=== PATIENT | female | born 1970 | race Caucasian/White ===

== ENCOUNTER 2018-05-12 06:48 | Day surgery (SDC) | payer MEDICAID ==
[2018-05-12] MEDS ORDERED: Lactated Ringers 1,000 ML IV SCH (07:15)
[2018-05-12] MEDS ORDERED: Cyanocobalamin (Vitamin B12) 1,000 MCG/ML SDV IM ONE (07:45)
[2018-05-12] MEDS ORDERED: Midazolam 1 MG/ML 2 ML SDV ONE (07:52)
[2018-05-12] MEDS ORDERED: fentaNYL 100 MCG/2 ML SDV ONE (07:52)
[2018-05-12] MEDS ORDERED: Propofol 200 MG/20 ML SDV ONE (07:52)
[2018-05-12] MEDS ORDERED: Glycopyrrolate 0.2 MG/ML 2 ML SDV IVPUSH ONE (08:00)
[2018-05-12] MEDS ORDERED: COPPER IV ONE ×4 (08:30)
[2018-05-12] MEDS ORDERED: MVI IV ONE ×4 (08:30)
[2018-05-12] MEDS ORDERED: [UNRECOGNIZED DRUG - OTHER] IV ONE ×4 (08:30)
[2018-05-12] MEDS ORDERED: MANG IV ONE ×4 (08:30)
[2018-05-12] MEDS ORDERED: VITAMIN K IV ONE ×4 (08:30)
[2018-05-12] MEDS ORDERED: ZINC IV ONE ×4 (08:30)
[2018-05-12] MEDS ORDERED: THIAMINE IV ONE ×4 (08:30)
[2018-05-12] MEDS ORDERED: CHROMIUM IV ONE ×4 (08:30)
[2018-05-12] MEDS ORDERED: MVI, Adult with Vitamin K 10 ML, Thiamine 200 MG, Chromium/Copper/Mang/Selen/Zn 1 ML in... IV ONE ×4 (08:30)
--- NOTE | 2018-05-15 07:39 | OR ---
DATE OF PROCEDURE: 05/12/2018 PREOPERATIVE DIAGNOSIS: Weight regain status post vertical banded gastroplasty combined with modified duodenal switch in the remote past. POSTOPERATIVE DIAGNOSES: 1. Weight regain status post vertical banded gastroplasty combined with modified duodenal switch in the remote past. 2. 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 OPERATIVE PROCEDURE: Upper GI endoscopy with antral biopsy for ENOC-Test ANESTHESIA: IV sedation. INDICATION FOR PROCEDURE: This is a 57-year-old female presenting with a history of vertical banded gastroplasty done in 2000 at [facility]. This was followed by a revision of that gastroplasty roughly a year later and then year after that, had a modified duodenal switch, which appears to have been a formation of duodenal ileostomy below the level of the vertical banded gastroplasty. Initially, the patient did have some significant weight loss, but now presents with quite severe recurrent obesity and plans to proceed with an upper GI endoscopy to evaluate the anatomy to determine what revisional procedures might be available. Potential risks including bleeding and perforation were discussed, and the patient wishes to proceed. DETAILS OF PROCEDURE: The patient was taken to the operating room and placed in a left lateral decubitus position. IV sedation was administered, after which the upper GI endoscope was passed orally through the length of the esophagus and into the proximal stomach. The findings to this level were normal. As one entered the proximal stomach, there were 2 openings into the stomach, one through what appeared to be the vertical banded gastroplasty site, but to the left of that there was a wide area of staple line dehiscence resulting in essentially no restriction at the vertical banded gastroplasty site and the remainder of the stomach otherwise appeared to be normal sized. 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 A simple biopsy was obtained from the antrum and sent for ENOC-Test for H. Pylori. No bleeding was seen from the biopsy site. At that point in time, no further problems were noted. Scope was withdrawn and the procedure was then concluded. The patient was taken to the recovery room in satisfactory condition. The patient would appear to be a candidate for a revisional procedure. This would either be a Soo-en-Y gastric bypass or conversion of the duodenal switch to a more conventional formulation. I think given the degree of gastroparesis as evidenced by the bezoar, I would argue for a Soo-en-Y gastric bypass so as to avoid problems with poor gastric emptying following a duodenal switch type procedure. Her insurance carrier will be contacted regarding prior authorization. Malik Santos MD /[id number]
== END 2018-05-12 11:26 | disposition home or self-care (01) ==
LOC: JP.SDS 06:48
PROVIDERS: ATTEND Surgery
DX: K95.89 Other complications of other bariatric procedure (principal); E66.01 Morbid (severe) obesity due to excess calories; Z98.84 Bariatric surgery status
CPT/HCPCS: 43235; 87081; J2250; J2704; J3010; J3420; J3490; J7120

== ENCOUNTER 2018-06-06 06:20 | Inpatient (IN) | payer MEDICAID ==
[2018-06-06] MEDS ORDERED: Acetaminophen 500 MG Tab PO ONE (06:30)
[2018-06-06] MEDS ORDERED: Dextrose 5%-Lactated Ringers 1,000 ML IV SCH (06:30)
[2018-06-06] MEDS ORDERED: Gabapentin 100 MG Cap PO ONE (06:30)
[2018-06-06] MEDS: Scopolamine 1.5 MG Transdermal Patch TOP SCH (06:44)
[2018-06-06] MEDS ORDERED: Glycopyrrolate 0.2 MG/ML 5 ML MDV ONE (07:14)
[2018-06-06] MEDS ORDERED: Neostigmine Methylsulfate 1 MG/ML 5 ML Syringe ONE (07:14)
[2018-06-06] MEDS ORDERED: Ondansetron 4 MG/2 ML SDV ONE (07:14)
[2018-06-06] MEDS ORDERED: Dexamethasone 4 MG/ML SDV ONE (07:14)
[2018-06-06] MEDS ORDERED: Propofol 200 MG/20 ML SDV ONE (07:14)
[2018-06-06] MEDS ORDERED: Rocuronium 50 MG/5 ML Vial ONE (07:16)
[2018-06-06] MEDS ORDERED: Meropenem 500 MG SDV ONE ×2 (07:37→10:14)
[2018-06-06] MEDS ORDERED: Ketamine 500 MG/5 ML MDV IV SCH (08:00)
[2018-06-06] MEDS ORDERED: Ketamine 50 MG in Sodium Chloride 0.9% 49.5 ML IV SCH (08:00)
[2018-06-06] MEDS ORDERED: Ropivacaine 60 ML, Dexamethasone 8 MG, EPINEPHrine 0.4 MG, Sodium Chloride 0.9% 17.6 ML NERVRT SCH ×4 (08:00)
[2018-06-06] MEDS ORDERED: Naloxone 0.4 MG/ML SDV IVPUSH PRN (08:05)
[2018-06-06] MEDS ORDERED: Naloxone 0.4 MG/ML SDV IV PRN (08:08)
[2018-06-06] MEDS: Meropenem 500 MG in Sodium Chloride 0.9% 50 ML IV ONE ×2 (08:09→16:47)
[2018-06-06] MEDS: HYDROmorphone/Normal Saline 15 MG/30 ML PCA IV PRN (08:19)
[2018-06-06] MEDS ORDERED: fentaNYL 250 MCG/5 ML SDV ONE (09:29)
[2018-06-06] MEDS ORDERED: Lactated Ringers 1,000 ML ONE (09:42)
[2018-06-06] MEDS ORDERED: Mupirocin Oint 22 GM Tube TOP ONE (11:00)
[2018-06-06] MEDS ORDERED: Ondansetron 4 MG/2 ML SDV IVPUSH PRN (13:23)
[2018-06-06] MEDS: Acetaminophen 500 MG Tab PO SCH ×2 (16:23→20:08)
[2018-06-06] MEDS: Meropenem 500 MG in Sodium Chloride 0.9% 50 ML IV SCH ×2 (16:23→20:08)
[2018-06-06] MEDS: Ibuprofen 600 MG Tab PO SCH ×2 (17:37→21:13)
[2018-06-06] MEDS: Gabapentin 100 MG Cap PO SCH (20:09)
[2018-06-06] MEDS ORDERED: Lactated Ringers 1,000 ML IV SCH (20:35)
[2018-06-06] MEDS: DULoxetine 30 MG Cap PO SCH (21:12)
[2018-06-06] MEDS: Levothyroxine 100 MCG, Levothyroxine 25 MCG PO SCH ×2 (21:13)
[2018-06-06] MEDS ORDERED: Lactated Ringers 500 ML IV ONE (21:24)
[2018-06-06] MEDS ORDERED: Pantoprazole 40 MG Tab.CR PO ONE (21:30)
[2018-06-06] MEDS: Dextrose 5%-Lactated Ringers 1,000 ML IV SCH (23:50)
[2018-06-07] MEDS: HYDROmorphone/Normal Saline 15 MG/30 ML PCA IV PRN ×2 (00:27→19:47)
[2018-06-07] MEDS ORDERED: Lactated Ringers 500 ML IV SCH (01:50)
[2018-06-07] MEDS: Acetaminophen 500 MG Tab PO SCH ×4 (02:05→20:10)
[2018-06-07] MEDS: Meropenem 500 MG in Sodium Chloride 0.9% 50 ML IV SCH ×4 (02:05→20:09)
[2018-06-07] MEDS: Ibuprofen 600 MG Tab PO SCH ×4 (05:17→22:16)
[2018-06-07] MEDS: Dextrose 5%-Lactated Ringers 1,000 ML IV SCH ×2 (05:22→23:55)
[2018-06-07] MEDS ORDERED: Pantoprazole 40 MG Tab.CR PO SCH ×3 (07:30→21:00)
[2018-06-07] MEDS ORDERED: Levothyroxine 100 MCG, Levothyroxine 25 MCG PO SCH ×2 (07:30)
--- NOTE | 2018-06-07 07:46 | PCM.SURGPN ---
- General Info Date of Service: 06/07/18 Date of Surgery/Procedure: 06/06/18 Post-Op Diagnosis: Post panniculectomy with open abdominal hernia repair Functional Status: Reports: Pain Controlled, Ambulating - Review of Systems Systems Review Comment:: Marcie is a 47 YO female post op day 1. Alert, orientated, sitting up in bed. Pain controlled with HOUSEKEEPING CLEANER. Vital signs stable. Oral intake 350 ice chips only. Urine output via Beauchamp catheter 555 mL. Due to marginal urine output, patient was given 2 L of LR bolus. 4 ZAINAB drains 20, 100, 35, and 40 respectively. Drainage. - Patient Data Vitals - Most Recent: Last Vital Signs Temp 35.7 C 06/07/18 03:49 Pulse 56 L 06/07/18 03:49 Resp 17 06/07/18 03:49 BP 94/55 L 06/07/18 03:49 Pulse Ox 87 L 06/07/18 05:38 Weight - Most Recent: 130.635 kg I&O - Last 24 Hours: Intake & Output 06/06/18 06/07/18 06/07/18 22:59 06:59 14:59 Intake Total 1217 2734 Output Total 460 290 Balance 757 2444 Med Orders - Current: Current Medications Acetaminophen (Tylenol Extra Strength) 1,000 mg PO Q6H [facility] Last Admin: 06/07/18 02:05 Dose: 1,000 mg Cyclobenzaprine HCl (Flexeril) 10 mg PO Q8H PRN PRN Reason: Muscle Spasm Duloxetine HCl (Cymbalta) 120 mg PO BEDTIME [facility] Last Admin: 06/06/18 21:12 Dose: 120 mg Gabapentin (Neurontin) 100 mg PO BID [facility] Last Admin: 06/06/18 20:09 Dose: 100 mg Hydromorphone HCl (Dilaudid [employer] Sales [employer] Service [employer]ician 15 Mg In Ns 30 Ml) 0 mg IV ASDIRECTED PRN; Protocol PRN Reason: Pain Last Admin: 06/07/18 00:27 Dose: 15 mg Meropenem 500 mg/ Sodium (Chloride) 50 mls @ 100 mls/hr IV Q6H [facility] Stop: 06/07/18 20:29 Last Admin: 06/07/18 02:05 Dose: 100 mls/hr Dextrose/Lactated Ringer's (Dextrose 5%-Lactated Ringers) 1,000 mls @ 100 mls/ hr IV ASDIRECTED [facility] Ibuprofen (Motrin) 600 mg PO QID [facility] Last Admin: 06/07/18 05:17 Dose: 600 mg Levothyroxine Sodium 100 mcg/ (Levothyroxine Sodium 25 mcg) 125 mcg PO BEDTIME [facility] Last Admin: 06/06/18 21:13 Dose: 125 mcg Meloxicam (Mobic) 7.5 mg PO DAILY@0800 [facility] Mupirocin (Bactroban Oint) 0 gm TOP DAILY [facility] Naloxone HCl (Narcan) 0.1 mg IV ASDIRECTED PRN PRN Reason: decreased respiratory rate Scopolamine Patch (Check) 1 each TOP DAILY [facility] Ondansetron HCl (Zofran) 4 mg IVPUSH Q4H PRN PRN Reason: Nausea/Vomiting Pantoprazole Sodium (Protonix) 40 mg PO BEDTIME [facility] Scopolamine (Transderm-Scop) 1.5 mg TOP Q72H [facility] Last Admin: 06/06/18 06:44 Dose: 1.5 mg Zolpidem Tartrate (Ambien) 5 mg PO BEDTIME PRN PRN Reason: SLEEP Discontinued Medications Acetaminophen (Tylenol Extra Strength) 1,000 mg PO ONETIME ONE Stop: 06/06/18 06:31 Last Admin: 06/06/18 06:44 Dose: 1,000 mg Ropivacaine 60 ml/Dexamethasone 8 mg/Epinephrine HCl 0.4 mg/ Sodium Chloride 17.6 ml 0 ml NERVRT ASDIRECTED [facility] Last Admin: 06/06/18 08:58 Dose: 80 syringe Dexamethasone (Dexamethasone) Confirm Administered Dose 4 mg .ROUTE .STK-MED ONE Stop: 06/06/18 07:15 Duloxetine HCl (Cymbalta) 120 mg PO DAILY [facility] Fentanyl (Sublimaze) Confirm Administered Dose 250 mcg .ROUTE .STK-MED ONE Stop: 06/06/18 09:30 Fentanyl Citrate (Fentanyl) Confirm Administered Dose 500 mcg .ROUTE .STK-MED ONE Stop: 06/06/18 07:18 Gabapentin (Neurontin) 100 mg PO ONETIME ONE Stop: 06/06/18 06:31 Last Admin: 06/06/18 06:44 Dose: 100 mg Glycopyrrolate (Robinul) Confirm Administered Dose 1 mg .ROUTE .STK-MED ONE Stop: 06/06/18 07:15 Dextrose/Lactated Ringer's (Dextrose 5%-Lactated Ringers) 1,000 mls @ 100 mls/ hr IV ASDIRECTED [facility] Last Admin: 06/06/18 07:44 Dose: 100 mls/hr Meropenem 500 mg/ Sodium (Chloride) 50 mls @ 100 mls/hr IV ONETIME ONE Stop: 06/06/18 06:59 Last Admin: 06/06/18 16:47 Dose: Not Given Ketamine HCl 50 mg/ Sodium (Chloride) 50 mls @ 15.6 mls/hr IV ASDIRECTED [facility] Linezolid (Zyvox) Confirm Administered Dose 300 mls @ as directed .ROUTE .STK- MED ONE Stop: 06/06/18 07:38 Lactated Ringer's (Ringers, Lactated) Confirm Administered Dose 1,000 mls @ as directed .ROUTE .STK-MED ONE Stop: 06/06/18 09:43 Linezolid (Zyvox) Confirm Administered Dose 300 mls @ as directed .ROUTE .STK- MED ONE Stop: 06/06/18 10:15 Dextrose/Lactated Ringer's (Dextrose 5%-Lactated Ringers) 1,000 mls @ 200 mls/ hr IV ASDIRECTED [facility] Last Admin: 06/07/18 05:22 Dose: 200 mls/hr Lactated Ringer's (Ringers, Lactated) 1,000 mls @ 500 mls/hr IV ASDIRECTED [facility] Stop: 06/06/18 21:35 Lactated Ringer's (Ringers, Lactated) 500 mls @ 500 mls/hr IV ONETIME ONE Stop: 06/06/18 22:23 Last Admin: 06/06/18 21:48 Dose: 500 mls/hr Lactated Ringer's (Ringers, Lactated) 500 mls @ 500 mls/hr IV ASDIRECTED [facility] Stop: 06/07/18 02:49 Last Admin: 06/07/18 02:05 Dose: 500 mls/hr Ketamine HCl (Ketalar) 26 mg IV ASDIRECTED [facility] Levothyroxine Sodium 100 mcg/ (Levothyroxine Sodium 25 mcg) 125 mcg PO DAILY@ 0730 [facility] Linezolid (Zyvox) 1,200 mg IRR .STK-MED ONE Stop: 06/06/18 09:08 Last Admin: 06/06/18 09:07 Dose: 1,200 mg Meropenem (Merrem) Confirm Administered Dose 500 mg .ROUTE .STK-MED ONE Stop: 06/06/18 07:38 Last Admin: 06/06/18 09:06 Dose: 1,000 mg Meropenem (Merrem) Confirm Administered Dose 500 mg .ROUTE .STK-MED ONE Stop: 06/06/18 10:15 Mupirocin (Bactroban Oint) 0 gm TOP ONETIME ONE Stop: 06/06/18 11:01 Last Admin: 06/06/18 10:57 Dose: 1 applic Neostigmine Methylsulfate (Neostigmine) Confirm Administered Dose 5 mg .ROUTE .ST-MED ONE Stop: 06/06/18 07:15 Ondansetron HCl (Zofran) Confirm Administered Dose 4 mg .ROUTE .STK-MED ONE Stop: 06/06/18 07:15 Pantoprazole Sodium (Protonix) 40 mg PO ACBREAKFAST CONRAD Pantoprazole Sodium (Protonix) 40 mg PO ONETIME ONE Stop: 06/06/18 21:31 Last Admin: 06/06/18 21:48 Dose: 40 mg Pantoprazole Sodium (Protonix) 40 mg PO ACBREAKFAST CONRAD Propofol (Diprivan 20 Ml) Confirm Administered Dose 200 mg .ROUTE .STK-MED ONE Stop: 06/06/18 07:15 Rocuronium Jensen (Zemuron) Confirm Administered Dose 100 mg .ROUTE .ST-MED ONE Stop: 06/06/18 07:17 - Exam Wound/Incisions: Dressing Dry and Intact Quality Assessment: Urine Catheter (to monitor urine output due to marginal output yesterday) General: Alert, Oriented Neck: Supple Lungs: Clear to Auscultation, Normal Respiratory Effort Cardiovascular: Regular Rate, Regular Rhythm GI/Abdominal Exam: Other (Dressing dry and intact, abdominal binders on, and ZAINAB drains intact x4.) Extremities: Normal Inspection, No Pedal Edema, Other (SCDs on) Skin: Dry Neurological: No New Focal Deficit Psy/Mental Status: Normal Affect, Normal Mood - Problem List Review Problem List Initiated/Reviewed/Updated: Yes - My Orders Last 24 Hours: Active Orders 24 hr Category Date Time Status Patient Status [ADT] Routine ADT 06/06/18 11:30 Active Ambulate [RC] ASDIRECTED Care 06/06/18 13:39 Active Communication Order [RC] STAT Care 06/06/18 08:05 Active Drain Management [RC] Q12H Care 06/06/18 13:35 Active Beauchamp Catheter Insertion [Insert Urinary Catheter] [OM. Care 06/06/18 13:45 Ordered PC] Q24H Head of Bed Elevation [RC] CONTINUOUS Care 06/06/18 13:39 Active May Shower [RC] ASDIRECTED Care 06/07/18 07:20 Active Notify Provider [RC] PRN Care 06/06/18 08:05 Active Overnight Pulse Oximetry [RC] Click to Edit Care 06/06/18 13:34 Active HOUSEKEEPING CLEANER Record [RC] PER UNIT ROUTINE Care 06/06/18 08:05 Active Pneumonia Education [RC] UPON Care 06/06/18 13:39 Active Pulse Oximetry [RC] CONTINUOUS Care 06/06/18 08:05 Active RT Incentive Spirometry [RC] ASDIRECTED Care 06/06/18 13:39 Active Turn, Cough, Deep Breathe [RC] Q1HWA Care 06/06/18 13:39 Active Up to Chair [RC] TIDMEALS Care 06/06/18 13:39 Active Urinary Catheter Assessment [RC] ASDIRECTED Care 06/06/18 13:37 Active PT Evaluation and Treatment [CONS] Routine Cons 06/07/18 07:21 Active Respiratory Care Assess and Treatment [CONS] Routine Cons 06/06/18 13:39 Active NPO [Nothing Per Oral Diet] [DIET] Diet 06/06/18 Dinner Active Regular Diet [DIET] Diet 06/07/18 Breakfast Active Acetaminophen [Tylenol Extra Strength] Med 06/06/18 14:00 Active 1,000 mg PO Q6H Cyclobenzaprine [Flexeril] Med 06/06/18 13:24 Active 10 mg PO Q8H PRN DULoxetine [Cymbalta] Med 06/06/18 21:00 Active 120 mg PO BEDTIME Dextrose 5%-Lactated Ringers 1,000 ml Med 06/07/18 12:00 Active IV ASDIRECTED Gabapentin [Neurontin] Med 06/06/18 21:00 Active 100 mg PO BID HYDROmorphone/Normal Saline [Dilaudid HOUSEKEEPING CLEANER 15 MG in NS Med 06/06/18 08:05 Active 30 ML] See Protocol IV ASDIRECTED PRN Ibuprofen [Motrin] Med 06/06/18 16:00 Active 600 mg PO QID Levothyroxine [Synthroid] Med 06/06/18 21:00 Active 125 mcg PO BEDTIME Meloxicam [Mobic] Med 06/07/18 08:00 Hold 7.5 mg PO DAILY@0800 Meropenem [Merrem] 500 mg Med 06/06/18 14:00 Active Sodium Chloride 0.9% [Normal Saline] 50 ml IV Q6H Mupirocin Oint [Bactroban Oint] Med 06/07/18 09:00 Active 0 gm TOP DAILY Naloxone [Narcan] Med 06/06/18 08:08 Active 0.1 mg IV ASDIRECTED PRN Non-Formulary Medication [NF Drug] Med 06/06/18 13:23 Active 1 each TOP DAILY Ondansetron [Zofran] Med 06/06/18 13:23 Active 4 mg IVPUSH Q4H PRN Pantoprazole [ProTONIX] Med 06/07/18 21:00 Active 40 mg PO BEDTIME Zolpidem [Ambien] Med 06/06/18 13:30 Active 5 mg PO BEDTIME PRN Abdominal Binder [OM.PC] Routine Oth 06/06/18 13:36 Ordered Medication Discontinuation Instructions [OM.PC] Stat Oth 06/06/18 08:05 Ordered Oral Care [OM.PC] BID Oth 06/06/18 13:45 Ordered Oral Care [OM.PC] BID Oth 06/07/18 13:45 Ordered Pulse Oximetry Continuous Monitoring [OM.PC] Routine Oth 06/06/18 13:34 Ordered Medication Orders Acetaminophen (Tylenol Extra Strength) 1,000 mg PO Q6H [facility] Last Admin: 06/07/18 02:05 Dose: 1,000 mg Admin: 06/06/18 20:08 Dose: 1,000 mg Admin: 06/06/18 16:23 Dose: 1,000 mg Cyclobenzaprine HCl (Flexeril) 10 mg PO Q8H PRN PRN Reason: Muscle Spasm Duloxetine HCl (Cymbalta) 120 mg PO BEDTIME [facility] Last Admin: 06/06/18 21:12 Dose: 120 mg Gabapentin (Neurontin) 100 mg PO BID [facility] Last Admin: 06/06/18 20:09 Dose: 100 mg Hydromorphone HCl (Dilaudid Electronic Sales And Service Technician 15 Mg In Ns 30 Ml) 0 mg IV ASDIRECTED PRN; Protocol PRN Reason: Pain Last Admin: 06/07/18 00:27 Dose: 15 mg Admin: 06/06/18 08:19 Dose: 0.3 mg Meropenem 500 mg/ Sodium (Chloride) 50 mls @ 100 mls/hr IV Q6H [facility] Stop: 06/07/18 20:29 Last Admin: 06/07/18 02:05 Dose: 100 mls/hr Admin: 06/06/18 20:08 Dose: 100 mls/hr Admin: 06/06/18 16:23 Dose: 100 mls/hr Dextrose/Lactated Ringer's (Dextrose 5%-Lactated Ringers) 1,000 mls @ 100 mls/ hr IV ASDIRECTED [facility] Ibuprofen (Motrin) 600 mg PO QID [facility] Last Admin: 06/07/18 05:17 Dose: 600 mg Admin: 06/06/18 21:13 Dose: 600 mg Admin: 06/06/18 17:37 Dose: 600 mg Levothyroxine Sodium 100 mcg/ (Levothyroxine Sodium 25 mcg) 125 mcg PO BEDTIME [facility] Last Admin: 06/06/18 21:13 Dose: 125 mcg Meloxicam (Mobic) 7.5 mg PO DAILY@0800 [facility] Mupirocin (Bactroban Oint) 0 gm TOP DAILY [facility] Naloxone HCl (Narcan) 0.1 mg IV ASDIRECTED PRN PRN Reason: decreased respiratory rate Scopolamine Patch (Check) 1 each TOP DAILY [facility] Ondansetron HCl (Zofran) 4 mg IVPUSH Q4H PRN PRN Reason: Nausea/Vomiting Pantoprazole Sodium (Protonix) 40 mg PO BEDTIME [facility] Scopolamine (Transderm-Scop) 1.5 mg TOP Q72H [facility] Last Admin: 06/06/18 06:44 Dose: 1.5 mg Zolpidem Tartrate (Ambien) 5 mg PO BEDTIME PRN PRN Reason: SLEEP - Assessment Assessment (Free Text/Narrative):: Assessment: 1. Operation: open repair recurrent incarecerated hernia with mesh panniculectomy excision of subfacial lipoma Post op diagnosis: for recurrent incisional incarcerated henia large abdominal pannus Subfacial lipoma left lateral abdominal wall (about 4 cm) Date of Surgery: 06/06/18 Surgeon: Malik Santos MD hernia repair - Plan Plan (Free Text/Narrative):: Plan: Regular diet PT to consult, evaluate and treat Decrease IV to 100 mL at noon To leave Beauchamp in for intake and output monitoring May shower
[2018-06-07] MEDS ORDERED: Meloxicam 7.5 MG Tab PO SCH (08:00)
[2018-06-07] MEDS ORDERED: DULoxetine 30 MG Cap PO SCH (09:00)
[2018-06-07] MEDS: Gabapentin 100 MG Cap PO SCH ×2 (09:34→20:11)
[2018-06-07] MEDS: SCOPOLAMINE PATCH CHECK TOP SCH (09:34)
[2018-06-07] MEDS: Mupirocin Oint 22 GM Tube TOP SCH (09:40)
[2018-06-07] MEDS: diphenhydrAMINE 25 MG Cap PO PRN ×4 (11:05→23:14)
[2018-06-07] MEDS: DULoxetine 30 MG Cap PO SCH (20:10)
[2018-06-07] MEDS: Levothyroxine 100 MCG, Levothyroxine 25 MCG PO SCH ×2 (20:11)
[2018-06-08] MEDS: Acetaminophen 500 MG Tab PO SCH ×4 (02:21→19:51)
[2018-06-08] MEDS ORDERED: Calcium Carbonate 500 MG Tab.Chew PO ONE (03:30)
[2018-06-08] MEDS: Ibuprofen 600 MG Tab PO SCH ×4 (05:44→21:51)
[2018-06-08] MEDS: diphenhydrAMINE 25 MG Cap PO PRN ×3 (07:15→22:49)
[2018-06-08] MEDS: Pantoprazole 40 MG Tab.CR PO SCH ×2 (07:21→16:12)
[2018-06-08] MEDS: SCOPOLAMINE PATCH CHECK TOP SCH (08:49)
[2018-06-08] MEDS: Mupirocin Oint 22 GM Tube TOP SCH (08:56)
[2018-06-08] MEDS: Gabapentin 100 MG Cap PO SCH ×2 (08:57→21:50)
[2018-06-08] MEDS: HYDROmorphone 2 MG Tab PO PRN ×4 (08:57→23:37)
[2018-06-08] MEDS: Dextrose 5%-Lactated Ringers 1,000 ML IV SCH ×2 (08:58→18:11)
--- NOTE | 2018-06-08 16:42 | PCM.SURGPN ---
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 Pertinent positives on ROS includes itching which is controlled with showering and Benadryl at this time and heartburn after eating. No other pertinent negatives or positives to note. 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 No other questions or concerns at this time. - Patient Data Vitals - Most Recent: Last Vital Signs Temp 36.3 C 06/08/18 15:02 Pulse 82 06/08/18 15:02 Resp 16 06/08/18 15:02 BP 114/56 L 06/08/18 15:02 Pulse Ox 95 06/08/18 15:02 Weight - Most Recent: 130.635 kg I&O - Last 24 Hours: Intake & Output 06/08/18 06/08/18 06/08/18 06:59 14:59 22:59 Intake Total 2418 300 Output Total 675 520 900 Balance 1743 -220 900 Med Orders - Current: Current Medications Acetaminophen (Tylenol Extra Strength) 1,000 mg PO Q6H [facility] Last Admin: 06/08/18 14:20 Dose: 1,000 mg Cyclobenzaprine HCl (Flexeril) 10 mg PO Q8H PRN PRN Reason: Muscle Spasm Diphenhydramine HCl (Benadryl) 25 mg PO Q4H PRN PRN Reason: Itching Last Admin: 06/08/18 11:23 Dose: 25 mg Duloxetine HCl (Cymbalta) 120 mg PO BEDTIME [facility] Last Admin: 06/07/18 20:10 Dose: 120 mg Gabapentin (Neurontin) 100 mg PO BID [facility] Last Admin: 06/08/18 08:57 Dose: 100 mg Hydromorphone HCl (Dilaudid) 4 mg PO Q4H PRN PRN Reason: Pain Last Admin: 06/08/18 15:01 Dose: 4 mg Dextrose/Lactated Ringer's (Dextrose 5%-Lactated Ringers) 1,000 mls @ 100 mls/ hr IV ASDIRECTED [facility] Last Admin: 06/08/18 08:58 Dose: 100 mls/hr Ibuprofen (Motrin) 600 mg PO QID [facility] Last Admin: 06/08/18 16:11 Dose: 600 mg Levothyroxine Sodium 100 mcg/ (Levothyroxine Sodium 25 mcg) 125 mcg PO BEDTIME [facility] Last Admin: 06/07/18 20:11 Dose: 125 mcg Meloxicam (Mobic) 7.5 mg PO DAILY@0800 [facility] Mupirocin (Bactroban Oint) 0 gm TOP DAILY [facility] Last Admin: 06/08/18 08:56 Dose: 1 applic Scopolamine Patch (Check) 1 each TOP DAILY [facility] Last Admin: 06/08/18 08:49 Dose: Not Given Ondansetron HCl (Zofran) 4 mg IVPUSH Q4H PRN PRN Reason: Nausea/Vomiting Last Admin: 06/08/18 08:58 Dose: 4 mg Pantoprazole Sodium (Protonix) 40 mg PO BIDAC [facility] Last Admin: 06/08/18 16:12 Dose: 40 mg Scopolamine (Transderm-Scop) 1.5 mg TOP Q72H [facility] Last Admin: 06/06/18 06:44 Dose: 1.5 mg Zolpidem Tartrate (Ambien) 5 mg PO BEDTIME PRN PRN Reason: SLEEP Discontinued Medications Acetaminophen (Tylenol Extra Strength) 1,000 mg PO ONETIME ONE Stop: 06/06/18 06:31 Last Admin: 06/06/18 06:44 Dose: 1,000 mg Calcium Carbonate/Glycine (Tums) 1,000 mg PO ONETIME ONE Stop: 06/08/18 03:31 Last Admin: 06/08/18 03:43 Dose: 1,000 mg Ropivacaine 60 ml/Dexamethasone 8 mg/Epinephrine HCl 0.4 mg/ Sodium Chloride 17.6 ml 0 ml NERVRT ASDIRECTED [facility] Last Admin: 06/06/18 08:58 Dose: 80 syringe Dexamethasone (Dexamethasone) Confirm Administered Dose 4 mg .ROUTE .STK-MED ONE Stop: 06/06/18 07:15 Duloxetine HCl (Cymbalta) 120 mg PO DAILY [facility] Fentanyl (Sublimaze) Confirm Administered Dose 250 mcg .ROUTE .STK-MED ONE Stop: 06/06/18 09:30 Fentanyl Citrate (Fentanyl) Confirm Administered Dose 500 mcg .ROUTE .[facility] ONE Stop: 06/06/18 07:18 Gabapentin (Neurontin) 100 mg PO ONETIME ONE Stop: 06/06/18 06:31 Last Admin: 06/06/18 06:44 Dose: 100 mg Glycopyrrolate (Robinul) Confirm Administered Dose 1 mg .ROUTE .[facility] ONE Stop: 06/06/18 07:15 Hydromorphone HCl (Dilaudid Zipper Slide Attacher 15 Mg In Ns 30 Ml) 0 mg IV ASDIRECTED PRN; Protocol PRN Reason: Pain Last Admin: 06/07/18 19:47 Dose: 15 mg Dextrose/Lactated Ringer's (Dextrose 5%-Lactated Ringers) 1,000 mls @ 100 mls/ hr IV ASDIRECTED [facility] Last Admin: 06/06/18 07:44 Dose: 100 mls/hr Meropenem 500 mg/ Sodium (Chloride) 50 mls @ 100 mls/hr IV ONETIME ONE Stop: 06/06/18 06:59 Last Admin: 06/06/18 16:47 Dose: Not Given Ketamine HCl 50 mg/ Sodium (Chloride) 50 mls @ 15.6 mls/hr IV ASDIRECTED [facility] Linezolid (Zyvox) Confirm Administered Dose 300 mls @ as directed .ROUTE .[facility] ONE Stop: 06/06/18 07:38 Lactated Ringer's (Ringers, Lactated) Confirm Administered Dose 1,000 mls @ as directed .ROUTE .[facility] ONE Stop: 06/06/18 09:43 Linezolid (Zyvox) Confirm Administered Dose 300 mls @ as directed .ROUTE .[facility] ONE Stop: 06/06/18 10:15 Dextrose/Lactated Ringer's (Dextrose 5%-Lactated Ringers) 1,000 mls @ 200 mls/ hr IV ASDIRECTED [facility] Last Admin: 06/07/18 05:22 Dose: 200 mls/hr Meropenem 500 mg/ Sodium (Chloride) 50 mls @ 100 mls/hr IV Q6H [facility] Stop: 06/07/18 20:29 Last Admin: 06/07/18 20:09 Dose: 100 mls/hr Lactated Ringer's (Ringers, Lactated) 1,000 mls @ 500 mls/hr IV ASDIRECTED [facility] Stop: 06/06/18 21:35 Lactated Ringer's (Ringers, Lactated) 500 mls @ 500 mls/hr IV ONETIME ONE Stop: 06/06/18 22:23 Last Admin: 06/06/18 21:48 Dose: 500 mls/hr Lactated Ringer's (Ringers, Lactated) 500 mls @ 500 mls/hr IV ASDIRECTED [facility] Stop: 06/07/18 02:49 Last Admin: 06/07/18 02:05 Dose: 500 mls/hr Ketamine HCl (Ketalar) 26 mg IV ASDIRECTED [facility] Levothyroxine Sodium 100 mcg/ (Levothyroxine Sodium 25 mcg) 125 mcg PO DAILY@ 0730 [facility] Linezolid (Zyvox) 1,200 mg IRR .STK-MED ONE Stop: 06/06/18 09:08 Last Admin: 06/06/18 09:07 Dose: 1,200 mg Meropenem (Merrem) Confirm Administered Dose 500 mg .ROUTE .STK-MED ONE Stop: 06/06/18 07:38 Last Admin: 06/06/18 09:06 Dose: 1,000 mg Meropenem (Merrem) Confirm Administered Dose 500 mg .ROUTE .STK-MED ONE Stop: 06/06/18 10:15 Mupirocin (Bactroban Oint) 0 gm TOP ONETIME ONE Stop: 06/06/18 11:01 Last Admin: 06/06/18 10:57 Dose: 1 applic Naloxone HCl (Narcan) 0.1 mg IV ASDIRECTED PRN PRN Reason: decreased respiratory rate Neostigmine Methylsulfate (Neostigmine) Confirm Administered Dose 5 mg .ROUTE .STK-MED ONE Stop: 06/06/18 07:15 Ondansetron HCl (Zofran) Confirm Administered Dose 4 mg .ROUTE .STK-MED ONE Stop: 06/06/18 07:15 Pantoprazole Sodium (Protonix) 40 mg PO ACBREAKFAST [facility] Pantoprazole Sodium (Protonix) 40 mg PO ONETIME ONE Stop: 06/06/18 21:31 Last Admin: 06/06/18 21:48 Dose: 40 mg Pantoprazole Sodium (Protonix) 40 mg PO ACBREAKFAST [facility] Pantoprazole Sodium (Protonix) 40 mg PO BEDTIME [facility] Last Admin: 06/07/18 20:11 Dose: 40 mg Propofol (Diprivan 20 Ml) Confirm Administered Dose 200 mg .ROUTE .STK-MED ONE Stop: 06/06/18 07:15 Rocuronium [place] (Zemuron) Confirm Administered Dose 100 mg .ROUTE .STK-MED ONE Stop: 06/06/18 07:17 - Exam Wound/Incisions: Dressing Dry and Intact Quality Assessment: Urine Catheter (850 mL output) General: Alert, Oriented HEENT: Pupils Equal, Pupils Reactive Neck: Supple Lungs: Clear to Auscultation, Normal Respiratory Effort Cardiovascular: Regular Rate, Regular Rhythm Extremities: No Pedal Edema Neurological: No New Focal Deficit Psy/Mental Status: Normal Affect, Normal Mood Physical Findings Comment:: [address] with outputs of 70, 120, 110, 115 respectively. - Problem List Review Problem List Initiated/Reviewed/Updated: Yes - My Orders Last 24 Hours: Active Orders 24 hr Category Date Time Status Communication Order [RC] ASDIRECTED Care 06/08/18 07:10 Active Communication Order [RC] Per Unit Routine Care 06/08/18 07:05 Active DC Beauchamp Catheter [Urinary Catheter Removal] [RC] Per Care 06/08/18 07:05 Active Unit Routine HYDROmorphone [Dilaudid] Med 06/08/18 07:00 Active 4 mg PO Q4H PRN Pantoprazole [ProTONIX] Med 06/08/18 08:00 Active 40 mg PO BIDAC Medication Orders Acetaminophen (Tylenol Extra Strength) 1,000 mg PO Q6H [facility] Last Admin: 06/08/18 14:20 Dose: 1,000 mg Admin: 06/08/18 07:22 Dose: 1,000 mg Admin: 06/08/18 02:21 Dose: 1,000 mg Admin: 06/07/18 20:10 Dose: 1,000 mg Admin: 06/07/18 14:18 Dose: 1,000 mg Admin: 06/07/18 09:31 Dose: 1,000 mg Admin: 06/07/18 02:05 Dose: 1,000 mg Admin: 06/06/18 20:08 Dose: 1,000 mg Admin: 06/06/18 16:23 Dose: 1,000 mg Cyclobenzaprine HCl (Flexeril) 10 mg PO Q8H PRN PRN Reason: Muscle Spasm Diphenhydramine HCl (Benadryl) 25 mg PO Q4H PRN PRN Reason: Itching Last Admin: 06/08/18 11:23 Dose: 25 mg Admin: 06/08/18 07:15 Dose: 25 mg Admin: 06/07/18 23:14 Dose: 25 mg Admin: 06/07/18 19:17 Dose: 25 mg Admin: 06/07/18 15:05 Dose: 25 mg Admin: 06/07/18 11:05 Dose: 25 mg Duloxetine HCl (Cymbalta) 120 mg PO BEDTIME [facility] Last Admin: 06/07/18 20:10 Dose: 120 mg Admin: 06/06/18 21:12 Dose: 120 mg Gabapentin (Neurontin) 100 mg PO BID [facility] Last Admin: 06/08/18 08:57 Dose: 100 mg Admin: 06/07/18 20:11 Dose: 100 mg Admin: 06/07/18 09:34 Dose: 100 mg Admin: 06/06/18 20:09 Dose: 100 mg Hydromorphone HCl (Dilaudid) 4 mg PO Q4H PRN PRN Reason: Pain Last Admin: 06/08/18 15:01 Dose: 4 mg Admin: 06/08/18 08:57 Dose: 4 mg Dextrose/Lactated Ringer's (Dextrose 5%-Lactated Ringers) 1,000 mls @ 100 mls/ hr IV ASDIRECTED [facility] Last Admin: 06/08/18 08:58 Dose: 100 mls/hr Infusion: 06/08/18 08:58 Dose: 100 mls/hr Admin: 06/07/18 23:55 Dose: 100 mls/hr Ibuprofen (Motrin) 600 mg PO QID [facility] Last Admin: 06/08/18 16:11 Dose: 600 mg Admin: 06/08/18 11:23 Dose: 600 mg Admin: 06/08/18 05:44 Dose: 600 mg Admin: 06/07/18 22:16 Dose: 600 mg Admin: 06/07/18 15:39 Dose: 600 mg Admin: 06/07/18 09:35 Dose: 600 mg Admin: 06/07/18 05:17 Dose: 600 mg Admin: 06/06/18 21:13 Dose: 600 mg Admin: 06/06/18 17:37 Dose: 600 mg Levothyroxine Sodium 100 mcg/ (Levothyroxine Sodium 25 mcg) 125 mcg PO BEDTIME [facility] Last Admin: 06/07/18 20:11 Dose: 125 mcg Admin: 06/06/18 21:13 Dose: 125 mcg Meloxicam (Mobic) 7.5 mg PO DAILY@0800 [facility] Mupirocin (Bactroban Oint) 0 gm TOP DAILY [facility] Last Admin: 06/08/18 08:56 Dose: 1 applic Admin: 06/07/18 09:40 Dose: 22 gm Scopolamine Patch (Check) 1 each TOP DAILY [facility] Last Admin: 06/08/18 08:49 Dose: Admin: 06/07/18 09:34 Dose: Ondansetron HCl (Zofran) 4 mg IVPUSH Q4H PRN PRN Reason: Nausea/Vomiting Last Admin: 06/08/18 08:58 Dose: 4 mg Pantoprazole Sodium (Protonix) 40 mg PO BIDAC [facility] Last Admin: 06/08/18 16:12 Dose: 40 mg Admin: 06/08/18 07:21 Dose: 40 mg Scopolamine (Transderm-Scop) 1.5 mg TOP Q72H [facility] Last Admin: 06/06/18 06:44 Dose: 1.5 mg Zolpidem Tartrate (Ambien) 5 mg PO BEDTIME PRN PRN Reason: SLEEP - Assessment Assessment (Free Text/Narrative):: Operation: open repair recurrent incarcerated hernia with mesh panniculectomy excision of subfacial lipoma Post op diagnosis: hernia repair for recurrent incisional incarcerated hernia large abdominal pannus Subfacial lipoma left lateral abdominal wall (about 4 cm) Date of Surgery: 06/06/18 Surgeon: Malik Santos MD - Plan Plan (Free Text/Narrative):: 1. Has taken 2-3 walks and should continue to do so and increase these to 4-6 walks as able. 2. 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 3. Beauchamp catheter will be removed today. 4. Dressing should be removed today and patient should shower. 5. Bacitracin should be used around ZAINAB drains. 6. Teach ZAINAB home care. 7. DC pulse oximetry. 8. Increase Protonix to BID for heartburn. 9. Patient should sit up for 2 hours after eating more than a 1/2 cup due to heartburn. 10. Continue Benadryl 25 mg PO every 4 hours PRN for itching.
[2018-06-08] MEDS: DULoxetine 30 MG Cap PO SCH (21:50)
[2018-06-08] MEDS: Levothyroxine 100 MCG, Levothyroxine 25 MCG PO SCH ×2 (21:51)
[2018-06-08] MEDS: Zolpidem 5 MG Tab PO PRN (21:57)
[2018-06-09] MEDS: Acetaminophen 500 MG Tab PO SCH ×4 (01:02→20:12)
[2018-06-09] MEDS: HYDROmorphone 2 MG Tab PO PRN ×4 (03:35→20:11)
[2018-06-09] MEDS: diphenhydrAMINE 25 MG Cap PO PRN ×2 (03:35→18:19)
[2018-06-09] MEDS: Dextrose 5%-Lactated Ringers 1,000 ML IV SCH (03:47)
[2018-06-09] MEDS: Ibuprofen 600 MG Tab PO SCH ×4 (05:41→21:58)
[2018-06-09] MEDS: Scopolamine 1.5 MG Transdermal Patch TOP SCH (06:28)
[2018-06-09] MEDS: Pantoprazole 40 MG Tab.CR PO SCH ×2 (07:40→15:30)
[2018-06-09] MEDS: Mupirocin Oint 22 GM Tube TOP SCH (08:15)
[2018-06-09] MEDS: SCOPOLAMINE PATCH CHECK TOP SCH (08:34)
[2018-06-09] MEDS: Gabapentin 100 MG Cap PO SCH ×2 (08:42→20:13)
[2018-06-09] MEDS ORDERED: Docusate Sodium 100 MG Cap PO SCH (09:00)
[2018-06-09] MEDS ORDERED: Bisacodyl 5 MG Tab PO SCH (09:00)
--- NOTE | 2018-06-09 13:37 | PCM.SURGPN ---
- Patient Data Vitals - Most Recent: Last Vital Signs Temp 35.3 C 06/09/18 11:00 Pulse 81 06/09/18 11:00 Resp 18 06/09/18 11:00 BP 115/70 06/09/18 11:00 Pulse Ox 97 06/09/18 11:00 Weight - Most Recent: 130.635 kg I&O - Last 24 Hours: Intake & Output 06/08/18 06/09/18 06/09/18 22:59 06:59 14:59 Intake Total 1929 3115 700 Output Total 1360 1665 Balance 569 1450 700 Med Orders - Current: Current Medications Acetaminophen (Tylenol Extra Strength) 1,000 mg PO Q6H COUNTS INCLUDE 234 BEDS AT THE [facility] Last Admin: 06/09/18 07:40 Dose: 1,000 mg Bisacodyl (Dulcolax) 20 mg PO BID COUNTS INCLUDE 234 BEDS AT THE [facility] Last Admin: 06/09/18 08:15 Dose: Not Given Cyclobenzaprine HCl (Flexeril) 10 mg PO Q8H PRN PRN Reason: Muscle Spasm Diphenhydramine HCl (Benadryl) 25 mg PO Q4H PRN PRN Reason: Itching Last Admin: 06/09/18 03:35 Dose: 25 mg Docusate Sodium (Colace) 100 mg PO BID COUNTS INCLUDE 234 BEDS AT THE [facility] Last Admin: 06/09/18 08:15 Dose: Not Given Duloxetine HCl (Cymbalta) 120 mg PO BEDTIME COUNTS INCLUDE 234 BEDS AT THE [facility] Last Admin: 06/08/18 21:50 Dose: 120 mg Gabapentin (Neurontin) 100 mg PO BID COUNTS INCLUDE 234 BEDS AT THE [facility] Last Admin: 06/09/18 08:42 Dose: 100 mg Hydromorphone HCl (Dilaudid) 4 mg PO Q4H PRN PRN Reason: Pain Last Admin: 06/09/18 09:33 Dose: 4 mg Dextrose/Lactated Ringer's (Dextrose 5%-Lactated Ringers) 1,000 mls @ 100 mls/ hr IV ASDIRECTED COUNTS INCLUDE 234 BEDS AT THE [facility] Last Admin: 06/09/18 03:47 Dose: 100 mls/hr Ibuprofen (Motrin) 600 mg PO QID COUNTS INCLUDE 234 BEDS AT THE [facility] Last Admin: 06/09/18 09:11 Dose: 600 mg Levothyroxine Sodium 100 mcg/ (Levothyroxine Sodium 25 mcg) 125 mcg PO BEDTIME COUNTS INCLUDE 234 BEDS AT THE [facility] Last Admin: 06/08/18 21:51 Dose: 125 mcg Meloxicam (Mobic) 7.5 mg PO DAILY@0800 COUNTS INCLUDE 234 BEDS AT THE [facility] Mupirocin (Bactroban Oint) 0 gm TOP DAILY COUNTS INCLUDE 234 BEDS AT THE [facility] Last Admin: 06/09/18 08:15 Dose: Not Given Scopolamine Patch (Check) 1 each TOP DAILY COUNTS INCLUDE 234 BEDS AT [facility] Last Admin: 06/09/18 08:34 Dose: Not Given Ondansetron HCl (Zofran) 4 mg IVPUSH Q4H PRN PRN Reason: Nausea/Vomiting Last Admin: 06/08/18 08:58 Dose: 4 mg Pantoprazole Sodium (Protonix) 40 mg PO BIDAC COUNTS INCLUDE 234 BEDS AT [facility] Last Admin: 06/09/18 07:40 Dose: 40 mg Zolpidem Tartrate (Ambien) 5 mg PO BEDTIME PRN PRN Reason: SLEEP Last Admin: 06/08/18 21:57 Dose: 5 mg Discontinued Medications Acetaminophen (Tylenol Extra Strength) 1,000 mg PO ONETIME ONE Stop: 06/06/18 06:31 Last Admin: 06/06/18 06:44 Dose: 1,000 mg Calcium Carbonate/Glycine (Tums) 1,000 mg PO ONETIME ONE Stop: 06/08/18 03:31 Last Admin: 06/08/18 03:43 Dose: 1,000 mg Ropivacaine 60 ml/Dexamethasone 8 mg/Epinephrine HCl 0.4 mg/ Sodium Chloride 17.6 ml 0 ml NERVRT ASDIRECTED COUNTS INCLUDE 234 BEDS AT THE [facility] Last Admin: 06/06/18 08:58 Dose: 80 syringe Dexamethasone (Dexamethasone) Confirm Administered Dose 4 mg .ROUTE .STK-MED ONE Stop: 06/06/18 07:15 Duloxetine HCl (Cymbalta) 120 mg PO DAILY COUNTS INCLUDE 234 BEDS AT THE [facility] Fentanyl (Sublimaze) Confirm Administered Dose 250 mcg .ROUTE .STK-MED ONE Stop: 06/06/18 09:30 Fentanyl Citrate (Fentanyl) Confirm Administered Dose 500 mcg .ROUTE .STK-MED ONE Stop: 06/06/18 07:18 Gabapentin (Neurontin) 100 mg PO ONETIME ONE Stop: 06/06/18 06:31 Last Admin: 06/06/18 06:44 Dose: 100 mg Glycopyrrolate (Robinul) Confirm Administered Dose 1 mg .ROUTE .STK-MED ONE Stop: 06/06/18 07:15 Hydromorphone HCl (Dilaudid [employer] 15 Mg In Ns 30 Ml) 0 mg IV ASDIRECTED PRN; Protocol PRN Reason: Pain Last Admin: 06/07/18 19:47 Dose: 15 mg Dextrose/Lactated Ringer's (Dextrose 5%-Lactated Ringers) 1,000 mls @ 100 mls/ hr IV ASDIRECTED COUNTS INCLUDE 234 BEDS AT THE [facility] Last Admin: 06/06/18 07:44 Dose: 100 mls/hr Meropenem 500 mg/ Sodium (Chloride) 50 mls @ 100 mls/hr IV ONETIME ONE Stop: 06/06/18 06:59 Last Admin: 06/06/18 16:47 Dose: Not Given Ketamine HCl 50 mg/ Sodium (Chloride) 50 mls @ 15.6 mls/hr IV ASDIRECTED COUNTS INCLUDE 234 BEDS AT THE [facility] Linezolid (Zyvox) Confirm Administered Dose 300 mls @ as directed .ROUTE .[facility] ONE Stop: 06/06/18 07:38 Lactated Ringer's (Ringers, Lactated) Confirm Administered Dose 1,000 mls @ as directed .ROUTE .[facility] ONE Stop: 06/06/18 09:43 Linezolid (Zyvox) Confirm Administered Dose 300 mls @ as directed .ROUTE .[facility] ONE Stop: 06/06/18 10:15 Dextrose/Lactated Ringer's (Dextrose 5%-Lactated Ringers) 1,000 mls @ 200 mls/ hr IV ASDIRECTED COUNTS INCLUDE 234 BEDS AT THE [facility] Last Admin: 06/07/18 05:22 Dose: 200 mls/hr Meropenem 500 mg/ Sodium (Chloride) 50 mls @ 100 mls/hr IV Q6H COUNTS INCLUDE 234 BEDS AT THE [facility] Stop: 06/07/18 20:29 Last Admin: 06/07/18 20:09 Dose: 100 mls/hr Lactated Ringer's (Ringers, Lactated) 1,000 mls @ 500 mls/hr IV ASDIRECTED COUNTS INCLUDE 234 BEDS AT THE [facility] Stop: 06/06/18 21:35 Lactated Ringer's (Ringers, Lactated) 500 mls @ 500 mls/hr IV ONETIME ONE Stop: 06/06/18 22:23 Last Admin: 06/06/18 21:48 Dose: 500 mls/hr Lactated Ringer's (Ringers, Lactated) 500 mls @ 500 mls/hr IV ASDIRECTED COUNTS INCLUDE 234 BEDS AT [facility] Stop: 06/07/18 02:49 Last Admin: 06/07/18 02:05 Dose: 500 mls/hr Ketamine HCl (Ketalar) 26 mg IV ASDIRECTED [place] Levothyroxine Sodium 100 mcg/ (Levothyroxine Sodium 25 mcg) 125 mcg PO DAILY@ 0730 COUNTS INCLUDE 234 BEDS AT THE [facility] Linezolid (Zyvox) 1,200 mg IRR .STK-MED ONE Stop: 06/06/18 09:08 Last Admin: 06/06/18 09:07 Dose: 1,200 mg Meropenem (Merrem) Confirm Administered Dose 500 mg .ROUTE .STK-MED ONE Stop: 06/06/18 07:38 Last Admin: 06/06/18 09:06 Dose: 1,000 mg Meropenem (Merrem) Confirm Administered Dose 500 mg .ROUTE .STK-MED ONE Stop: 06/06/18 10:15 Mupirocin (Bactroban Oint) 0 gm TOP ONETIME ONE Stop: 06/06/18 11:01 Last Admin: 06/06/18 10:57 Dose: 1 applic Naloxone HCl (Narcan) 0.1 mg IV ASDIRECTED PRN PRN Reason: decreased respiratory rate Neostigmine Methylsulfate (Neostigmine) Confirm Administered Dose 5 mg .ROUTE .STK-MED ONE Stop: 06/06/18 07:15 Ondansetron HCl (Zofran) Confirm Administered Dose 4 mg .ROUTE .STK-MED ONE Stop: 06/06/18 07:15 Pantoprazole Sodium (Protonix) 40 mg PO ACBREAKFAST COUNTS INCLUDE 234 BEDS AT [facility] Pantoprazole Sodium (Protonix) 40 mg PO ONETIME ONE Stop: 06/06/18 21:31 Last Admin: 06/06/18 21:48 Dose: 40 mg Pantoprazole Sodium (Protonix) 40 mg PO ACBREAKFAST COUNTS INCLUDE 234 BEDS AT [facility] Pantoprazole Sodium (Protonix) 40 mg PO BEDTIME COUNTS INCLUDE 234 BEDS AT [facility] Last Admin: 06/07/18 20:11 Dose: 40 mg Propofol (Diprivan 20 Ml) Confirm Administered Dose 200 mg .ROUTE .STK-MED ONE Stop: 06/06/18 07:15 Rocuronium [place] (Zemuron) Confirm Administered Dose 100 mg .ROUTE .STK-MED ONE Stop: 06/06/18 07:17 Scopolamine (Transderm-Scop) 1.5 mg TOP Q72H COUNTS INCLUDE 234 BEDS AT [facility] Last Admin: 06/09/18 06:28 Dose: Not Given - Problem List Review Problem List Initiated/Reviewed/Updated: Yes - My Orders Last 24 Hours: Active Orders 24 hr Category Date Time Status Consult to Bariatric Services [CONS] Routine Cons 06/09/18 07:17 Active Consult to Sample Processor [CONS] Routine Cons 06/09/18 07:21 Active Bisacodyl [Dulcolax] Med 06/09/18 09:00 Active 20 mg PO BID Docusate Sodium [Colace] Med 06/09/18 09:00 Active 100 mg PO BID Medication Orders Acetaminophen (Tylenol Extra Strength) 1,000 mg PO Q6H COUNTS INCLUDE 234 BEDS AT [facility] Last Admin: 06/09/18 07:40 Dose: 1,000 mg Admin: 06/09/18 01:02 Dose: 1,000 mg Admin: 06/08/18 19:51 Dose: 1,000 mg Admin: 06/08/18 14:20 Dose: 1,000 mg Admin: 06/08/18 07:22 Dose: 1,000 mg Admin: 06/08/18 02:21 Dose: 1,000 mg Admin: 06/07/18 20:10 Dose: 1,000 mg Admin: 06/07/18 14:18 Dose: 1,000 mg Admin: 06/07/18 09:31 Dose: 1,000 mg Admin: 06/07/18 02:05 Dose: 1,000 mg Admin: 06/06/18 20:08 Dose: 1,000 mg Admin: 06/06/18 16:23 Dose: 1,000 mg Bisacodyl (Dulcolax) 20 mg PO BID COUNTS INCLUDE 234 BEDS AT [facility] Last Admin: 06/09/18 08:15 Dose: Cyclobenzaprine HCl (Flexeril) 10 mg PO Q8H PRN PRN Reason: Muscle Spasm Diphenhydramine HCl (Benadryl) 25 mg PO Q4H PRN PRN Reason: Itching Last Admin: 06/09/18 03:35 Dose: 25 mg Admin: 06/08/18 22:49 Dose: 25 mg Admin: 06/08/18 11:23 Dose: 25 mg Admin: 06/08/18 07:15 Dose: 25 mg Admin: 06/07/18 23:14 Dose: 25 mg Admin: 06/07/18 19:17 Dose: 25 mg Admin: 06/07/18 15:05 Dose: 25 mg Admin: 06/07/18 11:05 Dose: 25 mg Docusate Sodium (Colace) 100 mg PO BID COUNTS INCLUDE 234 BEDS AT [facility] Last Admin: 06/09/18 08:15 Dose: Duloxetine HCl (Cymbalta) 120 mg PO BEDTIME COUNTS INCLUDE 234 BEDS AT [facility] Last Admin: 06/08/18 21:50 Dose: 120 mg Admin: 06/07/18 20:10 Dose: 120 mg Admin: 06/06/18 21:12 Dose: 120 mg Gabapentin (Neurontin) 100 mg PO BID COUNTS INCLUDE 234 BEDS AT [facility] Last Admin: 06/09/18 08:42 Dose: 100 mg Admin: 06/08/18 21:50 Dose: 100 mg Admin: 06/08/18 08:57 Dose: 100 mg Admin: 06/07/18 20:11 Dose: 100 mg Admin: 06/07/18 09:34 Dose: 100 mg Admin: 06/06/18 20:09 Dose: 100 mg Hydromorphone HCl (Dilaudid) 4 mg PO Q4H PRN PRN Reason: Pain Last Admin: 06/09/18 09:33 Dose: 4 mg Admin: 06/09/18 03:35 Dose: 4 mg Admin: 06/08/18 23:37 Dose: 4 mg Admin: 06/08/18 19:42 Dose: 4 mg Admin: 06/08/18 15:01 Dose: 4 mg Admin: 06/08/18 08:57 Dose: 4 mg Dextrose/Lactated Ringer's (Dextrose 5%-Lactated Ringers) 1,000 mls @ 100 mls/ hr IV ASDIRECTED COUNTS INCLUDE 234 BEDS AT THE [facility] Last Admin: 06/09/18 03:47 Dose: 100 mls/hr Infusion: 06/09/18 03:47 Dose: 100 mls/hr Admin: 06/08/18 18:11 Dose: 100 mls/hr Infusion: 06/08/18 18:11 Dose: 100 mls/hr Admin: 06/08/18 08:58 Dose: 100 mls/hr Infusion: 06/08/18 08:58 Dose: 100 mls/hr Admin: 06/07/18 23:55 Dose: 100 mls/hr Ibuprofen (Motrin) 600 mg PO QID COUNTS INCLUDE 234 BEDS AT [facility] Last Admin: 06/09/18 09:11 Dose: 600 mg Admin: 06/09/18 05:41 Dose: 600 mg Admin: 06/08/18 21:51 Dose: 600 mg Admin: 06/08/18 16:11 Dose: 600 mg Admin: 06/08/18 11:23 Dose: 600 mg Admin: 06/08/18 05:44 Dose: 600 mg Admin: 06/07/18 22:16 Dose: 600 mg Admin: 06/07/18 15:39 Dose: 600 mg Admin: 06/07/18 09:35 Dose: 600 mg Admin: 06/07/18 05:17 Dose: 600 mg Admin: 06/06/18 21:13 Dose: 600 mg Admin: 06/06/18 17:37 Dose: 600 mg Levothyroxine Sodium 100 mcg/ (Levothyroxine Sodium 25 mcg) 125 mcg PO BEDTIME COUNTS INCLUDE 234 BEDS AT THE [facility] Last Admin: 06/08/18 21:51 Dose: 125 mcg Admin: 06/07/18 20:11 Dose: 125 mcg Admin: 06/06/18 21:13 Dose: 125 mcg Meloxicam (Mobic) 7.5 mg PO DAILY@0800 COUNTS INCLUDE 234 BEDS AT THE [facility] Mupirocin (Bactroban Oint) 0 gm TOP DAILY COUNTS INCLUDE 234 BEDS AT [facility] Last Admin: 06/09/18 08:15 Dose: Not Given Admin: 06/08/18 08:56 Dose: 1 applic Admin: 06/07/18 09:40 Dose: 22 gm Scopolamine Patch (Check) 1 each TOP DAILY COUNTS INCLUDE 234 BEDS AT [facility] Last Admin: 06/09/18 08:34 Dose: Admin: 06/08/18 08:49 Dose: Admin: 06/07/18 09:34 Dose: Ondansetron HCl (Zofran) 4 mg IVPUSH Q4H PRN PRN Reason: Nausea/Vomiting Last Admin: 06/08/18 08:58 Dose: 4 mg Pantoprazole Sodium (Protonix) 40 mg PO BIDAC COUNTS INCLUDE 234 BEDS AT [facility] Last Admin: 06/09/18 07:40 Dose: 40 mg Admin: 06/08/18 16:12 Dose: 40 mg Admin: 06/08/18 07:21 Dose: 40 mg Zolpidem Tartrate (Ambien) 5 mg PO BEDTIME PRN PRN Reason: SLEEP Last Admin: 06/08/18 21:57 Dose: 5 mg - Assessment Assessment (Free Text/Narrative):: Operation: open repair recurrent incarcerated hernia with mesh panniculectomy excision of subfacial lipoma Post op diagnosis: hernia repair for recurrent incisional incarcerated hernia large abdominal pannus Subfacial lipoma left lateral abdominal wall (about 4 cm) Date of Surgery: 06/06/18 Surgeon: Malik Santos MD - Plan Plan (Free Text/Narrative):: 1. Consult to bariatric services routine. 2. Consult to spray gun operator routine. 3. Start Dulcolax 20 mg PO BID. 4. Start Colace 100 mg PO BID. 5. Start Scopolamine 1.5 mg TOP every 72 hours.
--- NOTE | 2018-06-09 13:46 | PCM.SURGPN ---
- General Info Date of Service: 06/09/18 Date of Surgery/Procedure: 06/06/18 POD#: 3 Functional Status: Reports: Pain Controlled (Rates pain 7/10 using Dilaudid 4 mg PO every 4 hours and ibuprofen 600 mg PO and Tylenol 1000 mg PO ), Tolerating Diet, Ambulating, Urinating - Review of Systems Systems Review Comment:: 47 YO female Marcie Long is post op day 3 from an open panniculectomy repair and recurrent incarcerated hernia with mesh. The patient does not have any new concerns today. The itching is significantly better today. The pain she rates 7/ 10 despite having Dilaudid 4 mg PO every 4 hours and ibuprofen 600 mg and Tylenol 1,000mg PO every 6 hours. The heartburn has gotten better with sitting up after meals > 1/2 cup. She is now passing gas and BMs. Her only question was related to scheduling her next surgery, a partial gastrectomy with a RNY reconstruction. This will be determined when this incision is healed and the patient is doing well. - Patient Data Vitals - Most Recent: Last Vital Signs Temp 35.3 C 06/09/18 11:00 Pulse 81 06/09/18 11:00 Resp 18 06/09/18 11:00 BP 115/70 06/09/18 11:00 Pulse Ox 97 06/09/18 11:00 Weight - Most Recent: 130.635 kg I&O - Last 24 Hours: Intake & Output 06/08/18 06/09/18 06/09/18 22:59 06:59 14:59 Intake Total 1929 3115 700 Output Total 1360 1665 Balance 569 1450 700 Imaging Impressions - Last 24 Hrs: I was unable to view the chest x-ray this afternoon and could not recall all details we saw this AM. This should be added by co-signer before submission. Med Orders - Current: Current Medications Acetaminophen (Tylenol Extra Strength) 1,000 mg PO Q6H [facility] Last Admin: 06/09/18 07:40 Dose: 1,000 mg Bisacodyl (Dulcolax) 20 mg PO BID [facility] Last Admin: 06/09/18 08:15 Dose: Not Given Cyclobenzaprine HCl (Flexeril) 10 mg PO Q8H PRN PRN Reason: Muscle Spasm Diphenhydramine HCl (Benadryl) 25 mg PO Q4H PRN PRN Reason: Itching Last Admin: 06/09/18 03:35 Dose: 25 mg Docusate Sodium (Colace) 100 mg PO BID [facility] Last Admin: 06/09/18 08:15 Dose: Not Given Duloxetine HCl (Cymbalta) 120 mg PO BEDTIME [facility] Last Admin: 06/08/18 21:50 Dose: 120 mg Gabapentin (Neurontin) 100 mg PO BID [facility] Last Admin: 06/09/18 08:42 Dose: 100 mg Hydromorphone HCl (Dilaudid) 4 mg PO Q4H PRN PRN Reason: Pain Last Admin: 06/09/18 09:33 Dose: 4 mg Dextrose/Lactated Ringer's (Dextrose 5%-Lactated Ringers) 1,000 mls @ 100 mls/ hr IV ASDIRECTED [facility] Last Admin: 06/09/18 03:47 Dose: 100 mls/hr Ibuprofen (Motrin) 600 mg PO QID [facility] Last Admin: 06/09/18 09:11 Dose: 600 mg Levothyroxine Sodium 100 mcg/ (Levothyroxine Sodium 25 mcg) 125 mcg PO BEDTIME [facility] Last Admin: 06/08/18 21:51 Dose: 125 mcg Meloxicam (Mobic) 7.5 mg PO DAILY@0800 [facility] Mupirocin (Bactroban Oint) 0 gm TOP DAILY [facility] Last Admin: 06/09/18 08:15 Dose: Not Given Scopolamine Patch (Check) 1 each TOP DAILY [facility] Last Admin: 06/09/18 08:34 Dose: Not Given Ondansetron HCl (Zofran) 4 mg IVPUSH Q4H PRN PRN Reason: Nausea/Vomiting Last Admin: 06/08/18 08:58 Dose: 4 mg Pantoprazole Sodium (Protonix) 40 mg PO BIDAC [facility] Last Admin: 06/09/18 07:40 Dose: 40 mg Zolpidem Tartrate (Ambien) 5 mg PO BEDTIME PRN PRN Reason: SLEEP Last Admin: 06/08/18 21:57 Dose: 5 mg Discontinued Medications Acetaminophen (Tylenol Extra Strength) 1,000 mg PO ONETIME ONE Stop: 06/06/18 06:31 Last Admin: 06/06/18 06:44 Dose: 1,000 mg Calcium Carbonate/Glycine (Tums) 1,000 mg PO ONETIME ONE Stop: 06/08/18 03:31 Last Admin: 06/08/18 03:43 Dose: 1,000 mg Ropivacaine 60 ml/Dexamethasone 8 mg/Epinephrine HCl 0.4 mg/ Sodium Chloride 17.6 ml 0 ml NERVRT ASDIRECTED [facility] Last Admin: 06/06/18 08:58 Dose: 80 syringe Dexamethasone (Dexamethasone) Confirm Administered Dose 4 mg .ROUTE .[facility] ONE Stop: 06/06/18 07:15 Duloxetine HCl (Cymbalta) 120 mg PO DAILY [facility] Fentanyl (Sublimaze) Confirm Administered Dose 250 mcg .ROUTE .[facility] ONE Stop: 06/06/18 09:30 Fentanyl Citrate (Fentanyl) Confirm Administered Dose 500 mcg .ROUTE .[facility] ONE Stop: 06/06/18 07:18 Gabapentin (Neurontin) 100 mg PO ONETIME ONE Stop: 06/06/18 06:31 Last Admin: 06/06/18 06:44 Dose: 100 mg Glycopyrrolate (Robinul) Confirm Administered Dose 1 mg .ROUTE .[facility] ONE Stop: 06/06/18 07:15 Hydromorphone HCl (Dilaudid Tile Sprayer 15 Mg In Ns 30 Ml) 0 mg IV ASDIRECTED PRN; Protocol PRN Reason: Pain Last Admin: 06/07/18 19:47 Dose: 15 mg Dextrose/Lactated Ringer's (Dextrose 5%-Lactated Ringers) 1,000 mls @ 100 mls/ hr IV ASDIRECTED [facility] Last Admin: 06/06/18 07:44 Dose: 100 mls/hr Meropenem 500 mg/ Sodium (Chloride) 50 mls @ 100 mls/hr IV ONETIME ONE Stop: 06/06/18 06:59 Last Admin: 06/06/18 16:47 Dose: Not Given Ketamine HCl 50 mg/ Sodium (Chloride) 50 mls @ 15.6 mls/hr IV ASDIRECTED [facility] Linezolid (Zyvox) Confirm Administered Dose 300 mls @ as directed .ROUTE .[facility] ONE Stop: 06/06/18 07:38 Lactated Ringer's (Ringers, Lactated) Confirm Administered Dose 1,000 mls @ as directed .ROUTE .[facility] ONE Stop: 06/06/18 09:43 Linezolid (Zyvox) Confirm Administered Dose 300 mls @ as directed .ROUTE .[facility]- [facility] ONE Stop: 06/06/18 10:15 Dextrose/Lactated Ringer's (Dextrose 5%-Lactated Ringers) 1,000 mls @ 200 mls/ hr IV ASDIRECTED [facility] Last Admin: 06/07/18 05:22 Dose: 200 mls/hr Meropenem 500 mg/ Sodium (Chloride) 50 mls @ 100 mls/hr IV Q6H [facility] Stop: 06/07/18 20:29 Last Admin: 06/07/18 20:09 Dose: 100 mls/hr Lactated Ringer's (Ringers, Lactated) 1,000 mls @ 500 mls/hr IV ASDIRECTED [facility] Stop: 06/06/18 21:35 Lactated Ringer's (Ringers, Lactated) 500 mls @ 500 mls/hr IV ONETIME ONE Stop: 06/06/18 22:23 Last Admin: 06/06/18 21:48 Dose: 500 mls/hr Lactated Ringer's (Ringers, Lactated) 500 mls @ 500 mls/hr IV ASDIRECTED [facility] Stop: 06/07/18 02:49 Last Admin: 06/07/18 02:05 Dose: 500 mls/hr Ketamine HCl (Ketalar) 26 mg IV ASDIRECTED [facility] Levothyroxine Sodium 100 mcg/ (Levothyroxine Sodium 25 mcg) 125 mcg PO DAILY@ 0730 [facility] Linezolid (Zyvox) 1,200 mg IRR .STK-MED ONE Stop: 06/06/18 09:08 Last Admin: 06/06/18 09:07 Dose: 1,200 mg Meropenem (Merrem) Confirm Administered Dose 500 mg .ROUTE .STK-MED ONE Stop: 06/06/18 07:38 Last Admin: 06/06/18 09:06 Dose: 1,000 mg Meropenem (Merrem) Confirm Administered Dose 500 mg .ROUTE .STK-MED ONE Stop: 06/06/18 10:15 Mupirocin (Bactroban Oint) 0 gm TOP ONETIME ONE Stop: 06/06/18 11:01 Last Admin: 06/06/18 10:57 Dose: 1 applic Naloxone HCl (Narcan) 0.1 mg IV ASDIRECTED PRN PRN Reason: decreased respiratory rate Neostigmine Methylsulfate (Neostigmine) Confirm Administered Dose 5 mg .ROUTE .STK-MED ONE Stop: 06/06/18 07:15 Ondansetron HCl (Zofran) Confirm Administered Dose 4 mg .ROUTE .STK-MED ONE Stop: 06/06/18 07:15 Pantoprazole Sodium (Protonix) 40 mg PO ACBREAKFAST [place]RAD Pantoprazole Sodium (Protonix) 40 mg PO ONETIME ONE Stop: 06/06/18 21:31 Last Admin: 06/06/18 21:48 Dose: 40 mg Pantoprazole Sodium (Protonix) 40 mg PO ACBREAKFAST [place]RAD Pantoprazole Sodium (Protonix) 40 mg PO BEDTIME [facility] Last Admin: 06/07/18 20:11 Dose: 40 mg Propofol (Diprivan 20 Ml) Confirm Administered Dose 200 mg .ROUTE .STK-MED ONE Stop: 06/06/18 07:15 Rocuronium [place] (Zemuron) Confirm Administered Dose 100 mg .ROUTE .STK-MED ONE Stop: 06/06/18 07:17 Scopolamine (Transderm-Scop) 1.5 mg TOP Q72H [facility] Last Admin: 06/09/18 06:28 Dose: Not Given - Exam Wound/Incisions: Dressing Dry and Intact Quality Assessment: DVT Prophylaxis General: Alert, Oriented Neck: Supple Lungs: Clear to Auscultation, Normal Respiratory Effort Cardiovascular: Regular Rate, Regular Rhythm Extremities: No Pedal Edema, Normal Capillary Refill Neurological: No New Focal Deficit Psy/Mental Status: Normal Affect, Normal Mood - Problem List Review Problem List Initiated/Reviewed/Updated: Yes - My Orders Last 24 Hours: Active Orders 24 hr Category Date Time Status Consult to Bariatric Services [CONS] Routine Cons 06/09/18 07:17 Active Consult to Childcare Director [CONS] Routine Cons 06/09/18 07:21 Active Bisacodyl [Dulcolax] Med 06/09/18 09:00 Active 20 mg PO BID Docusate Sodium [Colace] Med 06/09/18 09:00 Active 100 mg PO BID Medication Orders Acetaminophen (Tylenol Extra Strength) 1,000 mg PO Q6H [facility] Last Admin: 06/09/18 07:40 Dose: 1,000 mg Admin: 06/09/18 01:02 Dose: 1,000 mg Admin: 06/08/18 19:51 Dose: 1,000 mg Admin: 06/08/18 14:20 Dose: 1,000 mg Admin: 06/08/18 07:22 Dose: 1,000 mg Admin: 06/08/18 02:21 Dose: 1,000 mg Admin: 06/07/18 20:10 Dose: 1,000 mg Admin: 06/07/18 14:18 Dose: 1,000 mg Admin: 06/07/18 09:31 Dose: 1,000 mg Admin: 06/07/18 02:05 Dose: 1,000 mg Admin: 06/06/18 20:08 Dose: 1,000 mg Admin: 06/06/18 16:23 Dose: 1,000 mg Bisacodyl (Dulcolax) 20 mg PO BID [facility] Last Admin: 06/09/18 08:15 Dose: Cyclobenzaprine HCl (Flexeril) 10 mg PO Q8H PRN PRN Reason: Muscle Spasm Diphenhydramine HCl (Benadryl) 25 mg PO Q4H PRN PRN Reason: Itching Last Admin: 06/09/18 03:35 Dose: 25 mg Admin: 06/08/18 22:49 Dose: 25 mg Admin: 06/08/18 11:23 Dose: 25 mg Admin: 06/08/18 07:15 Dose: 25 mg Admin: 06/07/18 23:14 Dose: 25 mg Admin: 06/07/18 19:17 Dose: 25 mg Admin: 06/07/18 15:05 Dose: 25 mg Admin: 06/07/18 11:05 Dose: 25 mg Docusate Sodium (Colace) 100 mg PO BID [facility] Last Admin: 06/09/18 08:15 Dose: Duloxetine HCl (Cymbalta) 120 mg PO BEDTIME [facility] Last Admin: 06/08/18 21:50 Dose: 120 mg Admin: 06/07/18 20:10 Dose: 120 mg Admin: 06/06/18 21:12 Dose: 120 mg Gabapentin (Neurontin) 100 mg PO BID [facility] Last Admin: 06/09/18 08:42 Dose: 100 mg Admin: 06/08/18 21:50 Dose: 100 mg Admin: 06/08/18 08:57 Dose: 100 mg Admin: 06/07/18 20:11 Dose: 100 mg Admin: 06/07/18 09:34 Dose: 100 mg Admin: 06/06/18 20:09 Dose: 100 mg Hydromorphone HCl (Dilaudid) 4 mg PO Q4H PRN PRN Reason: Pain Last Admin: 06/09/18 09:33 Dose: 4 mg Admin: 06/09/18 03:35 Dose: 4 mg Admin: 06/08/18 23:37 Dose: 4 mg Admin: 06/08/18 19:42 Dose: 4 mg Admin: 06/08/18 15:01 Dose: 4 mg Admin: 06/08/18 08:57 Dose: 4 mg Dextrose/Lactated Ringer's (Dextrose 5%-Lactated Ringers) 1,000 mls @ 100 mls/ hr IV ASDIRECTED [facility] Last Admin: 06/09/18 03:47 Dose: 100 mls/hr Infusion: 06/09/18 03:47 Dose: 100 mls/hr Admin: 06/08/18 18:11 Dose: 100 mls/hr Infusion: 06/08/18 18:11 Dose: 100 mls/hr Admin: 06/08/18 08:58 Dose: 100 mls/hr Infusion: 06/08/18 08:58 Dose: 100 mls/hr Admin: 06/07/18 23:55 Dose: 100 mls/hr Ibuprofen (Motrin) 600 mg PO QID [facility] Last Admin: 06/09/18 09:11 Dose: 600 mg Admin: 06/09/18 05:41 Dose: 600 mg Admin: 06/08/18 21:51 Dose: 600 mg Admin: 06/08/18 16:11 Dose: 600 mg Admin: 06/08/18 11:23 Dose: 600 mg Admin: 06/08/18 05:44 Dose: 600 mg Admin: 06/07/18 22:16 Dose: 600 mg Admin: 06/07/18 15:39 Dose: 600 mg Admin: 06/07/18 09:35 Dose: 600 mg Admin: 06/07/18 05:17 Dose: 600 mg Admin: 06/06/18 21:13 Dose: 600 mg Admin: 06/06/18 17:37 Dose: 600 mg Levothyroxine Sodium 100 mcg/ (Levothyroxine Sodium 25 mcg) 125 mcg PO BEDTIME [facility] Last Admin: 06/08/18 21:51 Dose: 125 mcg Admin: 06/07/18 20:11 Dose: 125 mcg Admin: 06/06/18 21:13 Dose: 125 mcg Meloxicam (Mobic) 7.5 mg PO DAILY@0800 [facility] Mupirocin (Bactroban Oint) 0 gm TOP DAILY [facility] Last Admin: 06/09/18 08:15 Dose: Not Given Admin: 06/08/18 08:56 Dose: 1 applic Admin: 06/07/18 09:40 Dose: 22 gm Scopolamine Patch (Check) 1 each TOP DAILY [facility] Last Admin: 06/09/18 08:34 Dose: Admin: 06/08/18 08:49 Dose: Admin: 06/07/18 09:34 Dose: Ondansetron HCl (Zofran) 4 mg IVPUSH Q4H PRN PRN Reason: Nausea/Vomiting Last Admin: 06/08/18 08:58 Dose: 4 mg Pantoprazole Sodium (Protonix) 40 mg PO BIDAC [facility] Last Admin: 06/09/18 07:40 Dose: 40 mg Admin: 06/08/18 16:12 Dose: 40 mg Admin: 06/08/18 07:21 Dose: 40 mg Zolpidem Tartrate (Ambien) 5 mg PO BEDTIME PRN PRN Reason: SLEEP Last Admin: 06/08/18 21:57 Dose: 5 mg - Assessment Assessment (Free Text/Narrative):: Operation: open repair recurrent incarcerated hernia with mesh panniculectomy excision of subfacial lipoma Post op diagnosis: hernia repair for recurrent incisional incarcerated hernia large abdominal pannus Subfacial lipoma left lateral abdominal wall (about 4 cm) Date of Surgery: 06/06/18 Surgeon: Malik Santos MD - Plan Plan (Free Text/Narrative):: 1. Consult to bariatric services 2. Consult to car builder 3. Start Dulcolax 20 mg PO BID 4. Start Colace 100 mg PO BID 5. Scopolamine 1.5 mg TOP every 72 hours
[2018-06-09] MEDS: DULoxetine 30 MG Cap PO SCH (20:12)
[2018-06-09] MEDS: Levothyroxine 100 MCG, Levothyroxine 25 MCG PO SCH ×2 (21:57)
[2018-06-09] MEDS: Zolpidem 5 MG Tab PO PRN (22:02)
[2018-06-09] MEDS: Cyclobenzaprine 10 MG Tab PO PRN (22:02)
[2018-06-10] MEDS: HYDROmorphone 2 MG Tab PO PRN ×5 (00:01→19:51)
[2018-06-10] MEDS: Acetaminophen 500 MG Tab PO SCH ×4 (02:45→20:02)
[2018-06-10] MEDS: Ibuprofen 600 MG Tab PO SCH ×5 (06:03→23:00)
[2018-06-10] MEDS: Cyclobenzaprine 10 MG Tab PO PRN (06:03)
--- NOTE | 2018-06-10 07:20 | PCM.SURGPN ---
- General Info Date of Service: 06/10/18 Date of Surgery/Procedure: 06/06/18 POD#: 4 Post-Op Diagnosis: hernia repair for recurrent incisional incarcerated hernia. large abdominal pannus. Subfacial lipoma left lateral abdominal wall (about 4 cm) Functional Status: Reports: Pain Controlled, Tolerating Diet, Ambulating, Urinating - Review of Systems Systems Review Comment:: 47 YO female Marcie Long is post op day 4 from a open repair recurrent incarcerated hernia with mesh panniculectomy and excision of subfacial lipoma. The patient's pain is well controlled on Dilaudid 4 mg PO every 4 hours and Tylenol 1000 mg PO every 6 hours. The patient is passing gas and having BMs. The patient is voiding. The patient is tolerating her diet. When asked if she is ready to be discharged, she requested one more day in the hospital. Her daughter is at home and will be helping her. She will place Bactroban on the ZAINAB drains and will have education on how to take care of herself at home. She will return to the clinic on for FU with Esteban. - Patient Data Vitals - Most Recent: Last Vital Signs Temp 36.9 C 06/10/18 02:46 Pulse 92 06/10/18 02:46 Resp 18 06/10/18 02:46 BP 144/75 H 06/10/18 02:46 Pulse Ox 91 L 06/10/18 02:46 Weight - Most Recent: 130.635 kg I&O - Last 24 Hours: Intake & Output 06/09/18 06/10/18 06/10/18 22:59 06:59 14:59 Intake Total 1200 500 Output Total 1025 840 Balance 175 -340 Med Orders - Current: Current Medications Acetaminophen (Tylenol Extra Strength) 1,000 mg PO Q6H [facility] Last Admin: 06/10/18 02:45 Dose: 1,000 mg Cyclobenzaprine HCl (Flexeril) 10 mg PO Q8H PRN PRN Reason: Muscle Spasm Last Admin: 06/10/18 06:03 Dose: 10 mg Diphenhydramine HCl (Benadryl) 25 mg PO Q4H PRN PRN Reason: Itching Last Admin: 06/09/18 18:19 Dose: 25 mg Duloxetine HCl (Cymbalta) 120 mg PO BEDTIME [facility] Last Admin: 06/09/18 20:12 Dose: 120 mg Gabapentin (Neurontin) 100 mg PO BID [facility] Last Admin: 06/09/18 20:13 Dose: 100 mg Hydromorphone HCl (Dilaudid) 4 mg PO Q4H PRN PRN Reason: Pain Last Admin: 06/10/18 04:58 Dose: 4 mg Dextrose/Lactated Ringer's (Dextrose 5%-Lactated Ringers) 1,000 mls @ 100 mls/ hr IV ASDIRECTED [facility] Last Admin: 06/09/18 03:47 Dose: 100 mls/hr Ibuprofen (Motrin) 600 mg PO QID [facility] Last Admin: 06/10/18 06:03 Dose: 600 mg Levothyroxine Sodium 100 mcg/ (Levothyroxine Sodium 25 mcg) 125 mcg PO BEDTIME [facility] Last Admin: 06/09/18 21:57 Dose: 125 mcg Meloxicam (Mobic) 7.5 mg PO DAILY@0800 [facility] Mupirocin (Bactroban Oint) 0 gm TOP DAILY [facility] Last Admin: 06/09/18 08:15 Dose: Not Given Scopolamine Patch (Check) 1 each TOP DAILY [facility] Last Admin: 06/09/18 08:34 Dose: Not Given Ondansetron HCl (Zofran) 4 mg IVPUSH Q4H PRN PRN Reason: Nausea/Vomiting Last Admin: 06/08/18 08:58 Dose: 4 mg Pantoprazole Sodium (Protonix) 40 mg PO BIDAC [facility] Last Admin: 06/09/18 15:30 Dose: 40 mg Zolpidem Tartrate (Ambien) 5 mg PO BEDTIME PRN PRN Reason: SLEEP Last Admin: 06/09/18 22:02 Dose: 5 mg Discontinued Medications Acetaminophen (Tylenol Extra Strength) 1,000 mg PO ONETIME ONE Stop: 06/06/18 06:31 Last Admin: 06/06/18 06:44 Dose: 1,000 mg Bisacodyl (Dulcolax) 20 mg PO BID [facility] Last Admin: 06/09/18 08:15 Dose: Not Given Calcium Carbonate/Glycine (Tums) 1,000 mg PO ONETIME ONE Stop: 06/08/18 03:31 Last Admin: 06/08/18 03:43 Dose: 1,000 mg Ropivacaine 60 ml/Dexamethasone 8 mg/Epinephrine HCl 0.4 mg/ Sodium Chloride 17.6 ml 0 ml NERVRT ASDIRECTED [facility] Last Admin: 06/06/18 08:58 Dose: 80 syringe Dexamethasone (Dexamethasone) Confirm Administered Dose 4 mg .ROUTE .[facility] ONE Stop: 06/06/18 07:15 Docusate Sodium (Colace) 100 mg PO BID [facility] Last Admin: 06/09/18 08:15 Dose: Not Given Duloxetine HCl (Cymbalta) 120 mg PO DAILY [facility] Fentanyl (Sublimaze) Confirm Administered Dose 250 mcg .ROUTE .[facility] ONE Stop: 06/06/18 09:30 Fentanyl Citrate (Fentanyl) Confirm Administered Dose [address] .[facility] ONE Stop: 06/06/18 07:18 Gabapentin (Neurontin) 100 mg PO ONETIME ONE Stop: 06/06/18 06:31 Last Admin: 06/06/18 06:44 Dose: 100 mg Glycopyrrolate (Robinul) Confirm Administered Dose [address] .[facility] ONE Stop: 06/06/18 07:15 Hydromorphone HCl (Dilaudid [employer]der [employer]ilermaker 15 Mg In Ns 30 Ml) 0 mg IV ASDIRECTED PRN; Protocol PRN Reason: Pain Last Admin: 06/07/18 19:47 Dose: 15 mg Dextrose/Lactated Ringer's (Dextrose 5%-Lactated Ringers) 1,000 mls @ 100 mls/ hr IV ASDIRECTED [facility] Last Admin: 06/06/18 07:44 Dose: 100 mls/hr Meropenem 500 mg/ Sodium (Chloride) 50 mls @ 100 mls/hr IV ONETIME ONE Stop: 06/06/18 06:59 Last Admin: 06/06/18 16:47 Dose: Not Given Ketamine HCl 50 mg/ Sodium (Chloride) 50 mls @ 15.6 mls/hr IV ASDIRECTED [facility] Linezolid (Zyvox) Confirm Administered Dose 300 mls @ as directed .ROUTE .[facility] ONE Stop: 06/06/18 07:38 Lactated Ringer's (Ringers, Lactated) Confirm Administered Dose 1,000 mls @ as directed .ROUTE .[facility] ONE Stop: 06/06/18 09:43 Linezolid (Zyvox) Confirm Administered Dose 300 mls @ as directed .ROUTE .[facility] ONE Stop: 06/06/18 10:15 Dextrose/Lactated Ringer's (Dextrose 5%-Lactated Ringers) 1,000 mls @ 200 mls/ hr IV ASDIRECTED [facility] Last Admin: 06/07/18 05:22 Dose: 200 mls/hr Meropenem 500 mg/ Sodium (Chloride) 50 mls @ 100 mls/hr IV Q6H [facility] Stop: 06/07/18 20:29 Last Admin: 06/07/18 20:09 Dose: 100 mls/hr Lactated Ringer's (Ringers, Lactated) 1,000 mls @ 500 mls/hr IV ASDIRECTED [facility] Stop: 06/06/18 21:35 Lactated Ringer's (Ringers, Lactated) 500 mls @ 500 mls/hr IV ONETIME ONE Stop: 06/06/18 22:23 Last Admin: 06/06/18 21:48 Dose: 500 mls/hr Lactated Ringer's (Ringers, Lactated) 500 mls @ 500 mls/hr IV ASDIRECTED [facility] Stop: 06/07/18 02:49 Last Admin: 06/07/18 02:05 Dose: 500 mls/hr Ketamine HCl (Ketalar) 26 mg IV ASDIRECTED [facility] Levothyroxine Sodium 100 mcg/ (Levothyroxine Sodium 25 mcg) 125 mcg PO DAILY@ 0730 [facility] Linezolid (Zyvox) 1,200 mg IRR .STK-[facility] ONE Stop: 06/06/18 09:08 Last Admin: 06/06/18 09:07 Dose: 1,200 mg Meropenem (Merrem) Confirm Administered Dose 500 mg .ROUTE .[facility] ONE Stop: 06/06/18 07:38 Last Admin: 06/06/18 09:06 Dose: 1,000 mg Meropenem (Merrem) Confirm Administered Dose 500 mg .ROUTE .[facility] ONE Stop: 06/06/18 10:15 Mupirocin (Bactroban Oint) 0 gm TOP ONETIME ONE Stop: 06/06/18 11:01 Last Admin: 06/06/18 10:57 Dose: 1 applic Naloxone HCl (Narcan) 0.1 mg IV ASDIRECTED PRN PRN Reason: decreased respiratory rate Neostigmine Methylsulfate (Neostigmine) Confirm Administered Dose 5 mg .ROUTE .[facility] ONE Stop: 06/06/18 07:15 Ondansetron HCl (Zofran) Confirm Administered Dose 4 mg .ROUTE .[facility] ONE Stop: 06/06/18 07:15 Pantoprazole Sodium (Protonix) 40 mg PO ACBREAKFAST [facility] Pantoprazole Sodium (Protonix) 40 mg PO ONETIME ONE Stop: 06/06/18 21:31 Last Admin: 06/06/18 21:48 Dose: 40 mg Pantoprazole Sodium (Protonix) 40 mg PO ACBREAKFAST [facility] Pantoprazole Sodium (Protonix) 40 mg PO BEDTIME [facility] Last Admin: 06/07/18 20:11 Dose: 40 mg Propofol (Diprivan 20 Ml) Confirm Administered Dose 200 mg .ROUTE .STK-[facility] ONE Stop: 06/06/18 07:15 Rocuronium [place] (Zemuron) Confirm Administered Dose 100 mg .ROUTE .STK-MED ONE Stop: 06/06/18 07:17 Scopolamine (Transderm-Scop) 1.5 mg TOP Q72H [facility] Last Admin: 06/09/18 06:28 Dose: Not Given - Exam General: Alert, Oriented Neck: Supple Lungs: Clear to Auscultation, Normal Respiratory Effort Cardiovascular: Regular Rate, Regular Rhythm Extremities: No Pedal Edema, Normal Capillary Refill Neurological: No New Focal Deficit Psy/Mental Status: Normal Affect, Normal Mood Physical Findings Comment:: ZAINAB drains #1, #2, #3, and #4 are 200, 245, 150, 170 mL respectively. Oral intake 2400 mL. 2 voids and 1 BM. Urine output 1500 mL. - Problem List Review Problem List Initiated/Reviewed/Updated: Yes - My Orders Last 24 Hours: Active Orders 24 hr Category Date Time Status Consult to Bariatric Services [CONS] Routine Cons 06/09/18 07:17 Active Consult to [facility] [CONS] Routine Cons 06/09/18 07:21 Active Medication Orders Acetaminophen (Tylenol Extra Strength) 1,000 mg PO Q6H [facility] Last Admin: 06/10/18 02:45 Dose: 1,000 mg Admin: 06/09/18 20:12 Dose: 1,000 mg Admin: 06/09/18 14:09 Dose: 1,000 mg Admin: 06/09/18 07:40 Dose: 1,000 mg Admin: 06/09/18 01:02 Dose: 1,000 mg Admin: 06/08/18 19:51 Dose: 1,000 mg Admin: 06/08/18 14:20 Dose: 1,000 mg Admin: 06/08/18 07:22 Dose: 1,000 mg Admin: 06/08/18 02:21 Dose: 1,000 mg Admin: 06/07/18 20:10 Dose: 1,000 mg Admin: 06/07/18 14:18 Dose: 1,000 mg Admin: 06/07/18 09:31 Dose: 1,000 mg Admin: 06/07/18 02:05 Dose: 1,000 mg Admin: 06/06/18 20:08 Dose: 1,000 mg Admin: 06/06/18 16:23 Dose: 1,000 mg Cyclobenzaprine HCl (Flexeril) 10 mg PO Q8H PRN PRN Reason: Muscle Spasm Last Admin: 06/10/18 06:03 Dose: 10 mg Admin: 06/09/18 22:02 Dose: 10 mg Diphenhydramine HCl (Benadryl) 25 mg PO Q4H PRN PRN Reason: Itching Last Admin: 06/09/18 18:19 Dose: 25 mg Admin: 06/09/18 03:35 Dose: 25 mg Admin: 06/08/18 22:49 Dose: 25 mg Admin: 06/08/18 11:23 Dose: 25 mg Admin: 06/08/18 07:15 Dose: 25 mg Admin: 06/07/18 23:14 Dose: 25 mg Admin: 06/07/18 19:17 Dose: 25 mg Admin: 06/07/18 15:05 Dose: 25 mg Admin: 06/07/18 11:05 Dose: 25 mg Duloxetine HCl (Cymbalta) 120 mg PO BEDTIME [facility] Last Admin: 06/09/18 20:12 Dose: 120 mg Admin: 06/08/18 21:50 Dose: 120 mg Admin: 06/07/18 20:10 Dose: 120 mg Admin: 06/06/18 21:12 Dose: 120 mg Gabapentin (Neurontin) 100 mg PO BID [facility] Last Admin: 06/09/18 20:13 Dose: 100 mg Admin: 06/09/18 08:42 Dose: 100 mg Admin: 06/08/18 21:50 Dose: 100 mg Admin: 06/08/18 08:57 Dose: 100 mg Admin: 06/07/18 20:11 Dose: 100 mg Admin: 06/07/18 09:34 Dose: 100 mg Admin: 06/06/18 20:09 Dose: 100 mg Hydromorphone HCl (Dilaudid) 4 mg PO Q4H PRN PRN Reason: Pain Last Admin: 06/10/18 04:58 Dose: 4 mg Admin: 06/10/18 00:01 Dose: 4 mg Admin: 06/09/18 20:11 Dose: 4 mg Admin: 06/09/18 14:10 Dose: 4 mg Admin: 06/09/18 09:33 Dose: 4 mg Admin: 06/09/18 03:35 Dose: 4 mg Admin: 06/08/18 23:37 Dose: 4 mg Admin: 06/08/18 19:42 Dose: 4 mg Admin: 06/08/18 15:01 Dose: 4 mg Admin: 06/08/18 08:57 Dose: 4 mg Dextrose/Lactated Ringer's (Dextrose 5%-Lactated Ringers) 1,000 mls @ 100 mls/ hr IV ASDIRECTED [facility] Last Admin: 06/09/18 03:47 Dose: 100 mls/hr Infusion: 06/09/18 03:47 Dose: 100 mls/hr Admin: 06/08/18 18:11 Dose: 100 mls/hr Infusion: 06/08/18 18:11 Dose: 100 mls/hr Admin: 06/08/18 08:58 Dose: 100 mls/hr Infusion: 06/08/18 08:58 Dose: 100 mls/hr Admin: 06/07/18 23:55 Dose: 100 mls/hr Ibuprofen (Motrin) 600 mg PO QID [facility] Last Admin: 06/10/18 06:03 Dose: 600 mg Admin: 06/09/18 21:58 Dose: 600 mg Admin: 06/09/18 15:30 Dose: 600 mg Admin: 06/09/18 09:11 Dose: 600 mg Admin: 06/09/18 05:41 Dose: 600 mg Admin: 06/08/18 21:51 Dose: 600 mg Admin: 06/08/18 16:11 Dose: 600 mg Admin: 06/08/18 11:23 Dose: 600 mg Admin: 06/08/18 05:44 Dose: 600 mg Admin: 06/07/18 22:16 Dose: 600 mg Admin: 06/07/18 15:39 Dose: 600 mg Admin: 06/07/18 09:35 Dose: 600 mg Admin: 06/07/18 05:17 Dose: 600 mg Admin: 06/06/18 21:13 Dose: 600 mg Admin: 06/06/18 17:37 Dose: 600 mg Levothyroxine Sodium 100 mcg/ (Levothyroxine Sodium 25 mcg) 125 mcg PO BEDTIME [facility] Last Admin: 06/09/18 21:57 Dose: 125 mcg Admin: 06/08/18 21:51 Dose: 125 mcg Admin: 06/07/18 20:11 Dose: 125 mcg Admin: 06/06/18 21:13 Dose: 125 mcg Meloxicam (Mobic) 7.5 mg PO DAILY@0800 [facility] Mupirocin (Bactroban Oint) 0 gm TOP DAILY [facility] Last Admin: 06/09/18 08:15 Dose: Not Given Admin: 06/08/18 08:56 Dose: 1 applic Admin: 06/07/18 09:40 Dose: 22 gm Scopolamine Patch (Check) 1 each TOP DAILY [facility] Last Admin: 06/09/18 08:34 Dose: Admin: 06/08/18 08:49 Dose: Admin: 06/07/18 09:34 Dose: Ondansetron HCl (Zofran) 4 mg IVPUSH Q4H PRN PRN Reason: Nausea/Vomiting Last Admin: 06/08/18 08:58 Dose: 4 mg Pantoprazole Sodium (Protonix) 40 mg PO BIDAC [facility] Last Admin: 06/09/18 15:30 Dose: 40 mg Admin: 06/09/18 07:40 Dose: 40 mg Admin: 06/08/18 16:12 Dose: 40 mg Admin: 06/08/18 07:21 Dose: 40 mg Zolpidem Tartrate (Ambien) 5 mg PO BEDTIME PRN PRN Reason: SLEEP Last Admin: 06/09/18 22:02 Dose: 5 mg Admin: 06/08/18 21:57 Dose: 5 mg - Assessment Assessment (Free Text/Narrative):: Operation: open repair recurrent incarcerated hernia with mesh panniculectomy excision of subfacial lipoma Post op diagnosis: hernia repair for recurrent incisional incarcerated hernia large abdominal pannus Subfacial lipoma left lateral abdominal wall (about 4 cm) Date of Surgery: 06/06/18 Surgeon: Malik Santos MD - Plan Plan (Free Text/Narrative):: 1. The patient will be discharged tomorrow. 2. The patient will be educated on how to place Bactroban on her ZAINAB drains when she is discharged. 3. Continue Dulcolax 20 mg PO BID and Colace 100 mg PO BID to keep bowels moving. 4. The patient will return to the clinic on for FU with Esteban. At that time, 2 ZAINAB drains may be removed but the jade may be left in place.
[2018-06-10] MEDS: Pantoprazole 40 MG Tab.CR PO SCH ×2 (07:23→17:26)
[2018-06-10] MEDS ORDERED: HYDROmorphone 2 MG Tab PO PRN (07:35)
[2018-06-10] MEDS: Mupirocin Oint 22 GM Tube TOP SCH (08:24)
[2018-06-10] MEDS: SCOPOLAMINE PATCH CHECK TOP SCH (08:25)
[2018-06-10] MEDS: Gabapentin 100 MG Cap PO SCH ×2 (08:25→20:03)
[2018-06-10] MEDS: Levothyroxine 100 MCG, Levothyroxine 25 MCG PO SCH ×2 (20:03)
[2018-06-10] MEDS: DULoxetine 30 MG Cap PO SCH (20:03)
[2018-06-10] MEDS: Zolpidem 5 MG Tab PO PRN (23:02)
[2018-06-11] MEDS: HYDROmorphone 2 MG Tab PO PRN ×3 (01:07→11:00)
[2018-06-11] MEDS: Acetaminophen 500 MG Tab PO SCH ×2 (01:07→07:24)
[2018-06-11] MEDS: diphenhydrAMINE 25 MG Cap PO PRN (02:31)
[2018-06-11] MEDS: Cyclobenzaprine 10 MG Tab PO PRN (02:31)
[2018-06-11] MEDS: Ibuprofen 600 MG Tab PO SCH ×2 (05:15→09:06)
[2018-06-11] MEDS: Pantoprazole 40 MG Tab.CR PO SCH (07:24)
[2018-06-11] MEDS: SCOPOLAMINE PATCH CHECK TOP SCH (09:05)
[2018-06-11] MEDS: Mupirocin Oint 22 GM Tube TOP SCH (09:05)
[2018-06-11] MEDS: Gabapentin 100 MG Cap PO SCH (09:05)
--- NOTE | 2018-06-11 10:46 | DISCH ---
FINAL DIAGNOSES: 1. Recurrent incarcerated incisional hernia. 2. Large abdominal pannus with chronic panniculitis. 3. 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 4. Status post multiple bariatric procedures with persistent morbid obesity. 5. History of depression. 6. History of gastroesophageal reflux disease. 7. History of treated hypothyroidism. 8. History of iron deficiency. 9. History of fibromyalgia. 10.History of osteoarthritis of knees, status post right knee surgery. OPERATIVE PROCEDURES: Done on 06/06/2018, open repair of recurrent incarcerated incisional hernia with mesh, panniculectomy, and excision of subfascial lipoma. SUMMARY: This is a 47-year-old female presenting with a large debilitating chronically inflamed pannus along with a large incisional hernia. The incisional hernia with standing is up to roughly the size of a basketball. On the day of admission, the patient underwent open repair of the hernia with mesh along with panniculectomy. The panniculectomy weight was around 13 pounds and 12 ounces, and postoperatively, the patient has done well. At this point, she is quite a bit more mobile. She will be discharged home with [address] to drain the fluid underneath the panniculectomy site, and she will be following up with Saritha Silveira at [facility] on 06/16/2018. At that time, we will perhaps remove 1 drain on each side and jade probably on each side left in. She is instructed to put Bactroban ointment around the ZAINAB drains daily. Otherwise, she will be continuing her home medications plus Dilaudid 6 mg p.o. q.4 hours p.r.n. pain, #40 and then Flexeril 10 mg p.o. t.i.d. p.r.n. muscle spasm, #30 with refill x1. She is also receiving Tylenol, gabapentin, and Motrin for her pain control. The patient probably will be scheduled for proximal gastrectomy with Soo-en-Y reconstruction perhaps in the week after the next appointment. Then, it will be decided at that time if any clinically.
--- NOTE | 2018-06-11 12:18 | PN ---
DATE OF SERVICE: 06/10/2018 The patient is still somewhat immobile with a large operation and panniculectomy. The pain control is still a little bit marginal. We will keep her 1 more day at this point and proceed with increasing the Dilaudid dose to 6 mg q.4 hours p.r.n. She generally takes [place] at home chronically, so probably has some degree of narcotic intolerance postop, requiring some higher doses. Malik Santos MD /[id number]
--- NOTE | 2018-06-12 12:50 | OR ---
DATE OF PROCEDURE: 06/06/2018 PREOPERATIVE DIAGNOSES: 1. Recurrent incarcerated incisional hernia. 2. Large abdominal pannus associated with chronic panniculitis and orthopedic complications. POSTOPERATIVE DIAGNOSES: 1. Recurrent incarcerated incisional hernia. 2. Large abdominal pannus associated with chronic panniculitis and orthopedic complications. 3. Subfascial lipoma, left lateral abdominal wall. PROCEDURES: 1. Open repair of recurrent incarcerated incisional hernia with mesh (50811, 77598). 2. Panniculectomy (58623). 3. Excision of subfascial lipoma, left lateral abdominal wall (70425). 4. Placement of Vicryl mesh to displace viscera from pelvic and abdominal wall to limit postoperative adhesion formation (28220). ANESTHESIA: General. SUPPLY CHAIN TECHNICIAN: LUIS Wade INDICATIONS FOR PROCEDURE: This is a 47-year-old presenting with persistent morbid obesity and large abdominal pannus. This is causing quite a bit of problems with her balance and some back problems, as well as chronic panniculitis. She also has a large recurrent incisional hernia, which appears to be recurring below an area of previous mesh repair. When standing, the hernia appears to be roughly the size of a basketball, i.e. is quite large. Plan is to proceed with a panniculectomy and repair of the incisional hernia with mesh. Potential risks of the procedure including bleeding, infection, injury to underlying viscera, problems with the hernia recurring, or the mesh becoming infected were all reviewed along with the remote possibility of cardiopulmonary, septic, or hemorrhagic complications leading to , and the patient wishes to proceed. DETAILS OF PROCEDURE: The patient was taken to the operating room, placed in a supine position. After general endotracheal anesthesia was induced, a Beauchamp catheter was inserted and the abdomen prepped and draped. Initially, a transversely-oriented wide elliptical incision running above the hips and across the central abdomen was made and carried down through the skin and subcutaneous tissue and carried down to the level of the fascia. The pannus was then reflected off the fascia toward the midline. The bulk of the hernia was encountered beginning fairly laterally to the right of the midline, then extended more or less just beyond the midline toward the left side. The hernia sac was then opened, and then some incarcerated components containing omentum and some large and small bowel were dissected away from the sac and returned to the peritoneal cavity. The sac was then excised en bloc with the pannus, dividing the peritoneal sac flush with the underlying fascial edges and this specimen then delivered from the field. At this point, the hernia was mapped out. A Ventralight ST mesh with an oval configuration and dimensions of 19.6 x 24.6 cm was selected. At 5 cm intervals around its circumference on the polypropylene side of the mesh, 2-0 Vicryl sutures were placed, and the mesh was then soaked in antibiotic-containing saline solution. With the panniculectomy overlying it, no additional skin punctures needed to be placed, and beginning on the lower end of the opening, and more or less in the suprapubic area, the urinary bladder was dissected back away from the fascia and the mesh then began to be affixed with pulling the sutures through the abdominal wall with suture passer, more or less orienting the mesh. Once the lower half of the mesh was placed, to minimize adhesion formation between the mesh as well as the pelvic and abdominal herron in general and the underlying viscera, a 12-inch Vicryl mesh was placed. This was placed down behind the urinary bladder and then up against the abdominal wall and pelvic herron. The remaining sutures were then pulled up, thus affixing the mesh in position. The mesh on its underside was then additionally tacked after the sutures had been tied with titanium tacking screws, and at that point, no further significant problems were noted. The midline fascia was then approximated with a #2 Vicryl stitch. Of note, during the course of the panniculectomy, a subfascial lipoma in the left lateral abdominal wall was identified. This was below Toshia's fascia and measured 5.2 cm in maximal dimension. Four [place] drains were then placed through stab wounds above the main incision and the tube placed along each side of the bed of the panniculectomy. The panniculectomy was then closed with a running subdermal stitch of 2-0 Vicryl stitch and then jade for the skin. Drains were affixed with some 2-0 Vicryl stitch as well, and the patient taken to the recovery room in satisfactory condition. There were no evident complications. Malik Santos MD /[id number]
== END 2018-06-11 13:05 | disposition home or self-care (01) | DRG 354 ==
LOC: JP.SDSSCHI 06:20 → JP.SDS 06:20 → EDSTATUS 07:30 → JP.MS 11:30
PROVIDERS: ADMIT Surgery; ATTEND Surgery
PROC: 0WUF0JZ Supplement Abdominal Wall with Synthetic Substitute, Open Approach (ICD-10-PCS; principal; 2018-06-06)
PROC: 0JB80ZZ Excision of Abdomen Subcutaneous Tissue and Fascia, Open Approach (ICD-10-PCS; principal; 2018-06-06)
PROC: 0HB7XZZ Excision of Abdomen Skin, External Approach (ICD-10-PCS; principal; 2018-06-06)
DX: K43.0 Incisional hernia with obstruction, without gangrene (principal); Z68.43 Body mass index [BMI] 50.0-59.9, adult; M79.3 Panniculitis, unspecified; E66.01 Morbid (severe) obesity due to excess calories; F32.9 Major depressive disorder, single episode, unspecified; K21.9 Gastro-esophageal reflux disease without esophagitis; D17.1 Benign lipomatous neoplasm of skin and subcutaneous tissue of trunk; L29.9 Pruritus, unspecified; E03.9 Hypothyroidism, unspecified; E61.1 Iron deficiency; M79.7 Fibromyalgia; M17.12 Unilateral primary osteoarthritis, left knee; Z90.49 Acquired absence of other specified parts of digestive tract; Z98.891 History of uterine scar from previous surgery; Z79.899 Other long term (current) drug therapy; Z88.6 Allergy status to analgesic agent; Z88.1 Allergy status to other antibiotic agents; Z98.84 Bariatric surgery status; Z88.8 Allergy status to other drugs, medicaments and biological substances; Z87.891 Personal history of nicotine dependence; Z97.5 Presence of (intrauterine) contraceptive device
CPT/HCPCS: 81025; 94762; 97110-GP; 97162-GP; 97530-GP; 97535-GP; A9270-GY; C1781; J0171; J1100; J1170; J2020; J2185; J2405; J2704; J2710; J2795; J3010; J3490; J7042; J7050; J7120

== ENCOUNTER 2018-06-29 08:52 | Inpatient (IN) | payer MEDICAID ==
[2018-06-29] MEDS ORDERED: Ondansetron 4 MG Tab.DIS PO PRN (09:22)
[2018-06-29] MEDS ORDERED: LORazepam 0.5 MG Tab PO PRN (09:27)
[2018-06-29] MEDS ORDERED: Non-Formulary Medication 1 Each (Meclizine Hcl [Meclizine Hcl] 25 MG) PO SCH (09:30)
[2018-06-29] MEDS ORDERED: LEVONORGESTREL IY SCH (09:30)
[2018-06-29] MEDS: Dextrose 5%-Lactated Ringers 1,000 ML IV SCH ×2 (09:38→18:47)
[2018-06-29] MEDS: Pantoprazole 40 MG Vial IVPUSH SCH (10:54)
[2018-06-29] MEDS: Ondansetron 4 MG/2 ML SDV IVPUSH PRN ×3 (11:16→20:58)
--- NOTE | 2018-06-29 11:49 | PCM.HP ---
H&P History of Present Illness - General Date of Service: 06/29/18 Source of Information: Patient, EMS Notes Reviewed, Provider History Limitations: Reports: No Limitations - History of Present Illness Initial Comments - Free Text/Narative: Marcie had a Hernia Repair and Panniculectomy on 06/06/18 - Malik Santos MD. Hospital course was uncomplicated. Went to ED once after discharge before first post op appointment for pain management and redness around the ZAINAB drains. Started on Cephalexin and given additional [place] until Dilaudid was prior authorized. Marcie was doing well until 06/27/18 when she reported a fever of 101 degrees, had no appetite reported nausea and had abdominal pain not from her incision but in her lower abdomen. Reports pain as a dull ache, burning and pressure like pain. She went to ED at [facility] early AM and was transferred by ambulance to [facility]. CT Scan showed: Fluid collection along the ventral peritoneum deep to the hernia mesh repair has significantly increased in size with both nondependent and dependent air concerning for developing abscess. given the nondependent air in this collection, communication with bowel is of consideration. Stranding in the ventral adipose. Onset of Symptoms: Reports: Gradual Duration of Symptoms: Reports: Day(s): (2 days ago.) Location: Reports: Abdomen Quality: Reports: Ache, Burning, Pressure Severity: Mild Improves with: Reports: Medication (has been taking Dilaudid 6 mg every 4 hours or [place] 10 mg every 4 hours ) Worsens with: Reports: Eating (states hasn't eaten for 2 days but has been able to drink fluids. ), Movement Associated Symptoms: Reports: Loss of Appetite, Other (nausea but no vomiting) Abdomen Pain Score (Numeric/FACES): 8 - Related Data Allergies/Adverse Reactions: Allergies Allergy/AdvReac Type Severity Reaction Status Date / Time adhesive tape Allergy Rash Verified 05/10/18 10:44 amoxicillin Allergy Hives Verified 05/10/18 10:44 morphine AdvReac Nausea and Verified 05/11/18 15:25 Vomiting Home Medications: Home Meds Acetaminophen/HYDROcodone [[place] 325-5 MG] 1 - 2 tab PO Q6H PRN 05/10/18 [ History] DULoxetine [Cymbalta] 120 mg PO BEDTIME 05/10/18 [History] Gabapentin [Neurontin] 100 mg PO BID 05/10/18 [History] Ibuprofen 800 mg PO Q6HR PRN 05/10/18 [History] LORazepam [Ativan] 0.5 mg PO DAILY PRN 05/10/18 [History] Levothyroxine Sodium [Synthroid] 125 mcg PO BEDTIME 05/10/18 [History] Meloxicam [Mobic] 7.5 mg PO DAILY 05/10/18 [History] Omeprazole Magnesium [Prilosec Otc] 40 mg PO BEDTIME 05/10/18 [History] Ondansetron [Zofran ODT] 4 mg PO Q6H PRN 05/10/18 [History] Zolpidem [Ambien] 5 mg PO BEDTIME 05/10/18 [History] Calcium Carbonate/Vitamin D3 [Calcium 500 + Vit D 400] 1 tab PO BID 06/05/18 [ History] Cyanocobalamin (Vitamin B-12) [Vitamin B-12] 1,000 mcg SL DAILY 06/05/18 [ History] Levonorgestrel [Kyleena] 1 each IY ASDIRECTED 06/05/18 [History] Nystatin [Nystatin Oint] 1 dose TOP ASDIRECTED PRN 06/05/18 [History] Pediatric Multivit #17/Iron [Children's Chewables] 1 tab PO BID 06/05/18 [ History] Vitamin B Complex [B Complex] 1 tab PO DAILY 06/05/18 [History] Past Medical History HEENT History: Reports: Impaired Vision Other HEENT History: wears glasses Gastrointestinal History: Reports: Chronic Diarrhea, GERD 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: , Spontaneous Musculoskeletal History: Reports: Arthritis, Back Pain, Chronic, Fibromyalgia, Neck Pain, Chronic, RA Neurological History: Reports: Vertigo Psychiatric History: Reports: Anxiety, Depression Endocrine/Metabolic History: Reports: Hypothyroidism, Obesity/BMI 30+ Hematologic History: Reports: B12 Deficiency - Infectious Disease History Infectious Disease History: Reports: Chicken Pox, Shingles - Past Surgical History HEENT Surgical History: Reports: Oral Surgery GI Surgical History: Reports: Bariatric Procedure, Cholecystectomy, Colonoscopy , EGD, Hernia, Abdominal Female Surgical History: Reports: Section, D&C Endocrine Surgical History: Reports: None Neurological Surgical History: Reports: None Musculoskeletal Surgical History: Reports: Arthroscopic Knee Social & Family History - Family History Family Medical History: Noncontributory HEENT: Reports: Cataract Cardiac: Reports: CAD Musculoskeletal: Reports: Arthritis, Back pain, Chronic, Neck Pain, Chronic Psychiatric: Reports: Anxiety, Depression Endocrine/Metabolic: Reports: Diabetes, type II, Hypothyroidism Oncologic: Reports: Prostate - Tobacco Use Smoking Status *Q: Former Smoker Years of Tobacco use: 30 Packs/Tins Daily: 1 Used Tobacco, but Quit: Yes Month/Year Tobacco Last Used: Mar 2018 - Caffeine Use Caffeine Use: Reports: Coffee, Soda - Recreational Drug Use Recreational Drug Use: No H&P Review of Systems - Review of Systems: Review Of Systems: See Below General: Reports: Weakness HEENT: Reports: No Symptoms Pulmonary: Reports: No Symptoms Cardiovascular: Reports: No Symptoms Gastrointestinal: Reports: Abdominal Pain, Diarrhea (2 - 3 stools a day - C Diff was negative in ED today ), Decreased Appetite Genitourinary: Reports: No Symptoms Musculoskeletal: Reports: Back Pain (chronic) Skin: Reports: No Symptoms Psychiatric: Reports: Depression Neurological: Reports: No Symptoms Hematologic/Lymphatic: Reports: No Symptoms Immunologic: Reports: No Symptoms Exam - Exam Exam: See Below - Vital Signs Vital Signs: Last Vital Signs Temp 98.3 F 06/29/18 08:52 Pulse 79 06/29/18 08:52 Resp 18 06/29/18 08:52 BP 117/83 06/29/18 08:52 Pulse Ox 96 06/29/18 08:52 Weight: 251 lb - Exam Quality Assessment: DVT Prophylaxis General: Alert, Oriented, Cooperative HEENT: PERRLA, Conjunctiva Clear Neck: Supple, Trachea Midline Lungs: Clear to Auscultation, Normal Respiratory Effort Cardiovascular: Regular Rate, Regular Rhythm GI/Abdominal Exam: Soft, Non-Tender, No Distention, Other (2 ZAINAB drains intact. Skin surrounding ZAINAB drains slightly red. Steri strips are mostly intact - some are falling off. Incision is healing well. ) (Female) Exam: Deferred Rectal (Female) Exam: Deferred Back Exam: Normal Inspection, Full Range of Motion Extremities: Normal Inspection, Normal Range of Motion Skin: Warm, Dry, Intact Neurological: Cranial Nerves Intact, Reflexes Equal Bilateral Neuro Extensive - Mental Status: Alert, Oriented x3, Normal Mood/Affect Neuro Extensive - Motor, Sensory, Reflexes: CN II-XII Intact, Normal Gait, Normal Reflexes Psychiatric: Alert, Normal Affect, Normal Mood - Problem List (1) Status post panniculectomy SNOMED Code(s): 663778481, 335538118, 832415166 ICD Code: Z98.890 - OTHER SPECIFIED POSTPROCEDURAL STATES Status: Acute Current Visit: No Onset Date: ~06/06/18 (2) Recurrent abdominal hernia SNOMED Code(s): 63922861, 54855732 ICD Code: K46.9 - UNSPECIFIED ABDOMINAL HERNIA WITHOUT OBSTRUCTION OR GANGRENE Status: Acute Current Visit: No (3) Status post hernia repair SNOMED Code(s): 22525244443325, 88674307404889 ICD Code: Z98.890 - OTHER SPECIFIED POSTPROCEDURAL STATES; Z87.19 - PERSONAL HISTORY OF OTHER DISEASES OF THE DIGESTIVE SYSTEM Status: Acute Current Visit: No Onset Date: ~06/06/18 (4) Bariatric surgery status SNOMED Code(s): 947588507, 742539931, 087926530 ICD Code: Z98.84 - BARIATRIC SURGERY STATUS Status: Chronic Current Visit : No (5) Depressive disorder SNOMED Code(s): 63494824 ICD Code: F32.9 - MAJOR DEPRESSIVE DISORDER, SINGLE EPISODE, UNSPECIFIED Status: Chronic Current Visit: No (6) Tobacco abuse SNOMED Code(s): 950293760 ICD Code: Z72.0 - TOBACCO USE Status: Chronic Current Visit: No (7) Fibromyalgia SNOMED Code(s): 744758977 ICD Code: M79.7 - FIBROMYALGIA Status: Chronic Current Visit: No Problem List Initiated/Reviewed/Updated: Yes Orders Last 24hrs: Active Orders 24 hr Category Date Time Status Antiembolic Devices [RC] .Routine Care 06/29/18 09:22 Active May Shower [RC] ASDIRECTED Care 06/29/18 09:22 Active Consult to Bariatric Services [CONS] Routine Cons 06/29/18 11:25 Ordered NPO Now [Nothing per Oral Now Diet] [DIET] Diet 06/29/18 Lunch Active Abdomen Ltd [US] Routine Exams 06/29/18 10:10 Ordered DULoxetine [Cymbalta] Med 06/29/18 21:00 Active 120 mg PO BEDTIME Dextrose 5%-Lactated Ringers 1,000 ml Med 06/29/18 09:30 Active IV ASDIRECTED Gabapentin [Neurontin] Med 06/29/18 21:00 Active 100 mg PO BID HYDROmorphone [Dilaudid] Med 06/29/18 11:28 Ordered 1 mg IVPUSH Q4H PRN LORazepam [Ativan] Med 06/29/18 09:27 Active 0.5 mg PO DAILY PRN Levonorgestrel [Kyleena] Med 06/29/18 09:30 Active 1 each IY ASDIRECTED Levothyroxine [Synthroid] Med 06/29/18 21:00 Active 125 mcg PO BEDTIME Ondansetron [Zofran] Med 06/29/18 09:30 Active 4 mg IVPUSH Q4H PRN Pantoprazole [ProTONIX IV] Med 06/29/18 10:00 Active 40 mg IVPUSH Q24H SCD [Sequential Compression Device] [OM.PC] Routine Oth 06/29/18 09:22 Ordered Medication Orders Duloxetine HCl (Cymbalta) 120 mg PO BEDTIME CONRAD Gabapentin (Neurontin) 100 mg PO BID CONRAD Hydromorphone HCl (Dilaudid) 1 mg IVPUSH Q4H PRN PRN Reason: Pain Dextrose/Lactated Ringer's (Dextrose 5%-Lactated Ringers) 1,000 mls @ 100 mls/ hr IV ASDIRECTED CONRAD Last Admin: 06/29/18 09:38 Dose: 100 mls/hr Levothyroxine Sodium 100 mcg/ (Levothyroxine Sodium 25 mcg) 125 mcg PO BEDTIME CONRAD Lorazepam (Ativan) 0.5 mg PO DAILY PRN PRN Reason: Anxiety Non-Formulary Medication (Levonorgestrel [Kyleena]) 1 each IY ASDIRECTED CONRAD Ondansetron HCl (Zofran) 4 mg IVPUSH Q4H PRN PRN Reason: Nausea/Vomiting Last Admin: 06/29/18 11:16 Dose: 4 mg Pantoprazole Sodium (Protonix Iv) 40 mg IVPUSH Q24H CONRAD Last Admin: 06/29/18 10:54 Dose: 40 mg Assessment/Plan Comment:: Assessment: Possible intra abdominal abscess - fluid collection Abdominal Pain SP Panniculectomy and Hernia Repair 06/06/18 Hypothyroidism SP 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 See copy of orders per EMR. Saritha Proctor
[2018-06-29] MEDS: HYDROmorphone 1 MG/ML Syringe IVPUSH PRN ×3 (12:53→21:01)
[2018-06-29] MEDS: Acetaminophen 325 MG Tab PO PRN (19:38)
[2018-06-29] MEDS: Gabapentin 100 MG Cap PO SCH (20:59)
[2018-06-29] MEDS ORDERED: Levothyroxine 100 MCG, Levothyroxine 25 MCG PO SCH ×2 (21:00)
[2018-06-29] MEDS ORDERED: DULoxetine 30 MG Cap PO SCH (21:00)
[2018-06-30] MEDS: Ondansetron 4 MG/2 ML SDV IVPUSH PRN (04:30)
[2018-06-30] MEDS: HYDROmorphone 1 MG/ML Syringe IVPUSH PRN (04:30)
[2018-06-30] MEDS: Dextrose 5%-Lactated Ringers 1,000 ML IV SCH (04:34)
[2018-06-30] MEDS ORDERED: fentaNYL 100 MCG/2 ML SDV ONE (07:12)
[2018-06-30] MEDS ORDERED: Midazolam 1 MG/ML 2 ML SDV ONE (07:12)
[2018-06-30] MEDS ORDERED: Propofol 200 MG/20 ML SDV ONE ×2 (07:12→07:47)
[2018-06-30] MEDS ORDERED: ceFAZolin 2 GM in Premix Bag 1 BAG IV ONE (08:00)
[2018-06-30] MEDS ORDERED: Ropivacaine 57 ML, Dexamethasone 8 MG, EPINEPHrine 0.4 MG, Sodium Chloride 0.9% 20.6 ML NERVRT SCH ×4 (08:00)
[2018-06-30] MEDS ORDERED: Lidocaine 1% 2 ML ONE (08:36)
[2018-06-30] MEDS ORDERED: hydrOXYzine HCl 100 MG/2 ML SDV IM ONE (08:48)
--- NOTE | 2018-06-30 08:49 | PN ---
DATE OF SERVICE: 06/30/2018 Marcie reports her pain is controlled. She has been using Dilaudid 1 mg IV. Most of her pain now she states is in the right lower quadrant. She has been up ambulating. N.p.o. since midnight. Oral intake was 1090. Urine output was 1065. She continues to have those two ZAINAB drains from her panniculectomy. ZAINAB drain 155 mL of a light yellow drainage and ZAINAB drain #4, 10 mL of the same colored drainage. Afebrile. No nausea, vomiting. REVIEW OF SYSTEMS: Remainder of review of systems negative for any pertinent positives and negatives. OBJECTIVE: GENERAL: Marcie Long is a 47-year-old female, alert and orientated, emotional. VITAL SIGNS: Temperature 97, pulse 68, respirations 16, blood pressure is 97/68. HEENT: Negative. NECK: Supple. HEART: Regular rate and rhythm. LUNGS: Clear. ABDOMEN: Incision from panniculectomy is healing well. Panniculectomy incision intact. There is no redness, tenderness. Open areas ZAINAB drains intact. There is some redness noted around the skin site. Most of her tenderness is in the right low abdominal quadrant. EXTREMITIES: Without peripheral edema. NEUROLOGIC: Intact. PSYCHIATRIC: Mood and affect, the patient states she is anxious and worried about surgery. ASSESSMENT: 1. Fluid collection along the ventral peritoneum deep to the hernia mesh, concerning for abscess. 2. Panniculectomy 06/06/2018 with hernia repair. PLAN: The patient is to remain n.p.o. She will be having an exploratory laparotomy with MD Saritha Olivarez PA-C /[id number]
[2018-06-30] MEDS ORDERED: Non-Formulary Medication 1 Each (Levothyroxine Sodium [Synthroid] 125 MCG) PO SCH (09:00)
[2018-06-30] MEDS ORDERED: DULOXETINE 120 MG PO SCH (09:00)
--- NOTE | 2018-06-30 10:22 | PN ---
DATE OF SERVICE: 06/30/2018 SUBJECTIVE: The patient is doing very well today. No questions with respect to surgery. OBJECTIVE: VITAL SIGNS: Stable. She is afebrile. Blood pressure 114/77. ABDOMEN: Unchanged. ASSESSMENT AND PLAN: To the OR for abdominal exploration. We did again discuss risks, benefits, alternatives, and limitations. Russell Peña MD /[id number]
--- NOTE | 2018-06-30 10:23 | DISCH ---
DISCHARGE DIAGNOSIS: Drainage of seroma, abdomen. HOSPITAL COURSE: A 47-year-old female who was admitted with abdominal pain superior to her panniculectomy scar. The patient underwent a CT scan, which showed a fluid collection. There was a concern of possible bowel involvement. However, two ultrasounds were performed, one preoperatively and one intraoperatively, and did not show any evidence of bowel involvement. The patient underwent her seroma drainage and culture without difficulty. Prior to discharge, her pain was well controlled. No nausea, vomiting, shortness of breath, or chest pain. FOLLOWUP: With Surgery in 7 to 14 days. ACTIVITY: No lifting greater than 30 pounds x30 days. DISCHARGE MEDICATIONS: Please see MAR.
[2018-06-30] MEDS: Pantoprazole 40 MG Vial IVPUSH SCH (11:29)
[2018-06-30] MEDS: Gabapentin 100 MG Cap PO SCH (11:29)
[2018-06-30] MEDS: Acetaminophen 325 MG Tab PO PRN (11:29)
--- NOTE | 2018-06-30 14:11 | CRLUS ---
INDICATION: Evaluate fluid collection and keyanna for drainage TECHNIQUE: Ultrasound abdomen limited. Sonographic images of the lower abdomen were obtained using hale-scale and color Doppler images. COMPARISON: CT abdomen/pelvis 06/29/2018 FINDINGS: Targeted ultrasound to the right lower abdomen adjacent to the site of recent surgical incision demonstrates a focal intraperitoneal fluid collection measuring approximately 9 x 6 cm immediately deep to the anterior abdominal wall. There is no evidence of color flow or peristalsing loops of bowel within the collection. This correlates with findings on recent CT of the same date. A keyanna was made on the skin overlying the fluid collection. IMPRESSION: Approximately 9 x 6 cm intraperitoneal fluid collection deep to the site of recent surgical incision. A keyanna was placed on the skin overlying the collection. Dictated by Larisa Mattson MD @ Jun 30 2018 11:24AM Signed by Dr. Larisa Mattson @ Jun 30 2018 2:09PM
[2018-06-30] MEDS ORDERED: Acetaminophen/HYDROcodone 325-10 MG Tab PO ONE (14:41)
--- NOTE | 2018-06-30 15:41 | CONS ---
DATE OF SERVICE: 06/29/2018 REFERRING PHYSICIAN: CONSULTING PHYSICIAN: Russell Peña MD REASON FOR CONSULTATION: Abdominal pain. HISTORY OF PRESENT ILLNESS: This is a 47-year-old female, who had a hernia repair and panniculectomy performed on discharged. The patient was seen and initially managed on Keflex. It was also reported, the patient had a fever, but no nausea, vomiting, or bowel obstruction. The patient was transferred to [place] for further evaluation. PAST MEDICAL HISTORY: 1. Chronic diarrhea. 2. GERD. 3. Arthritis. 4. Back pain. 5. Fibromyalgia. 6. Neck pain. 7. Vertigo. 8. Anxiety. 9. Depression. 10.Hypothyroidism. 11.B12 deficiency. SOCIAL HISTORY: She is a smoker, but apparently quit in late 2018. REVIEW OF SYSTEMS: GENERAL: The patient is appropriate for condition. PULMONARY: New recent pneumonia concerns. CARDIOVASCULAR: No chest pain. Gastrointestinal: Some diarrhea, but appears to be what is reported as chronic with her. GENITOURINARY: No dysuria. NEUROLOGIC: No change in symptoms. PSYCH: No change in symptoms. The remainder review of systems is reviewed and is negative. PHYSICAL EXAMINATION: VITAL SIGNS: Temperature 98.3, blood pressure 117/83, pulse 79, respirations 18, 96% on room air. GENERAL: The patient is resting comfortably. HEENT: Pupils are equal. NECK: Supple. CARDIOVASCULAR: Regular rhythm and rate. RESPIRATORY: Lungs clear to auscultation bilaterally. ABDOMEN: No rebound. No tenderness, except for slightly superior to the panniculectomy in approximation to the fluid collection noted on CT scan. LABORATORY DATA: Imaging: I did review the CT scan which shows a fluid collection. There was some question of bowel involvement. ASSESSMENT: Seroma collection. PLAN: The patient will be undergoing ultrasound evaluation. The patient will be taken to the operating room for seroma drainage. We also will review if there is the bowel involvement. Therefore, we will open, do an abdominal exploration, and mesh evaluation with possible repeat hernia repair. We discussed risks, benefits, alternatives, and limitations including, but not limited to infection, bleeding, and perforation, injury to abdominal structures such as bowel and bladder. Russell ePña MD /[id number]
--- NOTE | 2018-07-14 15:00 | OR ---
DATE OF PROCEDURE: 06/30/2018 SURGEON: Russell Peña MD PROCEDURE: Drainage of hematoma/seroma, midline panniculectomy incision. PREOPERATIVE DIAGNOSIS: Fluid collection noted on CT. POSTOPERATIVE DIAGNOSIS: Fluid collection noted on CT. RISKS: Risks, benefits, alternatives, and limitations including, but not limited to infection, bleeding, and perforation were explained to the patient. They wished to proceed. PROCEDURE IN DETAIL: The patient was placed in supine position. CT scan showed a moderate- sized fluid collection in mid abdomen, which was identified with ultrasound. A catheter was able to be passed within this, and approximately 50 mL of seroma/blood type fluid was able to be aspirated. Dressings were applied. The patient tolerated the procedure well. Russell Peña MD /[id number]
== END 2018-06-30 15:30 | disposition home or self-care (01) | DRG 920 ==
LOC: JP.MS 08:52
PROVIDERS: ADMIT Physician Assistant Medical; ATTEND Physician Assistant Medical
PROC: 0J983ZZ Drainage of Abdomen Subcutaneous Tissue and Fascia, Percutaneous Approach (ICD-10-PCS; principal; 2018-06-30)
DX: L76.34 Postprocedural seroma of skin and subcutaneous tissue following other procedure (principal); Z68.41 Body mass index [BMI] 40.0-44.9, adult; K91.2 Postsurgical malabsorption, not elsewhere classified; L76.32 Postprocedural hematoma of skin and subcutaneous tissue following other procedure; Y83.8 Other surgical procedures as the cause of abnormal reaction of the patient, or of later complication, without mention of misadventure at the time of the procedure; K52.9 Noninfective gastroenteritis and colitis, unspecified; K21.9 Gastro-esophageal reflux disease without esophagitis; M19.90 Unspecified osteoarthritis, unspecified site; M54.9 Dorsalgia, unspecified; G89.29 Other chronic pain; M79.7 Fibromyalgia; M54.2 Cervicalgia; M06.9 Rheumatoid arthritis, unspecified; R42 Dizziness and giddiness; F41.9 Anxiety disorder, unspecified; F32.9 Major depressive disorder, single episode, unspecified; E03.9 Hypothyroidism, unspecified; E53.8 Deficiency of other specified B group vitamins; E66.01 Morbid (severe) obesity due to excess calories; E55.9 Vitamin D deficiency, unspecified; D50.9 Iron deficiency anemia, unspecified; F17.200 Nicotine dependence, unspecified, uncomplicated; H54.7 Unspecified visual loss; Z88.6 Allergy status to analgesic agent; Z88.1 Allergy status to other antibiotic agents; Z88.8 Allergy status to other drugs, medicaments and biological substances; Z98.84 Bariatric surgery status; Z90.49 Acquired absence of other specified parts of digestive tract; Z98.891 History of uterine scar from previous surgery; Z79.890 Hormone replacement therapy; Z79.899 Other long term (current) drug therapy
CPT/HCPCS: 76705; 87070; 87075; 87205; A9270-GY; C9113; J0690; J1170; J2001; J2250; J2405; J2704; J3010; J3410; J7042

== ENCOUNTER 2018-07-06 00:45 | Inpatient (IN) | payer MEDICAID ==
[2018-07-06] MEDS ORDERED: Lactated Ringers 1,000 ML IV ONE (01:12)
[2018-07-06] MEDS ORDERED: Naloxone 0.4 MG/ML SDV IVPUSH PRN (01:12)
[2018-07-06] MEDS ORDERED: Lactated Ringers 1,000 ML IV SCH (01:30)
[2018-07-06] MEDS: diphenhydrAMINE 50 MG/ML SDV IVPUSH PRN ×5 (01:45→22:10)
[2018-07-06] MEDS: Meropenem 500 MG in Sodium Chloride 0.9% 50 ML IV SCH ×4 (02:03→20:03)
[2018-07-06] MEDS: HYDROmorphone/Normal Saline 15 MG/30 ML PCA IV PRN (02:08)
[2018-07-06] MEDS ORDERED: methylPREDNISolone Sodium Succinate 40 MG/1 ML SDV IVPUSH ONE (03:43)
[2018-07-06] MEDS: Dextrose 5%-Lactated Ringers 1,000 ML IV SCH ×3 (04:11→20:02)
--- NOTE | 2018-07-06 07:50 | PCM.HP ---
H&P History of Present Illness - General Date of Service: 07/06/18 Admit Problem/Dx: Admission Diagnosis/Problem Admission Diagnosis/Problem Abdominal abscess Source of Information: Patient History Limitations: Reports: No Limitations - History of Present Illness Initial Comments - Free Text/Narative: Pt is s/p hernia repair & panniculectomy on 06/06/18. She was seen in the ER on and was found to have fluid in her abdomen. Fluid was removed on Tuesday and she was discharged. 07/05 she developed moderate-severe lower abdominal pain and feels more bloated after doing some house work the day prior. She is nauseated and has had watery diarrhea x2 days. She denies any vomiting, bloody stools, fever, chills. Stated she was tested for C. Diff last week at an outside facility and it was negative. History of depression and hypothyroidism, 2 C- sections, 2 lapbands, Duodenal Switch, and previous hernia repairs. She quit smoking 03/2018 and reports 1-2 drinks/month. Onset of Symptoms: Reports: Gradual Duration of Symptoms: Reports: Constant Location: Reports: Abdomen Quality: Reports: Ache, Pressure Severity: Moderate Improves with: Reports: None Worsens with: Reports: Movement Associated Symptoms: Reports: Nausea/Vomiting (no vomiting) Right Lower Abdomen Pain Score (Numeric/FACES): 3 - Related Data Allergies/Adverse Reactions: Allergies Allergy/AdvReac Type Severity Reaction Status Date / Time adhesive tape Allergy Rash Verified 05/10/18 10:44 amoxicillin Allergy Hives Verified 05/10/18 10:44 morphine AdvReac Nausea and Verified 05/11/18 15:25 Vomiting Home Medications: Home Meds Acetaminophen/HYDROcodone [[place] 325-5 MG] 1 - 2 tab PO Q6H PRN 05/10/18 [ History] DULoxetine [Cymbalta] 120 mg PO BEDTIME 05/10/18 [History] Gabapentin [Neurontin] 100 mg PO BID 05/10/18 [History] Ibuprofen 800 mg PO Q6HR PRN 05/10/18 [History] LORazepam [Ativan] 0.5 mg PO DAILY PRN 05/10/18 [History] Levothyroxine Sodium [Synthroid] 125 mcg PO BEDTIME 05/10/18 [History] Meloxicam [Mobic] 7.5 mg PO DAILY 05/10/18 [History] Omeprazole Magnesium [Prilosec Otc] 40 mg PO BEDTIME 05/10/18 [History] Ondansetron [Zofran ODT] 4 mg PO Q6H PRN 05/10/18 [History] Zolpidem [Ambien] 5 mg PO BEDTIME 05/10/18 [History] Calcium Carbonate/Vitamin D3 [Calcium 500 + Vit D 400] 1 tab PO BID 06/05/18 [ History] Cyanocobalamin (Vitamin B-12) [Vitamin B-12] 1,000 mcg SL DAILY 06/05/18 [ History] Levonorgestrel [Kyleena] 1 each IY ASDIRECTED 06/05/18 [History] Nystatin [Nystatin Oint] 1 dose TOP ASDIRECTED PRN 06/05/18 [History] Pediatric Multivit #17/Iron [Children's Chewables] 1 tab PO BID 06/05/18 [ History] Vitamin B Complex [B Complex] 1 tab PO DAILY 06/05/18 [History] Past Medical History HEENT History: Reports: Impaired Vision Other HEENT History: wears glasses Gastrointestinal History: Reports: Chronic Diarrhea, GERD 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: Reports: , Spontaneous Musculoskeletal History: Reports: Arthritis, Back Pain, Chronic, Fibromyalgia, Neck Pain, Chronic, RA Neurological History: Reports: Vertigo Psychiatric History: Reports: Anxiety, Depression Endocrine/Metabolic History: Reports: Hypothyroidism, Obesity/BMI 30+ Hematologic History: Reports: B12 Deficiency - Infectious Disease History Infectious Disease History: Reports: Chicken Pox, Shingles - Past Surgical History HEENT Surgical History: Reports: Oral Surgery GI Surgical History: Reports: Bariatric Procedure, Cholecystectomy, Colonoscopy , EGD, Hernia, Abdominal Female Surgical History: Reports: Section, D&C Endocrine Surgical History: Reports: None Neurological Surgical History: Reports: None Musculoskeletal Surgical History: Reports: Arthroscopic Knee Social & Family History - Family History Family Medical History: Noncontributory HEENT: Reports: Cataract Cardiac: Reports: CAD Musculoskeletal: Reports: Arthritis, Back pain, Chronic, Neck Pain, Chronic Psychiatric: Reports: Anxiety, Depression Endocrine/Metabolic: Reports: Diabetes, type II, Hypothyroidism Oncologic: Reports: Prostate - Tobacco Use Smoking Status *Q: Former Smoker Used Tobacco, but Quit: Yes Month/Year Tobacco Last Used: March 2018 - Caffeine Use Caffeine Use: Reports: Coffee, Soda - Alcohol Use Days Per Week of Alcohol Use: 0 - Recreational Drug Use Recreational Drug Use: No H&P Review of Systems - Review of Systems: Review Of Systems: See Below General: Reports: No Symptoms HEENT: Reports: No Symptoms Pulmonary: Reports: No Symptoms Cardiovascular: Reports: No Symptoms Gastrointestinal: Reports: Abdominal Pain, Nausea Genitourinary: Reports: No Symptoms Musculoskeletal: Reports: No Symptoms Skin: Reports: Pruritis Psychiatric: Reports: No Symptoms Neurological: Reports: No Symptoms Hematologic/Lymphatic: Reports: No Symptoms Exam - Exam Exam: See Below - Vital Signs Vital Signs: Last Vital Signs Temp 36.3 C 07/06/18 06:44 Pulse 68 07/06/18 06:44 Resp 18 07/06/18 06:44 BP 105/58 L 07/06/18 06:44 Pulse Ox 88 L 07/06/18 07:44 Weight: 117.027 kg - Exam General: Alert, Oriented, 4 HEENT: PERRLA, Hearing Intact, Mucosa Moist & [place], Nares Patent, Normal Nasal Septum, Posterior Pharynx Clear, Conjunctiva Clear, EOMI, EACs Clear, TMs Clear Neck: Supple, Trachea Midline, 2 Lungs: Clear to Auscultation, Normal Respiratory Effort Cardiovascular: Regular Rate, Regular Rhythm GI/Abdominal Exam: Normal Bowel Sounds, Soft, No Organomegaly, No Distention, No Abnormal Bruit, No Mass, Pelvis Stable, Tender (lower abdomen ), Other (2 ZAINAB drains with serous fluid output. Previous laporatomy sites with stitches still in place. ) Extremities: Normal Inspection, Normal Range of Motion, Non-Tender, No Pedal Edema, Normal Capillary Refill Skin: Warm, Dry, Intact Neuro Extensive - Mental Status: Alert, Oriented x3, Normal Mood/Affect, Normal Cognition Psychiatric: Alert, Normal Affect, Normal Mood - Patient Data Lab Results Last 24 hrs: Laboratory Results - last 24 hr 07/06/18 Range/Units 04:24 Creatinine 0.7 (0.5-1.0) mg/dL Est Cr Clr Drug Dosing 83.95 mL/min Estimated GFR (MDRD) > 60 (>60) Result Diagrams: 07/06/18 04:24 - Problem List (1) Recurrent abdominal hernia SNOMED Code(s): 15756030, 92951792 ICD Code: K46.9 - UNSPECIFIED ABDOMINAL HERNIA WITHOUT OBSTRUCTION OR GANGRENE Status: Acute Current Visit: No (2) Status post hernia repair SNOMED Code(s): 55426934880559, 67608276364958 ICD Code: Z98.890 - OTHER SPECIFIED POSTPROCEDURAL STATES; Z87.19 - PERSONAL HISTORY OF OTHER DISEASES OF THE DIGESTIVE SYSTEM Status: Acute Current Visit: No Onset Date: ~06/06/18 (3) Status post panniculectomy SNOMED Code(s): 822355971, 445215765, 830394985 ICD Code: Z98.890 - OTHER SPECIFIED POSTPROCEDURAL STATES Status: Acute Current Visit: No Onset Date: ~06/06/18 (4) Bariatric surgery status SNOMED Code(s): 265666866, 828130230, 844198946 ICD Code: Z98.84 - BARIATRIC SURGERY STATUS Status: Chronic Current Visit : No (5) Depressive disorder SNOMED Code(s): 92257005 ICD Code: F32.9 - MAJOR DEPRESSIVE DISORDER, SINGLE EPISODE, UNSPECIFIED Status: Chronic Current Visit: No (6) Fibromyalgia SNOMED Code(s): 053284966 ICD Code: M79.7 - FIBROMYALGIA Status: Chronic Current Visit: No (7) Tobacco abuse SNOMED Code(s): 199423219 ICD Code: Z72.0 - TOBACCO USE Status: Chronic Current Visit: No (8) Abdominal pain SNOMED Code(s): 67769627 ICD Code: R10.9 - UNSPECIFIED ABDOMINAL PAIN Status: Acute Current Visit : Yes Problem List Initiated/Reviewed/Updated: Yes Orders Last 24hrs: Active Orders 24 hr Category Date Time Status Admission Status [Patient Status] [ADT] Routine ADT 07/06/18 01:12 Active Communication Order [RC] STAT Care 07/06/18 01:12 Active Intake and Output [RC] PRN Care 07/06/18 01:12 Active Notify Provider [RC] PRN Care 07/06/18 01:12 Active CURRICULUM AND INSTRUCTION SPECIALIST Record [RC] PER UNIT ROUTINE Care 07/06/18 01:12 Active Pulse Oximetry [RC] CONTINUOUS Care 07/06/18 01:12 Active Vital Signs [RC] Q4H Care 07/06/18 01:12 Active NPO Now [Nothing per Oral Now Diet] [DIET] Diet 07/06/18 Breakfast Active Dextrose 5%-Lactated Ringers 1,000 ml Med 07/06/18 03:30 Active IV ASDIRECTED HYDROmorphone/Normal Saline [Dilaudid CURRICULUM AND INSTRUCTION SPECIALIST 15 MG in NS Med 07/06/18 01:12 Active 30 ML] See Protocol IV ASDIRECTED PRN Meropenem [Merrem] 500 mg Med 07/06/18 02:00 Active Sodium Chloride 0.9% [Normal Saline] 50 ml IV Q6H Naloxone [Narcan] Med 07/06/18 01:12 Active 0.4 mg IVPUSH Q2M PRN diphenhydrAMINE [Benadryl] Med 07/06/18 01:12 Active 50 mg IVPUSH Q4H PRN Medication Discontinuation Instructions [OM.PC] Stat Oth 07/06/18 01:12 Ordered SCD [Sequential Compression Device] [OM.PC] Routine Oth 07/06/18 01:12 Ordered Medication Orders Diphenhydramine HCl (Benadryl) 50 mg IVPUSH Q4H PRN PRN Reason: Itching Last Admin: 07/06/18 06:58 Dose: 50 mg Admin: 07/06/18 01:45 Dose: 50 mg Hydromorphone HCl (Dilaudid Conference Services Director 15 Mg In Ns 30 Ml) 0 mg IV ASDIRECTED PRN; Protocol PRN Reason: Pain Last Admin: 07/06/18 02:08 Dose: 15 mg Dextrose/Lactated Ringer's (Dextrose 5%-Lactated Ringers) 1,000 mls @ 150 mls/ hr IV ASDIRECTED CONRAD Last Admin: 07/06/18 04:11 Dose: 150 mls/hr Meropenem 500 mg/ Sodium (Chloride) 50 mls @ 100 mls/hr IV Q6H CONRAD Last Admin: 07/06/18 02:03 Dose: 100 mls/hr Naloxone HCl (Narcan) 0.4 mg IVPUSH Q2M PRN PRN Reason: Respiratory Distress Assessment/Plan Comment:: 1. Abdominal Pain. 2. Recurrent abdominal hernia. 3. s/p hernia repair 4. s/p panniculectomy Will review CT from outside facility. Pt is currently afebrile, pain controlled. Will plan for surgery 07/07/18. NPO at midnight. 5. Bariatric Surgery Status 6. Depressio - Stable. on Cymbalta daily with ativan prn for anxiety. 7. Fibromyalgia - Stable 8. Tobacco abuse. Pt states quit date of 03/2018
[2018-07-06] MEDS ORDERED: methylPREDNISolone Sod Succ 80 MG in Dextrose 5% in Water 100 ML IV ONE ×2 (07:56)
[2018-07-06] MEDS ORDERED: methylPREDNISolone Sodium Succinate 125 MG/2 ML SDV IV ONE (08:15)
[2018-07-06] MEDS: Famotidine 20 MG/2 ML SDV IVPUSH SCH ×2 (08:34→20:20)
[2018-07-06] MEDS ORDERED: Levothyroxine 100 MCG Tab PO SCH (21:15)
[2018-07-06] MEDS ORDERED: Levothyroxine 50 MCG Tab ONE ×2 (21:32)
[2018-07-06] MEDS: DULoxetine 30 MG Cap PO SCH (21:34)
[2018-07-06] MEDS: Levothyroxine 25 MCG Tab PO SCH (21:35)
[2018-07-06] MEDS: Levothyroxine 100 MCG Tab PO SCH (21:35)
[2018-07-07] MEDS: hydrOXYzine HCl 100 MG/2 ML SDV IM PRN ×2 (00:48→05:23)
[2018-07-07] MEDS: Meropenem 500 MG in Sodium Chloride 0.9% 50 ML IV SCH ×3 (02:01→21:15)
[2018-07-07] MEDS: diphenhydrAMINE 50 MG/ML SDV IVPUSH PRN ×2 (02:21→23:57)
[2018-07-07] MEDS: Dextrose 5%-Lactated Ringers 1,000 ML IV SCH ×2 (04:03→10:45)
[2018-07-07] MEDS: HYDROmorphone/Normal Saline 15 MG/30 ML PCA IV PRN (07:27)
[2018-07-07] MEDS: Famotidine 20 MG/2 ML SDV IVPUSH SCH ×2 (08:51→21:24)
--- NOTE | 2018-07-07 09:12 | PCM.PN ---
- General Info Date of Service: 07/07/18 Admission Dx/Problem (Free Text): Admission Diagnosis/Problem Admission Diagnosis/Problem Abdominal abscess Subjective Update: She feels more distended today and her pain is 7/10. She denies any gas, nausea , fever, chills. Pain Score: 7 - Review of Systems General: Reports: No Symptoms HEENT: Reports: No Symptoms Pulmonary: Reports: No Symptoms Cardiovascular: Reports: No Symptoms Gastrointestinal: Reports: Abdominal Pain Genitourinary: Reports: No Symptoms Musculoskeletal: Reports: No Symptoms Skin: Reports: Pruritis (improving ) Neurological: Reports: No Symptoms Psychiatric: Reports: No Symptoms - Patient Data Vitals - Most Recent: Last Vital Signs Temp 35.8 C 07/07/18 08:28 Pulse 63 07/07/18 08:28 Resp 16 07/07/18 08:28 BP 117/66 07/07/18 08:28 Pulse Ox 96 07/07/18 08:28 Weight - Most Recent: 117.027 kg I&O - Last 24 Hours: Intake & Output 07/06/18 07/07/18 07/07/18 22:59 06:59 14:59 Intake Total 1965 2229 50 Output Total 1140 Balance 1965 1089 50 Lab Results Last 24 Hours: Laboratory Results - last 24 hr 07/07/18 07/07/18 Range/Units 04:45 04:45 WBC 12.4 H (4.5-11.0) K/uL RBC 4.30 (3.30-5.50) M/uL Hgb 12.0 (12.0-15.0) g/dL Hct 39.1 (36.0-48.0) % MCV 91 (80-98) fL MCH 28 (27-31) pg MCHC 31 L (32-36) % Plt Count 215 (150-400) K/uL Sodium 141 (140-148) mmol/L Potassium 4.4 (3.6-5.2) mmol/L Chloride 108 (100-108) mmol/L Carbon Dioxide 26 (21-32) mmol/L Anion Gap 7.4 (5.0-14.0) mmol/L BUN 7 (7-18) mg/dL Creatinine 0.7 (0.6-1.0) mg/dL Est Cr Clr Drug Dosing 83.95 mL/min Estimated GFR (MDRD) > 60 (>60) Glucose 128 H (74-106) mg/dL Calcium 8.7 (8.5-10.1) mg/dL Phosphorus 3.4 (2.5-4.9) mg/dL Magnesium 1.6 L (1.8-2.4) mg/dL Total Bilirubin 0.2 (0.2-1.0) mg/dL AST 19 (15-37) U/L ALT 15 (12-78) U/L Alkaline Phosphatase 97 (46-116) U/L Total Protein 6.1 L (6.4-8.2) g/dL Albumin 2.3 L (3.4-5.0) g/dL Globulin 3.8 H (2.3-3.5) g/dL Albumin/Globulin Ratio 0.6 L (1.2-2.2) Med Orders - Current: Current Medications Ropivacaine 58 ml/Dexamethasone 8 mg/Epinephrine HCl 0.4 mg/ Sodium Chloride 19.6 ml 0 ml NERVRT ASDIRECTED [facility] Diphenhydramine HCl (Benadryl) 50 mg IVPUSH Q4H PRN PRN Reason: Itching Last Admin: 07/07/18 02:21 Dose: 50 mg Duloxetine HCl (Cymbalta) 120 mg PO BEDTIME [facility] Last Admin: 07/06/18 21:34 Dose: 120 mg Famotidine (Pepcid) 40 mg IVPUSH BID [facility] Last Admin: 07/07/18 08:51 Dose: 40 mg Hydromorphone HCl (Dilaudid Door Core Assembler 15 Mg In Ns 30 Ml) 0 mg IV ASDIRECTED PRN; Protocol PRN Reason: Pain Last Admin: 07/07/18 07:27 Dose: 15 mg Hydroxyzine HCl (Vistaril) 100 mg IM Q4H PRN PRN Reason: Itching Last Admin: 07/07/18 05:23 Dose: 100 mg Dextrose/Lactated Ringer's (Dextrose 5%-Lactated Ringers) 1,000 mls @ 150 mls/ hr IV ASDIRECTED [place] Last Admin: 07/07/18 04:03 Dose: 150 mls/hr Meropenem 500 mg/ Sodium (Chloride) 50 mls @ 100 mls/hr IV Q6H [facility] Last Admin: 07/07/18 08:42 Dose: 100 mls/hr Magnesium Sulfate 2 gm/ Premix 50 mls @ 25 mls/hr IV Q6H [facility] Stop: 07/10/18 04:59 Levothyroxine Sodium (Synthroid) 100 mcg PO BEDTIME [facility] Last Admin: 07/06/18 21:35 Dose: 100 mcg Levothyroxine Sodium (Levothyroxine) 25 mcg PO BEDTIME [facility] Last Admin: 07/06/18 21:35 Dose: 25 mcg Naloxone HCl (Narcan) 0.4 mg IVPUSH Q2M PRN PRN Reason: Respiratory Distress Discontinued Medications Lactated Ringer's (Ringers, Lactated) 1,000 mls @ 500 mls/hr IV ONETIME ONE Stop: 07/06/18 03:11 Last Admin: 07/06/18 01:44 Dose: 500 mls/hr Levothyroxine Sodium (Synthroid) 125 mcg PO DAILY [facility] Levothyroxine Sodium (Synthroid) Confirm Administered Dose 50 mcg .ROUTE .STK- MED ONE Stop: 07/06/18 21:33 Last Admin: 07/06/18 21:38 Dose: Not Given Levothyroxine Sodium (Synthroid) Confirm Administered Dose 100 mcg .ROUTE .STK- MED ONE Stop: 07/06/18 21:33 Last Admin: 07/06/18 21:38 Dose: Not Given Methylprednisolone Sodium Succinate (Solu-Medrol) 80 mg IVPUSH ONETIME ONE Stop: 07/06/18 03:44 Last Admin: 07/06/18 04:10 Dose: 80 mg Methylprednisolone Sodium Succinate (Solu-Medrol) 80 mg IV ONETIME ONE Stop: 07/06/18 08:16 Last Admin: 07/06/18 08:23 Dose: 80 mg - Exam General: Alert, Oriented HEENT: Pupils Equal, Pupils Reactive, EOMI, Mucous Membr. Moist/[place] Neck: Supple Lungs: Clear to Auscultation, Normal Respiratory Effort Cardiovascular: Regular Rate, Regular Rhythm GI/Abdominal Exam: Distended Extremities: Normal Inspection, No Pedal Edema Skin: Warm, Dry, Intact Wound/Incisions: Healing Well Neurological: No New Focal Deficit Psy/Mental Status: Alert, Normal Affect, Normal Mood - Problem List & Annotations (1) Recurrent abdominal hernia SNOMED Code(s): 22669999, 11153187 Code(s): K46.9 - UNSPECIFIED ABDOMINAL HERNIA WITHOUT OBSTRUCTION OR GANGRENE Status: Acute Current Visit: No (2) Status post hernia repair SNOMED Code(s): 72488131063315, 25187167999575 Code(s): Z98.890 - OTHER SPECIFIED POSTPROCEDURAL STATES; Z87.19 - PERSONAL HISTORY OF OTHER DISEASES OF THE DIGESTIVE SYSTEM Status: Acute Current Visit: No Onset Date: ~06/06/18 (3) Status post panniculectomy SNOMED Code(s): 876403744, 915890278, 751251754 Code(s): Z98.890 - OTHER SPECIFIED POSTPROCEDURAL STATES Status: Acute Current Visit: No Onset Date: ~06/06/18 (4) Bariatric surgery status SNOMED Code(s): 328362286, 328633040, 683307326 Code(s): Z98.84 - BARIATRIC SURGERY STATUS Status: Chronic Current Visit : No (5) Depressive disorder SNOMED Code(s): 04276769 Code(s): F32.9 - MAJOR DEPRESSIVE DISORDER, SINGLE EPISODE, UNSPECIFIED Status: Chronic Current Visit: No (6) Fibromyalgia SNOMED Code(s): 041194701 Code(s): M79.7 - FIBROMYALGIA Status: Chronic Current Visit: No (7) Tobacco abuse SNOMED Code(s): 984338741 Code(s): Z72.0 - TOBACCO USE Status: Chronic Current Visit: No (8) Abdominal pain SNOMED Code(s): 93038955 Code(s): R10.9 - UNSPECIFIED ABDOMINAL PAIN Status: Acute Current Visit: Yes - Problem List Review Problem List Initiated/Reviewed/Updated: Yes - Plan Plan:: 1. Abdominal Pain. 2. Recurrent abdominal hernia. 3. s/p hernia repair 4. s/p panniculectomy 5. Bariatric Surgery Status 6. Depression - Stable. on Cymbalta daily with ativan prn for anxiety. 7. Fibromyalgia - Stable 8. Tobacco abuse. Pt states quit date of 03/2018 Replace magnesium with 2 gm magnesium sulfate. Plan for surgery 07/07/18
[2018-07-07] MEDS: Magnesium Sulfate/Water 2 GM in Premix Bag 1 BAG IV SCH ×3 (10:01→23:57)
[2018-07-07] MEDS ORDERED: Meropenem 500 MG in Sodium Chloride 0.9% 50 ML IV ONE (12:00)
[2018-07-07] MEDS ORDERED: Ropivacaine 58 ML, Dexamethasone 8 MG, EPINEPHrine 0.4 MG, Sodium Chloride 0.9% 19.6 ML NERVRT SCH ×4 (12:00)
[2018-07-07] MEDS ORDERED: Glycopyrrolate 0.2 MG/ML 5 ML MDV ONE (12:50)
[2018-07-07] MEDS ORDERED: Midazolam 1 MG/ML 2 ML SDV ONE (12:50)
[2018-07-07] MEDS ORDERED: Neostigmine Methylsulfate 1 MG/ML 5 ML Syringe ONE (12:50)
[2018-07-07] MEDS ORDERED: fentaNYL 250 MCG/5 ML SDV ONE (12:50)
[2018-07-07] MEDS ORDERED: Ondansetron 4 MG/2 ML SDV ONE (12:50)
[2018-07-07] MEDS ORDERED: Rocuronium 50 MG/5 ML Vial ONE (12:50)
[2018-07-07] MEDS ORDERED: Propofol 200 MG/20 ML SDV ONE (12:50)
[2018-07-07] MEDS ORDERED: Succinylcholine 200 MG/10 ML MDV ONE (12:50)
[2018-07-07] MEDS ORDERED: Dexamethasone 4 MG/ML SDV ONE (12:50)
[2018-07-07] MEDS ORDERED: Meropenem 500 MG SDV ONE (14:37)
[2018-07-07] MEDS ORDERED: Sodium Chloride 0.9% 0 ML ONE (14:38)
[2018-07-07] MEDS ORDERED: Lactated Ringers 1,000 ML ONE (15:18)
[2018-07-07] MEDS ORDERED: Dextrose 5%-Lactated Ringers 1,000 ML IV SCH (16:30)
[2018-07-07] MEDS ORDERED: Fluconazole/Normal Saline 400 MG in Premix Bag 1 BAG IV ONE (17:00)
[2018-07-07] MEDS: DULoxetine 30 MG Cap PO SCH (21:15)
[2018-07-07] MEDS: Levothyroxine 100 MCG Tab PO SCH (21:16)
[2018-07-07] MEDS: Levothyroxine 25 MCG Tab PO SCH (21:16)
[2018-07-07] MEDS: Linezolid 600 MG in Premix Bag 1 BAG IV SCH (22:09)
[2018-07-08] MEDS ORDERED: Magnesium Hydroxide 400 MG/5 ML Susp 30 ML Cup PO PRN (00:38)
[2018-07-08] MEDS ORDERED: Polyethylene Glycol 3350 Powder 17 GM Packet PO PRN (00:40)
[2018-07-08] MEDS: Meropenem 500 MG in Sodium Chloride 0.9% 50 ML IV SCH ×5 (02:45→23:05)
[2018-07-08] MEDS: Magnesium Sulfate/Water 2 GM in Premix Bag 1 BAG IV SCH ×4 (02:46→20:34)
[2018-07-08] MEDS: HYDROmorphone/Normal Saline 15 MG/30 ML PCA IV PRN (05:25)
[2018-07-08] MEDS: Linezolid 600 MG in Premix Bag 1 BAG IV SCH ×2 (05:55→18:25)
[2018-07-08] MEDS: diphenhydrAMINE 50 MG/ML SDV IVPUSH PRN ×2 (08:04→20:38)
[2018-07-08] MEDS: Famotidine 20 MG/2 ML SDV IVPUSH SCH (10:38)
[2018-07-08] MEDS ORDERED: Dextrose 5%-Lactated Ringers 1,000 ML IV SCH (10:45)
[2018-07-08] MEDS ORDERED: Magnesium Hydroxide 400 MG/5 ML Susp 30 ML Cup PO ONE (11:00)
[2018-07-08] MEDS: Bisacodyl 5 MG Tab PO SCH ×2 (12:00→20:36)
[2018-07-08] MEDS: Lactobacillus Rhamnosus GG (Probiotic) Cap PO SCH ×2 (12:00→20:36)
[2018-07-08] MEDS: Gabapentin 100 MG Cap PO SCH ×2 (12:00→20:37)
[2018-07-08] MEDS: Mupirocin Oint 22 GM Tube TOP SCH ×2 (12:01→20:35)
[2018-07-08] MEDS: Fluconazole 100 MG Tab PO SCH (17:04)
[2018-07-08] MEDS: DULoxetine 30 MG Cap PO SCH (20:35)
[2018-07-08] MEDS: LORazepam 1 MG Tab PO PRN (20:35)
[2018-07-08] MEDS: Famotidine 20 MG Tab PO SCH (20:36)
[2018-07-08] MEDS: Levothyroxine 25 MCG Tab PO SCH (20:37)
[2018-07-08] MEDS: Levothyroxine 100 MCG Tab PO SCH (20:37)
[2018-07-08] MEDS: Zolpidem 5 MG Tab PO PRN (23:06)
[2018-07-09] MEDS: Magnesium Sulfate/Water 2 GM in Premix Bag 1 BAG IV SCH ×4 (03:00→20:25)
[2018-07-09] MEDS: Meropenem 500 MG in Sodium Chloride 0.9% 50 ML IV SCH ×4 (06:17→23:05)
[2018-07-09] MEDS: Linezolid 600 MG in Premix Bag 1 BAG IV SCH ×2 (06:17→18:16)
[2018-07-09] MEDS: Mupirocin Oint 22 GM Tube TOP SCH ×2 (08:57→20:27)
[2018-07-09] MEDS: Lactobacillus Rhamnosus GG (Probiotic) Cap PO SCH ×2 (08:57→20:28)
[2018-07-09] MEDS: Gabapentin 100 MG Cap PO SCH ×2 (08:58→20:28)
[2018-07-09] MEDS: Bisacodyl 5 MG Tab PO SCH (08:58)
[2018-07-09] MEDS: Famotidine 20 MG Tab PO SCH ×2 (08:59→20:26)
[2018-07-09] MEDS: Acetaminophen 500 MG Tab PO SCH ×3 (08:59→20:29)
[2018-07-09] MEDS: HYDROmorphone 2 MG Tab PO PRN ×3 (09:24→20:30)
[2018-07-09] MEDS: LORazepam 1 MG Tab PO PRN (10:18)
[2018-07-09] MEDS ORDERED: Sodium Chloride 0.9% 10 ML Syringe IV PRN (13:00)
[2018-07-09] MEDS: Fluconazole 100 MG Tab PO SCH (17:03)
[2018-07-09] MEDS: DULoxetine 30 MG Cap PO SCH (20:28)
[2018-07-09] MEDS: Levothyroxine 25 MCG Tab PO SCH (20:28)
[2018-07-09] MEDS: Levothyroxine 100 MCG Tab PO SCH (20:29)
[2018-07-09] MEDS: diphenhydrAMINE 50 MG/ML SDV IVPUSH PRN (20:30)
[2018-07-09] MEDS: Zolpidem 5 MG Tab PO PRN (22:47)
[2018-07-10] MEDS: HYDROmorphone 2 MG Tab PO PRN ×3 (02:25→11:57)
[2018-07-10] MEDS: Calcium Carbonate 500 MG Tab.Chew PO PRN ×2 (02:26→09:02)
[2018-07-10] MEDS: Magnesium Sulfate/Water 2 GM in Premix Bag 1 BAG IV SCH (02:27)
[2018-07-10] MEDS: Acetaminophen 500 MG Tab PO SCH ×2 (05:03→08:59)
[2018-07-10] MEDS: Meropenem 500 MG in Sodium Chloride 0.9% 50 ML IV SCH ×2 (05:04→11:26)
[2018-07-10] MEDS: Linezolid 600 MG in Premix Bag 1 BAG IV SCH (05:37)
[2018-07-10] MEDS: Mupirocin Oint 22 GM Tube TOP SCH (08:58)
[2018-07-10] MEDS: Famotidine 20 MG Tab PO SCH (08:59)
[2018-07-10] MEDS: Gabapentin 100 MG Cap PO SCH (08:59)
[2018-07-10] MEDS: Lactobacillus Rhamnosus GG (Probiotic) Cap PO SCH (08:59)
--- NOTE | 2018-07-10 10:41 | PN ---
DATE OF SERVICE: 07/08/2018 The patient has been afebrile with stable vital signs. No major problems were noted overnight. Her urine output is now good, showing we are finally caught up in terms of rehydration. We will back down on the IV rate. She is tolerating diet. We will restart some of her pertinent oral medications, give her some bowel stimulation. Thus far, the cultures are not growing anything out. We will continue the broad-spectrum coverage until approximately another 24 to 48 hours as a lapse, to make sure that we are not missing any occult organisms in the presence of the mesh. Otherwise, she will likely be able to be discharged home early in the week. We will send her home with the drains that are going into the panniculectomy site, but take out the drain that is intraabdominal, as it would allow organism to potentially creep down around that area of the mesh. Malik Santos MD /[id number]
--- NOTE | 2018-07-11 04:47 | DISCH ---
ADMISSION DIAGNOSES: Abdominal pain secondary to intraabdominal fluid seen on CT scan, SP hernia repair and panniculectomy, anxiety, depression, fibromyalgia, gastroesophageal reflux disease, hypothyroidism, obesity, and history of weight loss surgeries x3. DISCHARGE DIAGNOSES: Exploratory lap with drainage of intraabdominal inflammatory fluid collection and evacuation of intraperitoneal fibrous material for intraabdominal inflammatory fluid collection and separate intraabdominal fibrous exudate. Surgeon, Malik Santos MD. Surgery date 07/07/2018. HISTORY: Marcie Long was a direct transfer from the emergency room at [facility] for intraabdominal fluid collection. She was admitted on 07/06/2018. CT was obtained and she had her surgical procedure on 07/07/2018. She had no operative complications. On postoperative day #1, her Beauchamp catheter was discontinued. She was started on bowel stimulation. On 07/09/2018, CONSTRUCTION CARPENTERS HELPER was discontinued. She was changed to oral pain medication and on 07/10/2018, she was able to be discharged to home. PHYSICAL EXAMINATION: GENERAL: Marcie Long is a 47-year-old female. VITAL SIGNS: Height is 5 feet 2.99 inches. Weight is 258 pounds. BMI is 45. TPR is 97.7, 65, 16. Blood pressure 127/88. HEENT: Negative. NECK: Supple. HEART: Regular rate and rhythm. LUNGS: Clear. ABDOMEN: She has 3 ZAINAB drains. ZAINAB drain #1 will be removed prior to discharge. [place] intact. Panniculectomy incision is well healed. The 2 ZAINAB drains have been draining a clear pink drainage of 20 and 70 mL respectively. Abdominal binder has been on. EXTREMITIES: Without peripheral edema. DISPOSITION: Discharged to home. CONDITION: Stable and improving. FOLLOWUP APPOINTMENT: With Saritha Silveira PA-C on 07/13/2018 at 10:00 a.m. MEDICATIONS: New prescriptions: 1. Dilaudid 4 mg every 4 hours p.r.n. pain #40. 2. Culturelle 2 capsules oral twice daily. 3. Bacitracin ointment to put twice daily around each gastrostomy tube. She is to take the following medications as she did at home: 1. Tylenol 1000 mg every 6 hours. 2. Cymbalta 120 mg oral at bedtime. 3. Neurontin 100 mg oral twice daily. 4. Ativan 0.5 mg oral daily p.r.n. anxiety. 5. Nystatin ointment to use as directed b.i.d. 6. Prilosec 40 mg oral at bedtime. 7. Zofran ODT 4 mg every 6 hours p.r.n. nausea. 8. Multivitamin 1 twice daily. 9. B complex 1 daily. 10.Ambien 5 mg oral at bedtime. 11.Continue taking calcium citrate b.i.d. 12.Vitamin B12, 1000 mcg IM. Discontinue taking ibuprofen and Mobic. DIET: Usual diet as tolerated. Drink 8 to 10 glasses of water a day. ACTIVITY: Other activity as tolerated. No lifting greater than 10 pounds for 6 weeks[address] Driving, do not drive while on pain medication. May shower. DISCHARGE INSTRUCTIONS: Notify provider if any fever, increased pain, swelling, redness, nausea, or vomiting. Keep site clean and dry. Wound incision care, strip, empty, measure and record ZAINAB drains 4 times a day. Bring record of drainage to clinic appointment. Put bacitracin around each ZAINAB drain sites. Wear abdominal binder. Use incentive spirometer 10 times every hour while awake until the ZAINAB drains are out.
--- NOTE | 2018-07-11 07:59 | PN ---
DATE OF SERVICE: 07/09/2018 The patient has been afebrile with stable vital signs. Cultures thus far still are not growing anything out. We will continue antibiotics for today, and if it would be reasonable, tomorrow we will pull the inside the peritoneal cavity drain and probably discharge home tomorrow and switch over to oral Dilaudid for pain today. Malik Santos MD /[id number]
--- NOTE | 2018-07-13 15:46 | PN ---
DATE OF SERVICE: 07/06/2018 The patient presents with increasing abdominal pain. CT scan was obtained in [place]. The reading on this was somewhat ill-defined. We were able to get the actual CT images from the [place] today, and that shows fluid collection beneath the fascia and mesh. The plan will be to proceed with an exploration of this area via an anterior incision with general anesthetic. If this appears to be infected by means of either the gross appearance or Gram stain, we would most likely need to remove the mesh. Otherwise, if it is sterile collection, we will provide adequate drainage and close the fascia and mesh. Potential risks of the procedure including bleeding, infection, injury to underlying viscera, possible secondary infection from that procedure as well as remote possible cardiopulmonary septic or hemorrhagic complications leading to were all discussed, and the patient wishes to proceed. Surgery will be scheduled for tomorrow morning. Malik Santos MD /[id number]
--- NOTE | 2018-07-14 08:36 | OR ---
DATE OF PROCEDURE: 07/07/2018 PREOPERATIVE DIAGNOSIS: Subfascial possibly infected fluid collection. POSTOPERATIVE DIAGNOSIS: Probably sterile inflammatory fluid collection underneath the intraperitoneal mesh. OPERATIVE PROCEDURE: Exploratory laparotomy with drainage of intraperitoneal inflammatory fluid collection, along with evacuation of adjacent fibrinous material (71377). ANESTHESIA: General. WINDER TENDER: LUIS Vincent. INDICATION FOR PROCEDURE: Please see progress note dated 07/06/2018. DETAILS OF PROCEDURE: The patient was taken to the operating room, and after general endotracheal anesthesia was induced, bilateral transversus abdominis plane blocks were placed, affecting the mid and lower abdomen, under ultrasound guidance. Following this, the Beauchamp catheter was inserted, and the abdomen at that point had been prepped and draped. Midline incision was made from the area of the transverse Pfannenstiel-type incision upward and carried down through the full thickness of the abdominal wall. In the lower aspect, the fluid area at the recent panniculectomy site was opened and evacuated. Those drains had previously been removed. The incision then continued down through the fascia and through a portion of the mesh. As one passed through the mesh, the inflammatory fluid collection was encountered. This was not purulent grossly and was associated with quite a bit of gross inflammation of the herron of the cavity. This was evacuated, aerobic and anaerobic cultures obtained. The Gram stain did not show any organisms, and at this point, it was felt to most likely be an inflammatory fluid collection without a gross infection. Once this fluid had been evacuated and the rest of the material around it evacuated as well, a Paul-West drain was placed through a stab wound to the right of the incision and taken down through the mesh and then into the peritoneal cavity from that level. The mesh was then approximated with a running 2-0 Prolene stitch, and the fascia over that was then approximated with a running #2 Vicryl stitch. Two Paul-West drains were then placed into the seroma cavity of the panniculectomy incision, one on each side, and that area was then closed also with some 0 Vicryl stitch. Following this, the subcutaneous tissue was approximated with some 4-0 Vicryl stitch and the skin with jade. Dressing was applied. Drains were sutured to the skin with 4-0 Vicryl stitch as well. The patient was taken to the recovery room in satisfactory condition. Malik Santos MD /[id number]
== END 2018-07-10 13:23 | disposition home or self-care (01) | DRG 941 ==
LOC: JP.MS 00:45
PROVIDERS: ADMIT Surgery; ATTEND Surgery
PROC: 0W9G00Z Drainage of Peritoneal Cavity with Drainage Device, Open Approach (ICD-10-PCS; principal; 2018-07-07)
DX: R18.8 Other ascites (principal); E83.42 Hypomagnesemia; E53.8 Deficiency of other specified B group vitamins; E03.9 Hypothyroidism, unspecified; F32.9 Major depressive disorder, single episode, unspecified; F41.9 Anxiety disorder, unspecified; H54.7 Unspecified visual loss; K21.9 Gastro-esophageal reflux disease without esophagitis; M79.7 Fibromyalgia; M19.90 Unspecified osteoarthritis, unspecified site; M54.9 Dorsalgia, unspecified; G89.29 Other chronic pain; M54.2 Cervicalgia; Z88.1 Allergy status to other antibiotic agents; Z88.5 Allergy status to narcotic agent; Z98.84 Bariatric surgery status; Z87.891 Personal history of nicotine dependence; Z91.048 Other nonmedicinal substance allergy status; Z98.890 Other specified postprocedural states; Z90.49 Acquired absence of other specified parts of digestive tract
CPT/HCPCS: 36415; 80053; 82565; 83735; 84100; 85027; 87070; 87075; 87077; 87205; 94762; A9270-GY; J0171; J0330; J1100; J1170; J1200; J1450; J2020; J2185; J2250; J2405; J2704; J2710; J2795; J2920; J2930; J3010; J3410; J3475; J3490; J7042; J7050; J7120

== ENCOUNTER 2020-05-05 08:15 | Inpatient (IN) | payer MEDICAID ==
[2020-05-08] MEDS ORDERED: Gabapentin 100 MG Cap PO ONE (05:45)
[2020-05-08] MEDS ORDERED: Celecoxib 200 MG Cap PO ONE (05:45)
[2020-05-08] MEDS ORDERED: Dextrose 5%-Lactated Ringers 1,000 ML IV SCH (06:45)
[2020-05-08] MEDS ORDERED: Meropenem 500 MG SDV ONE (06:49)
[2020-05-08] MEDS ORDERED: Bupivacaine 0.5%/EPINEPHrine 1:200,000 50 ML MDV ONE (06:49)
[2020-05-08] MEDS ORDERED: fentaNYL 250 MCG/5 ML SDV ONE ×3 (07:07→11:04)
[2020-05-08] MEDS ORDERED: Rocuronium 50 MG/5 ML Vial ONE (07:08)
[2020-05-08] MEDS ORDERED: Propofol 200 MG/20 ML SDV ONE (07:08)
[2020-05-08] MEDS ORDERED: Neostigmine Methylsulfate 1 MG/ML 5 ML Syringe ONE (07:08)
[2020-05-08] MEDS ORDERED: Glycopyrrolate 0.2 MG/ML 5 ML MDV ONE (07:08)
[2020-05-08] MEDS ORDERED: Succinylcholine 200 MG/10 ML MDV ONE (07:08)
[2020-05-08] MEDS ORDERED: Dexamethasone 4 MG/ML SDV ONE (07:08)
[2020-05-08] MEDS ORDERED: Ondansetron 4 MG/2 ML SDV ONE (07:08)
[2020-05-08] MEDS ORDERED: Ketamine 50 MG in Sodium Chloride 0.9% 49.5 ML IV SCH (07:15)
[2020-05-08] MEDS ORDERED: Ketamine 500 MG/5 ML MDV IV SCH (07:15)
[2020-05-08] MEDS ORDERED: Naloxone 0.4 MG/ML SDV IVPUSH PRN (07:22)
[2020-05-08] MEDS: HYDROmorphone/Normal Saline 15 MG/30 ML PCA IV PRN (07:33)
[2020-05-08] MEDS ORDERED: Naloxone 0.4 MG/ML SDV IV PRN (08:00)
[2020-05-08] MEDS ORDERED: Lidocaine 1% with EPINEPHrine 1:100,000 50 ML MDV ONE (08:30)
[2020-05-08] MEDS ORDERED: Bupivacaine 0.5% 50 ML MDV ONE (08:30)
[2020-05-08] MEDS ORDERED: hydrOXYzine HCL 100 MG/2 ML SDV IM ONE (09:41)
[2020-05-08] MEDS ORDERED: Ondansetron 4 MG/2 ML SDV IVPUSH PRN (11:00)
[2020-05-08] MEDS: Sodium Ferric Gluconate Cmplex 250 MG in Sodium Chloride 0.9% 100 ML IV SCH (11:17)
[2020-05-08] MEDS: hydrOXYzine HCL 100 MG/2 ML SDV IM PRN ×2 (11:21→21:55)
[2020-05-08] MEDS: Dextrose 5%-Lactated Ringers 1,000 ML IV SCH ×3 (15:24→23:35)
[2020-05-08] MEDS: Pantoprazole 40 MG Tab.CR PO SCH (20:41)
[2020-05-08] MEDS: DULoxetine 30 MG Cap PO SCH (20:41)
[2020-05-08] MEDS: Celecoxib 200 MG Cap PO SCH (20:41)
[2020-05-08] MEDS: Gabapentin 100 MG Cap PO SCH (20:41)
[2020-05-09] MEDS: HYDROmorphone/Normal Saline 15 MG/30 ML PCA IV PRN (02:53)
[2020-05-09] MEDS: Dextrose 5%-Lactated Ringers 1,000 ML IV SCH (07:03)
[2020-05-09] MEDS ORDERED: Ondansetron 4 MG Tab.DIS PO PRN (07:15)
[2020-05-09] MEDS ORDERED: Dextrose 5%-Lactated Ringers 1,000 ML IV SCH (07:15)
[2020-05-09] MEDS: Sodium Ferric Gluconate Cmplex 250 MG in Sodium Chloride 0.9% 100 ML IV SCH ×2 (08:08→10:34)
[2020-05-09] MEDS: HYDROmorphone 2 MG Tab PO PRN ×2 (08:42→12:42)
[2020-05-09] MEDS: Bisacodyl 5 MG Tab PO SCH ×2 (08:43→21:43)
[2020-05-09] MEDS: Docusate Sodium 100 MG Cap PO SCH ×2 (08:43→21:43)
[2020-05-09] MEDS: DULoxetine 30 MG Cap PO SCH ×2 (08:43→21:43)
[2020-05-09] MEDS: Gabapentin 100 MG Cap PO SCH ×2 (08:44→21:41)
[2020-05-09] MEDS ORDERED: diphenhydrAMINE 25 MG Cap PO PRN (08:54)
--- NOTE | 2020-05-09 09:01 | PN ---
DATE OF SERVICE: 05/09/2020 SUBJECTIVE: Marcie is postoperative day #1. Pain is controlled with the DUBBING MACHINE OPERATOR. Oral intake 1150, output 1075. She has ambulated twice since surgery. Beauchamp catheter was removed early this a.m. and has not voided yet. Afebrile, and vital signs have been stable. REVIEW OF SYSTEMS: Remainder of review of systems negative for any pertinent positives and negatives. OBJECTIVE: GENERAL: Marcie Long is a pleasant 49-year-old female. She is alert and orientated, sitting up in the chair. VITAL SIGNS: TPR is 96.8, 65, 16, blood pressure 106/65. HEENT: Negative. NECK: Supple. HEART: Regular rate and rhythm. LUNGS: Clear. ABDOMEN: Dressings dry and intact. Abdominal binder is on. EXTREMITIES: Without peripheral edema. ASSESSMENT: 1. Exploratory laparotomy with lysis of adhesions. 2. Repair of recurrent incarcerated incisional hernia with mesh. 3. Placement of Interceed mesh. POSTOPERATIVE DIAGNOSES: Recurrent incarcerated incisional hernia and extensive intraabdominal adhesions. Date of procedure: 05/08/2020. Surgeon: Malik Santos MD. PLAN: 1. Decrease IV to 100 mL per hour. 2. Step 4 gastric bypass diet. 3. Dietary consult. 4. May shower. 5. Colace 100 mg p.o. b.i.d. 6. Dulcolax tablets 10 mg b.i.d. orally. 7. IV is very positional. We will give her second dose of the iron infusion now. If IV does infiltrate, nursing staff to call, and we will change to oral pain medication due to difficult IV start and change to her pain medication of choice, that is Dilaudid orally. 8. We will give a copy of weight loss surgery operative reports for Malik Santos MD. Marcie has had vertical banding twice and her third weight loss surgery was a duodenal switch. All surgeries were at the [facility] and her surgeon was Dr. Ashraf. 9. Ambulation encouraged per already ordered 6 times daily and continue use of incentive spirometer. 10.We will evaluate p.r.n. or in a.m. Saritha Silveira PA-C /[id number]
[2020-05-09] MEDS: hydrOXYzine HCL 100 MG/2 ML SDV IM PRN ×3 (11:56→23:07)
[2020-05-09] MEDS: oxyCODONE 5 MG Tab PO PRN ×2 (15:18→19:26)
[2020-05-09] MEDS: Pantoprazole 40 MG Tab.CR PO SCH (21:40)
[2020-05-09] MEDS: Celecoxib 200 MG Cap PO SCH (21:41)
[2020-05-09] MEDS: Zolpidem 5 MG Tab PO PRN (21:50)
[2020-05-10] MEDS: oxyCODONE 5 MG Tab PO PRN ×6 (00:25→23:57)
[2020-05-10] MEDS: hydrOXYzine HCL 100 MG/2 ML SDV IM PRN (03:56)
[2020-05-10] MEDS: Bisacodyl 5 MG Tab PO SCH ×3 (08:33→20:13)
[2020-05-10] MEDS: Acetaminophen 500 MG Tab PO SCH ×3 (08:33→20:10)
[2020-05-10] MEDS: DULoxetine 30 MG Cap PO SCH ×2 (08:33→20:11)
[2020-05-10] MEDS: Cyclobenzaprine 10 MG Tab PO SCH ×3 (08:33→23:57)
[2020-05-10] MEDS: Docusate Sodium 100 MG Cap PO SCH ×2 (08:33→20:10)
[2020-05-10] MEDS: Gabapentin 100 MG Cap PO SCH ×2 (08:33→20:11)
[2020-05-10] MEDS: Celecoxib 200 MG Cap PO SCH (20:10)
[2020-05-10] MEDS: Pantoprazole 40 MG Tab.CR PO SCH (20:12)
[2020-05-10] MEDS: Zolpidem 5 MG Tab PO PRN (20:28)
[2020-05-11] MEDS: Acetaminophen 500 MG Tab PO SCH ×2 (02:41→07:29)
[2020-05-11] MEDS: oxyCODONE 5 MG Tab PO PRN ×2 (05:50→09:45)
[2020-05-11] MEDS: Cyclobenzaprine 10 MG Tab PO SCH (07:28)
[2020-05-11] MEDS: Gabapentin 100 MG Cap PO SCH (09:46)
[2020-05-11] MEDS: Bisacodyl 5 MG Tab PO SCH (09:47)
[2020-05-11] MEDS: DULoxetine 30 MG Cap PO SCH (09:47)
[2020-05-11] MEDS: Docusate Sodium 100 MG Cap PO SCH (09:47)
--- NOTE | 2020-05-12 11:25 | DISCH ---
FINAL DIAGNOSES: 1. Recurrent incarcerated incisional hernia. 2. Extensive intra-abdominal adhesions. 3. Bariatric surgery status, most recently status post modified duodenal switch ([facility]). SECONDARY DIAGNOSES: 1. History of depression. 2. Treated hypothyroidism. 3. Hyperopia of both eyes. 4. History of rectal prolapse. 5. History of prediabetes. 6. Fibromyalgia. 7. Gastroesophageal reflux disease. OPERATIVE PROCEDURES: Done on 05/08, exploratory laparotomy with repair of recurrent incarcerated incisional hernia with mesh and the placement of Interceed mesh to limit adhesion formation between the abdominal wall and pelvic wall and underlying viscera. SUMMARY: This is a 49-year-old female presenting with a progressively enlarging and increasingly symptomatic incisional hernia located in the supraumbilical area. On admission, the patient underwent open repair of this, also had Interceed mesh placed underneath the permanent mesh to limit adhesion formation between both surfaces and the underlying viscera. Postoperatively, her pain control was initially somewhat marginal, it has improved now presently. She will be sent home with her usual medications plus: 1. Oxycodone 5 mg 1 to 2 tabs q.4 hours p.r.n. pain #40. 2. Flexeril 10 mg p.o. q.6 hours p.r.n. muscle spasms #40, refill x1. 3. Tylenol 1 g p.o. q.6 hours p.r.n. pain. Preoperatively, the patient was also on Celebrex and she will be continuing that. She will be instructed to avoid lifting more than 10 pounds for 6 weeks postoperatively and then followup will be with Saritha Silveira PA-C, [facility], on 05/16/2019. An additional note on this patient is she was inquiring regarding possible revision of her of bariatric surgery status with her weight remaining at 297 and BMI right around 50. We did review the [facility] operative reports. She had an initial vertical banded gastroplasty followed by revision of that and then subsequently revision to a modified duodenal switch. The latter was modified to include a very short common limb only around 75 cm, which is certainly low level where further distal revision would not be at all safe with increased risk of malabsorption. This was reviewed with the patient. /[id number]
--- NOTE | 2020-05-12 12:57 | PN ---
DATE OF SERVICE: 05/10/2020 The patient has been afebrile with stable vital signs, having quite a bit of pain, moved her over to oxycodone, and we will add some Tylenol and Flexeril today. She did move her bowels. We bowel stimulation, and she will likely be ready for discharge home tomorrow. Malik Santos MD /[id number]
--- NOTE | 2020-05-19 12:12 | OR ---
DATE OF PROCEDURE: 05/08/2020 SURGEON: Malik Santos MD PREOPERATIVE DIAGNOSIS: Recurrent incisional hernia. POSTOPERATIVE DIAGNOSES: 1. Incarcerated incisional hernia. 2. Extensive intraabdominal adhesions. OPERATIVE PROCEDURES: Exploratory laparotomy with lysis of adhesions and: 1. Repair of recurrent incarcerated incisional hernia with mesh (97508, [id number]). 2. Placement of Interceed mesh to limit recurrent adhesion formation between pelvic and abdominal wall and underlying viscera ([id number]). ANESTHESIA: General. RETIREMENT SPECIALIST: Saritha Silveira PA-C INDICATIONS FOR PROCEDURE: The patient presents with progressively symptomatic recurrent incisional hernia located in the upper midline area. The plan is to proceed with open repair of this, and the degree of muscular splaying and separation would make an open approach more appropriate in terms of being able to get a secure closure of the abdominal fascia which will produce somewhat stable abdominal wall over time. Mesh repair would be indicated as well. Potential risks including bleeding, infection, injury to underlying viscera, problems with mesh becoming infected or the hernia recurring were gone over along with remote possibility of cardiopulmonary, septic, or hemorrhagic complications leading to , and the patient wishes to proceed. DETAILS OF PROCEDURE: The patient was taken to the operating room, placed in a supine position. After general endotracheal anesthesia was induced, a Beauchamp catheter was inserted, and the abdomen prepped and draped. The upper midline incision was then reused and carried down through the skin, subcutaneous tissue. Some excess skin and fat in the midline was excised to allow more satisfactory closure at the end of the procedure. At that point, the hernia sac was identified and dissected down to the level of the fascia circumferentially. Hernia sac was then entered and was noted to have some incarcerated transverse colon and omentum within it. The adhesions were then dissected free from the hernia sac which was then excised flush with the underlying fascia. Around the fascial defect, there were also considerable adhesions between the omentum and small bowel and the anterior abdominal wall. These were taken down to the point where there will be satisfactory placement of the mesh well away from the fascial defect. A Ventrio ST hernia patch measuring 13.8 x 17.8 cm was then selected . A set of 2-0 Vicryl sutures were placed on the polypropylene side of the mesh, which was then soaked in antibiotic-containing saline solution. Small stab wounds were placed in the abdominal wall where those sutures will be pulled up in order to fix the mesh well away from the fascial defect. The left side of the mesh was placed initially. The mesh was oriented with the long axis in the transverse orientation recurrence in this case would tend to be primarily in the lateral direction. Once the left half of the sutures were pulled up, the mesh was pulled up against the abdominal wall. Interceed mesh was placed underneath the mesh and from there down towards the pelvic and abdominal wall to limit recurrent adhesion formation between those surfaces and underlying viscera. Remaining sutures were then pulled up with the suture passer and the mesh secured in general position. The shelf of the mesh was then attached to the overlying abdominal wall with titanium tacking screws circumferentially. Some additional antibiotic irrigation was then used over the mesh and the midline fascia approximated with a #2 Vicryl stitch, subcutaneous tissue with 2 layers of 3-0 and 4-0 Vicryl stitch deep and jade for the skin. Prior to closure, bilateral transversus abdominis plane blocks were placed, and the incision itself was anesthetized with 1% lidocaine with Marcaine. The patient was taken to the recovery room in satisfactory condition. Physician assistant operations manager, Saritha Silveira, played an essential role in assisting in this case, helping to position the patient, retract structures as needed, as well as suturing and stapling when indicated. Her presence improved patient safety and decreased operative time. Malik Santos MD /[id number]
== END 2020-05-11 11:15 | disposition home or self-care (01) | DRG 336 ==
LOC: JP.SDS 05-08 06:12 → JP.MS 05-08 06:12 → EDSTATUS 05-08 10:15
PROVIDERS: ADMIT Surgery; ATTEND Surgery
PROC: 0DNW0ZZ Release Peritoneum, Open Approach (ICD-10-PCS; principal; 2020-05-08)
PROC: 0WUF0JZ Supplement Abdominal Wall with Synthetic Substitute, Open Approach (ICD-10-PCS; 2020-05-08)
PROC: 3E0M05Z Introduction of Adhesion Barrier into Peritoneal Cavity, Open Approach (ICD-10-PCS; 2020-05-08)
DX: K43.0 Incisional hernia with obstruction, without gangrene (principal); Z68.43 Body mass index [BMI] 50.0-59.9, adult; K66.0 Peritoneal adhesions (postprocedural) (postinfection); F32.9 Major depressive disorder, single episode, unspecified; E03.9 Hypothyroidism, unspecified; H52.03 Hypermetropia, bilateral; K62.3 Rectal prolapse; F41.9 Anxiety disorder, unspecified; R73.03 Prediabetes; M79.7 Fibromyalgia; K21.9 Gastro-esophageal reflux disease without esophagitis; E66.01 Morbid (severe) obesity due to excess calories; Z79.899 Other long term (current) drug therapy; Z79.890 Hormone replacement therapy; Z88.1 Allergy status to other antibiotic agents; Z88.5 Allergy status to narcotic agent; Z88.6 Allergy status to analgesic agent; Z91.09 Other allergy status, other than to drugs and biological substances; Z90.49 Acquired absence of other specified parts of digestive tract; Z98.84 Bariatric surgery status; Z98.890 Other specified postprocedural states; Z87.891 Personal history of nicotine dependence
CPT/HCPCS: 36415; 80053; 81025; 82728; 83735; 84100; 85027; 88302; A9270-GY; C1713; C1781; J0171; J0330; J0690; J1100; J1170; J2020; J2185; J2405; J2704; J2710; J2795; J2916; J3010; J3410; J3490; J7030; J7060; J7121; U0002

== ENCOUNTER 2020-10-19 23:16 | Observation (INO) | payer MEDICAID ==
[2020-10-19] MEDS ORDERED: hydrOXYzine HCL 100 MG/2 ML SDV IM PRN (23:24)
[2020-10-19] MEDS ORDERED: Pantoprazole 40 MG Vial IVPUSH SCH (23:30)
[2020-10-19] MEDS: Dextrose 5%-Lactated Ringers 1,000 ML IV SCH (23:51)
[2020-10-20] MEDS ORDERED: DULoxetine 20 MG Cap PO SCH (00:05)
[2020-10-20] MEDS ORDERED: Metoclopramide 10 MG/2 ML SDV IVPUSH PRN (00:06)
[2020-10-20] MEDS: DULoxetine 30 MG Cap PO SCH ×2 (00:26→21:58)
[2020-10-20] MEDS: Gabapentin 100 MG Cap PO SCH ×2 (00:26→21:58)
[2020-10-20] MEDS: Ondansetron 4 MG/2 ML SDV IVPUSH PRN ×2 (05:00→10:57)
[2020-10-20] MEDS: HYDROmorphone 0.5 MG/0.5 ML Syringe IVPUSH PRN ×4 (05:00→17:01)
[2020-10-20] MEDS ORDERED: Zolpidem 5 MG Tab PO PRN (07:12)
[2020-10-20] MEDS ORDERED: LORazepam 0.5 MG Tab PO PRN (07:12)
[2020-10-20] MEDS ORDERED: LEVONORGESTREL IUD IY SCH (07:15)
--- NOTE | 2020-10-20 07:21 | PCM.HP.2 ---
H&P History of Present Illness - General Date of Service: 10/20/20 Admit Problem/Dx: Admission Diagnosis/Problem Admission Diagnosis/Problem Partial small bowel obstruction Source of Information: Patient History Limitations: Reports: No Limitations - History of Present Illness Initial Comments - Free Text/Narative: Marcie states she developed abdominal pain on and off for one week. Pain is a pressure bloating type pain in her right mid and lower abdominal quadrants that radiates to her left lower abdominal quadrant. Associated with bloating and nausea. Has been eating without any change in abdominal pain. BMs have been daily but different stating that they are usually soft or loose and doesn't feel like she is emptying out completely. Marcie states the nausea and pain increased so bad last evening she went to the ED in [facility] and was transferred to [place], [place] per her request for a partial small bowel obstruction. Onset of Symptoms: Reports: Gradual Duration of Symptoms: Reports: Week(s):, Getting Worse Location: Reports: Abdomen Quality: Reports: Ache, Dull, Pressure Severity: Severe Improves with: Reports: None Worsens with: Reports: None Associated Symptoms: Reports: Other (nausea) Abdominal Pain Score (Numeric/FACES): 7 - Related Data Allergies/Adverse Reactions: Allergies Allergy/AdvReac Type Severity Reaction Status Date / Time adhesive tape Allergy Rash Verified 05/08/20 07:12 amoxicillin Allergy Hives Verified 05/08/20 07:12 ketorolac [From Toradol] Allergy Facial Verified 05/08/20 07:12 Swelling morphine AdvReac Nausea and Verified 05/08/20 07:12 Vomiting Home Medications: Home Meds LORazepam [Ativan] 0.5 mg PO DAILY PRN 05/10/18 [History] Levothyroxine Sodium [Synthroid] 150 mcg PO BEDTIME 05/10/18 [History] Omeprazole Magnesium [Prilosec Otc] 40 mg PO BEDTIME 05/10/18 [History] Ondansetron [Zofran ODT] 4 mg PO Q6H PRN 05/10/18 [History] levonorgestreL [Kyleena] 1 each IY ASDIRECTED 06/05/18 [History] Ergocalciferol (Vitamin D2) [Vitamin D2] 50,000 unit PO MOWEFR 07/21/18 [Hist ory] Cholecalciferol (Vitamin D3) [Vitamin D] 5,000 unit PO DAILY 05/06/20 [History] Ferrous Sulfate 324 mg PO DAILY 05/06/20 [History] Multivitamin [Multiple Vitamins] 1 each PO DAILY 05/06/20 [History] Celecoxib [CeleBREX] 200 mg PO BEDTIME 05/08/20 [History] DULoxetine [Cymbalta] 60 mg PO BID 05/08/20 [History] Gabapentin [Neurontin] 100 mg PO BID 05/08/20 [History] Zolpidem [Ambien] 5 mg PO BEDTIME PRN 05/08/20 [History] Melatonin 20 mg PO 10/19/20 [History] Past Medical History HEENT History: Reports: Impaired Vision Other HEENT History: wears glasses Gastrointestinal History: Reports: Bowel Obstruction, Chronic Diarrhea, GERD 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: , Spontaneous Musculoskeletal History: Reports: Arthritis, Back Pain, Chronic, Fibromyalgia, Neck Pain, Chronic, RA Neurological History: Reports: Vertigo Psychiatric History: Reports: Anxiety, Depression Endocrine/Metabolic History: Reports: Hypothyroidism, Obesity/BMI 30+ Hematologic History: Reports: B12 Deficiency - Infectious Disease History Infectious Disease History: Reports: Chicken Pox, Shingles - Past Surgical History HEENT Surgical History: Reports: Oral Surgery GI Surgical History: Reports: Bariatric Procedure, Cholecystectomy, Colonoscopy, EGD, Hernia, Abdominal Female Surgical History: Reports: Section, D&C Endocrine Surgical History: Reports: None Neurological Surgical History: Reports: None Musculoskeletal Surgical History: Reports: Arthroscopic Knee Social & Family History - Family History Family Medical History: No Pertinent Family History HEENT: Reports: Cataract Cardiac: Reports: CAD Musculoskeletal: Reports: Arthritis, Back pain, Chronic, Neck Pain, Chronic Psychiatric: Reports: Anxiety, Depression Endocrine/Metabolic: Reports: Diabetes, type II, Hypothyroidism Oncologic: Reports: Prostate - Tobacco Use Tobacco Use Status *Q: Current Every Day Tobacco User Years of Tobacco use: 30 Packs/Tins Daily: 0.5 Used Tobacco, but Quit: No Second Hand Smoke Exposure: No - Caffeine Use Caffeine Use: Reports: Coffee - Recreational Drug Use Recreational Drug Use: No H&P Review of Systems - Review of Systems: Review Of Systems: See Below General: Reports: No Symptoms HEENT: Reports: No Symptoms Pulmonary: Reports: No Symptoms Cardiovascular: Reports: No Symptoms Gastrointestinal: Reports: Abdominal Pain (see chief complaint ) Genitourinary: Reports: No Symptoms Musculoskeletal: Reports: No Symptoms Skin: Reports: No Symptoms Psychiatric: Reports: No Symptoms Neurological: Reports: No Symptoms Hematologic/Lymphatic: Reports: No Symptoms Immunologic: Reports: No Symptoms Review of Systems Comment:: Marcie doesn't take any of the required Vitamins or supplements recommended after weight loss surgery. Exam - Exam Exam: See Below - Vital Signs Vital Signs: Last Vital Signs Temp 96.2 F L 10/20/20 03:20 Pulse 52 L 10/20/20 03:20 Resp 16 10/20/20 03:20 BP 102/66 10/20/20 03:20 Pulse Ox 95 10/20/20 03:20 Weight: 283 lb 9.6 oz - Exam Quality Assessment: DVT Prophylaxis General: Alert, Oriented, Cooperative HEENT: PERRLA, Conjunctiva Clear Neck: Supple, Trachea Midline Lungs: Clear to Auscultation, Normal Respiratory Effort Cardiovascular: Regular Rate, Regular Rhythm GI/Abdominal Exam: Normal Bowel Sounds, Soft, Non-Tender, No Distention (Female) Exam: Deferred Rectal (Female) Exam: Deferred Back Exam: Normal Inspection, Full Range of Motion Extremities: Normal Inspection, Normal Range of Motion, No Pedal Edema Skin: Warm, Dry, Intact Neurological: Cranial Nerves Intact Neuro Extensive - Mental Status: Alert, Oriented x3, Normal Mood/Affect, Normal Cognition, Memory Intact Neuro Extensive - Motor, Sensory, Reflexes: CN II-XII Intact Psychiatric: Alert, Normal Affect, Normal Mood - Patient Data Lab Results Last 24 hrs: Laboratory Results - last 24 hr 10/20/20 10/20/20 10/20/20 Range/Units 04:10 04:10 04:10 WBC 6.5 (4.5-11.0) K/uL RBC 4.81 (3.30-5.50) M/uL Hgb 14.1 (12.0-15.0) g/dL Hct 45.4 (36.0-48.0) % MCV 94 (80-98) fL MCH 29 (27-31) pg MCHC 31 L (32-36) % Plt Count 209 (150-400) K/uL Sodium 144 (140-148) mmol/L Potassium 4.6 (3.6-5.2) mmol/L Chloride 107 (100-108) mmol/L Carbon Dioxide 31 (21-32) mmol/L Anion Gap 5.7 (5.0-14.0) mmol/L BUN 10 (7-18) mg/dL Creatinine 0.8 (0.6-1.0) mg/dL Est Cr Clr Drug Dosing 71.14 mL/min Estimated GFR (MDRD) > 60 (>60) Glucose 115 H (74-106) mg/dL Calcium 8.5 (8.5-10.1) mg/dL Phosphorus 4.5 (2.5-4.9) mg/dL Magnesium 1.8 (1.8-2.4) mg/dL Ferritin 58 (8-388) ng/ml Total Bilirubin 0.3 (0.2-1.0) mg/dL AST 57 H D (15-37) U/L ALT 52 (12-78) U/L Alkaline Phosphatase 143 H (46-116) U/L Total Protein 6.1 L (6.4-8.2) g/dL Albumin 2.8 L (3.4-5.0) g/dL Globulin 3.3 (2.3-3.5) g/dL Albumin/Globulin Ratio 0.9 L (1.2-2.2) Vitamin B12 506 (193-986) pg/ml Vitamin D 25-Hydroxy 35.6 (30-100) ng/mL Result Diagrams: 10/20/20 04:10 10/20/20 04:10 Sepsis Event Note - Evaluation Sepsis Screening Result: No Definite Risk - Focused Exam Vital Signs: Vital Signs Temp Pulse Resp BP Pulse Ox 10/20/20 03:20 96.2 F L 52 L 16 102/66 95 10/19/20 23:20 95.5 F L 66 16 103/68 92 L - Problem List (1) Partial small bowel obstruction SNOMED Code(s): 289471944 ICD Code: K56.600 - PARTIAL INTESTINAL OBSTRUCTION, UNSPECIFIED TO CAUSE Status: Acute Current Visit: Yes (2) Bariatric surgery status SNOMED Code(s): 760437703, 270286496, 756506993 ICD Code: Z98.84 - BARIATRIC SURGERY STATUS Status: Chronic Current Visit: No (3) Depressive disorder SNOMED Code(s): 88103798 ICD Code: F32.9 - MAJOR DEPRESSIVE DISORDER, SINGLE EPISODE, UNSPECIFIED Status: Chronic Current Visit: No (4) Tobacco abuse SNOMED Code(s): 945807065 ICD Code: Z72.0 - TOBACCO USE Status: Chronic Current Visit: No (5) Fibromyalgia SNOMED Code(s): 464533518 ICD Code: M79.7 - FIBROMYALGIA Status: Chronic Current Visit: No Problem List Initiated/Reviewed/Updated: Yes Orders Last 24hrs: Active Orders 24 hr Category Date Time Status Patient Status [ADT] Routine ADT 10/19/20 23:20 Active Intake and Output [RC] PER UNIT ROUTINE Care 10/19/20 23:22 Active Up ad Teodora [RC] ASDIRECTED Care 10/19/20 23:20 Active Vital Signs [RC] Q4H Care 10/19/20 23:20 Active Clear Liquid Diet [DIET] Diet 10/20/20 Breakfast Ordered Nothing per Oral Now Diet [DIET] Diet 10/19/20 Breakfast Active Abdomen 2V AP Flat Upright [CR] Routine Exams 10/20/20 04:00 Taken Abdomen Pelvis w Cont [CT] Routine Exams 10/21/20 04:00 Ordered CORONAVIRUS COVID-19, IVONNE Routine Lab 10/20/20 07:11 Ordered VITAMIN B1 (THIAMINE), BLOOD Routine Lab 10/20/20 04:10 Received Acetaminophen [Tylenol Extra Strength] Med 10/19/20 23:25 Active 1,000 mg PO Q8H PRN Azithromycin [Zithromax] 125 mg Med 10/20/20 09:00 Ordered Sodium Chloride 0.9% [Normal Saline] 150 ml IV BID Celecoxib [CeleBREX] Med 10/20/20 21:00 Ordered 200 mg PO BEDTIME DULoxetine [Cymbalta] Med 10/20/20 00:12 Active 120 mg PO BEDTIME Dextrose 5%-Lactated Ringers 1,000 ml Med 10/19/20 23:30 Active IV ASDIRECTED Gabapentin [Neurontin] Med 10/20/20 00:06 Active 200 mg PO BEDTIME HYDROmorphone [Dilaudid] Med 10/19/20 23:23 Active 0.5 mg IVPUSH Q2H PRN LORazepam [Ativan] Med 10/20/20 07:12 Ordered 0.5 mg PO DAILY PRN Lactated Ringers w/MVI,Thiamine & Trace Minerals (1, Med 10/20/20 07:06 Ordered 000ml) MVI, Adult with Vitamin K [Infuvite Adult] 10 ml Thiamine [Vitamin B-1] 200 mg Zinc/Copper/Manganese/Selenium [Tralement] 1 ml Lactated Ringers [Ringers, Lactated] 1,000 ml IV ONETIME Levothyroxine Sodium [Synthroid] Med 10/20/20 21:00 Ordered 150 mcg PO BEDTIME Metoclopramide [Reglan] Med 10/20/20 00:06 Active 10 mg IVPUSH Q6H PRN Ondansetron [Zofran] Med 10/19/20 23:23 Active 4 mg IVPUSH Q4H PRN Pantoprazole [ProTONIX IV] Med 10/19/20 23:30 Active 40 mg IVPUSH Q24H Zolpidem [Ambien] Med 10/20/20 07:12 Ordered 5 mg PO BEDTIME PRN bisacodyL [Dulcolax] Med 10/20/20 09:00 Ordered 10 mg PO BID hydrOXYzine HCL [Vistaril] Med 10/19/20 23:24 Active 100 mg IM Q4H PRN levonorgestreL [Kyleena] Med 10/20/20 07:15 Ordered 1 each IY ASDIRECTED SCD [Sequential Compression Device] [OM.PC] Routine Oth 10/19/20 23:28 Ordered Resuscitation Status Routine Resus Stat 10/19/20 23:20 Ordered Medication Orders Acetaminophen (Acetaminophen 500 Mg Tab) 1,000 mg PO Q8H PRN PRN Reason: Pain Bisacodyl (Bisacodyl 5 Mg Tab) 10 mg PO BID [facility] Celecoxib (Celecoxib 200 Mg Cap) 200 mg PO BEDTIME [facility] Duloxetine HCl (Duloxetine 30 Mg Cap) 120 mg PO BEDTIME [facility] Last Admin: 10/20/20 00:26 Dose: 120 mg Documented by: FAYE Gabapentin (Gabapentin 100 Mg Cap) 200 mg PO BEDTIME [facility] Last Admin: 10/20/20 00:26 Dose: 200 mg Documented by: FAYE Hydromorphone HCl (Hydromorphone 0.5 Mg/0.5 Ml Syringe) 0.5 mg IVPUSH Q2H PRN PRN Reason: Pain Last Admin: 10/20/20 05:00 Dose: 0.5 mg Documented by: FAYE Hydroxyzine HCl (Hydroxyzine Hcl 100 Mg/2 Ml Sdv) 100 mg IM Q4H PRN PRN Reason: Pain Dextrose/Lactated Ringer's (Dextrose 5%-Lactated Ringers) 1,000 mls @ 100 mls/hr IV ASDIRECTED [facility] Last Admin: 10/19/20 23:51 Dose: 100 mls/hr Documented by: FAYE Multivitamins/Minerals 10 ml/Thiamine HCl 200 mg/ Zinc 1 ml / Lactated Ringer's 1,013 mls @ 500 mls/hr IV ONETIME ONE Stop: 10/20/20 11:01 Azithromycin 125 mg/ Sodium (Chloride) 150 mls @ 150 mls/hr IV BID [facility] Lorazepam (Lorazepam 0.5 Mg Tab) 0.5 mg PO DAILY PRN PRN Reason: Anxiety Metoclopramide HCl (Metoclopramide 10 Mg/2 Ml Sdv) 10 mg IVPUSH Q6H PRN PRN Reason: Nausea Last Admin: 10/20/20 00:26 Dose: 10 mg Documented by: FAYE Non-Formulary Medication (Levothyroxine Sodium [Synthroid]) 150 mcg PO BEDTIME [facility] Non-Formulary Medication (Levonorgestrel [Kyleena]) 1 each IY ASDIRECTED [facility] Ondansetron HCl (Ondansetron 4 Mg/2 Ml Sdv) 4 mg IVPUSH Q4H PRN PRN Reason: Nausea/Vomiting Last Admin: 10/20/20 05:00 Dose: 4 mg Documented by: FAYE Pantoprazole Sodium (Pantoprazole 40 Mg Vial) 40 mg IVPUSH Q24H [facility] Last Admin: 10/19/20 23:56 Dose: 40 mg Documented by: FAYE Zolpidem Tartrate (Zolpidem 5 Mg Tab) 5 mg PO BEDTIME PRN PRN Reason: Sleep Assessment/Plan Comment:: Marcie is admitted for observation pending results of CT Scan of Abdomen and Pelvis in the morning - 10/21/2020. Plan to stay 2 nights and 2 days. Saritha Proctor 10/20/2020 - Mortality Measure Prognosis:: Good
[2020-10-20] MEDS: Acetaminophen 500 MG Tab PO PRN ×2 (07:27→20:04)
[2020-10-20] MEDS ORDERED: MVI, Adult with Vitamin K 10 ML, Thiamine 200 MG, Zinc/Copper/Manganese/Selenium 1 ML i... IV ONE ×4 (09:00)
[2020-10-20] MEDS ORDERED: Azithromycin 125 MG in Sodium Chloride 0.9% 150 ML IV SCH (09:00)
[2020-10-20] MEDS: Dextrose 5%-Lactated Ringers 1,000 ML IV SCH (09:48)
[2020-10-20] MEDS: Bisacodyl 5 MG Tab PO SCH ×2 (10:07→21:58)
--- NOTE | 2020-10-20 10:28 | CR ---
Abdomen 2V AP Flat Upright CLINICAL HISTORY: Nausea and vomiting FINDINGS: There is moderate retained stool. Small intestinal gas pattern is nonacute. Patient has had previous ventral hernia repair. IMPRESSION: Fecal retention Nonspecific intestinal gas pattern
[2020-10-20 15:44] LABS: CORONAVIRUS COVID-19 NAA NEGATIVE (NEGATIVE)
[2020-10-20] MEDS ORDERED: Ondansetron 4 MG Tab.DIS PO PRN (18:30)
[2020-10-20] MEDS ORDERED: HYDROmorphone 2 MG Tab PO PRN (18:30)
[2020-10-20] MEDS ORDERED: Celecoxib 200 MG Cap PO SCH (21:00)
[2020-10-20] MEDS ORDERED: Non-Formulary Medication 1 Each (Levothyroxine Sodium [Synthroid] 125 MCG Tablet) PO SCH (21:00)
[2020-10-20] MEDS ORDERED: Pantoprazole 40 MG Tab.CR PO SCH (22:00)
[2020-10-21] MEDS ORDERED: Iohexol 647 MG/ML 50 ML SDV PO SCH (00:45)
[2020-10-21] MEDS ORDERED: Iopamidol 612 MG/ML 50 ML SDV PO ONE (00:56)
--- NOTE | 2020-10-21 05:20 | CRLCT ---
For Patients: As a result of the Century Cures Act, medical imaging exams and procedure reports are released immediately into your electronic medical record. You may view this report before your referring provider. If you have questions, please contact your health care provider. INDICATION: Follow up partial small bowel obstruction. COMPARISON: 10/19/2020 TECHNIQUE: CT examination of the abdomen and pelvis was performed without contrast enhancement using 3 mm thick axial sections from the lung bases through the pubic symphysis. Oral contrast was administered. Please note that all CT scans at this facility use dose modulation, iterative reconstruction, and/or weight-based dosing when appropriate to reduce radiation dose to as low as reasonably achievable. FINDINGS: In the abdomen, the liver remains low in density, representing fatty infiltration. There is relative sparing of the posterior portion of the right lobe. There is no sign of mass. The spleen, pancreas and adrenals are normal in appearance. The unenhanced kidneys are normal in appearance. The gallbladder is again seen to be absent, consistent with cholecystectomy. The abdominal aorta is normal in caliber with no sign of dilatation. There is no sign of retroperitoneal mass or adenopathy. The previously seen mild dilatation proximal small bowel loops extending to Way sharp point of transition in the right lower quadrant is no longer evident, consistent with resolution of previously seen small bowel obstruction. The rest of the loops of small bowel remain normal in appearance. Again seen are changes of bariatric surgery, with a longitudinal line of jade along the gastric fundus. Again seen is mesh hernia repair in the midline of the abdomen and upper pelvis. There is no sign of recurrence of hernia in the area of the mesh. The distal stomach and colon in the abdomen are normal in appearance. In the pelvis, the appendix is normal in appearance with no sign of inflammatory process. The loops of small bowel and colon in the pelvis are normal in appearance. The uterus is again seen to have satisfactory positioning of a T-shaped intrauterine device in the superior fundus. The adnexal regions are normal in appearance. The urinary bladder is normal in appearance. There is no sign of pelvic or inguinal mass or adenopathy. There is no sign of free air or free fluid in the abdomen or pelvis. The lung bases are clear. The osseous structures are normal in appearance for the patient`s age. IMPRESSION: Resolution of previously seen small bowel obstruction. The area of the stricture is now normal in appearance with no sign of any proximal small-bowel dilatation. Stable satisfactory appearance status post extensive mesh hernia repair involving the ventral abdominal and upper pelvic wall. CT of the abdomen shows stable satisfactory appearance status post bariatric surgery. No change in fatty infiltration of the liver with relative sparing of the posterior right lobe. CT of the pelvis show stable satisfactory positioning of a T-shaped intrauterine device. Please note that all CT scans at this facility use dose modulation, iterative reconstruction, and/or weight-based dosing when appropriate to reduce radiation dose to as low as reasonably achievable. Dictated by Nishant Laura MD @ 10/21/2020 5:19:[address] Nishant Laura @ Oct 21 2020 5:19AM
--- NOTE | 2020-10-21 08:00 | DISCH ---
ADMISSION DIAGNOSES: 1. Partial small bowel obstruction. 2. SP Soo-en-Y gastric bypass surgery. 3. Unspecified surgical malabsorption. 4. B12 deficiency. 5. Vitamin D deficiency. 6. Depression disorder. 7. Tobacco abuse. 8. Fibromyalgia. DISCHARGE DIAGNOSIS: Partial small bowel obstruction, resolved. HISTORY: Marcie Long was admitted to the hospital via ambulance from Emergency Department [facility] on 10/19/2020 with partial small bowel obstruction noted on CT scan. Marcie was admitted and labs were drawn. She was kept n.p.o. until 10/20/2020 and then started on a clear liquid diet and Dulcolax suppository. Later on 10/20, she started having bowel movements. Her nausea cleared and she had no further abdominal pain. She was able to be discharged to home with a completely clear CT scan on 10/21/2020. PHYSICAL EXAMINATION: GENERAL: Marcie Long is a pleasant 50-year-old female. VITAL SIGNS: Height is 5 feet 2.99 inches, weight is 283 pounds. TPR is 96.2, 63, 18. Blood pressure 98/54. HEENT: Negative. NECK: Supple. HEART: Regular rate and rhythm. LUNGS: Clear. ABDOMEN: Soft, nontender. EXTREMITIES: Without peripheral edema. NEURO: Cranial nerves 2 through 12 intact. SKIN: Without rash. PSYCHIATRIC: Mood and affect appropriate. DISPOSITION: Discharged to home. CONDITION: Stable and improving. FOLLOWUP APPOINTMENT: With Saritha Silveira PA-C, on 11/04/2020 at 10 a.m. for a virtual visit. DISCHARGE INSTRUCTIONS: She is to resume home medications. Diet: Full liquid diet for 2 days, then advance to GI soft, low-residue, low-fiber diet senior living, 65 g of protein and 64 ounces of fluid. Activity: As tolerated. May drive today. Shower/bathing: May shower. Notify provider if any fever, increased pain, nausea or vomiting. /[id number]
[2020-10-21] MEDS: Bisacodyl 5 MG Tab PO SCH (08:49)
== END 2020-10-21 14:30 | disposition home or self-care (01) ==
LOC: JP.MS 23:16
PROVIDERS: ADMIT Surgery; ATTEND Surgery
DX: K56.600 Partial intestinal obstruction, unspecified as to cause (principal); K21.9 Gastro-esophageal reflux disease without esophagitis; E03.9 Hypothyroidism, unspecified; E66.9 Obesity, unspecified; F17.210 Nicotine dependence, cigarettes, uncomplicated; M79.7 Fibromyalgia; K91.2 Postsurgical malabsorption, not elsewhere classified; E53.8 Deficiency of other specified B group vitamins; E55.9 Vitamin D deficiency, unspecified; Z20.822 Contact with and (suspected) exposure to COVID-19; Z88.1 Allergy status to other antibiotic agents; Z88.5 Allergy status to narcotic agent; Z91.09 Other allergy status, other than to drugs and biological substances; Z88.8 Allergy status to other drugs, medicaments and biological substances; Z79.899 Other long term (current) drug therapy; Z90.49 Acquired absence of other specified parts of digestive tract; Z98.890 Other specified postprocedural states; Z98.84 Bariatric surgery status
CPT/HCPCS: 0241U; 36415; 74019; 74176; 80053; 82306; 82607; 82728; 83735; 84100; 84425; 85027; 96365; 96366; 96368; 96375; 96376; A9270; C9113; G0378; J0456; J1170; J2405; J2765; J3411; J7120; J7121; Q9967